=== PATIENT | female | born 1995 | race Caucasian/White ===

== ENCOUNTER 2017-12-13 12:03 | Emergency (ER) | payer OTHER, SELFPAY ==
[2017-12-13 12:06] VITALS: BP 146/84; PULSE 98; RESP 18; TEMP 36.7; O2SAT 99
--- NOTE | 2017-12-13 12:36 | ED.GENADUL ---
Disposition Clinical Impression: Contusion of multiple sites of buttock Disposition: HOME Condition: Stable Instructions: Contusion in Adults (ED) Additional Instructions: Continue to use [id number] pain medication as needed for pain control. Return immediately if you have any saddle anesthesia, severe numbness and tingling or weakness to her lower extremities, fever associated back pain, changes in bowel or bladder function. Otherwise rest over the next couple days and follow-up with your primary care provider if not improving over the next 1-2 weeks. Referrals: Sydney Wiggins NP [Primary Care Provider] - 2 weeks (Follow-up your primary care provider if not showing signs of improvement in the next 1-2 weeks.) Forms: Work Release Medical Decision Making - Medical Decision Making Patient presenting to the emergency department status post fall that occurred 2 hours ago. Patient states that her employer is requiring her to come in for evaluation which she initially did not want to be seen for. Patient states that she landed on her buttocks and slid down approximately 7 stairs. She states only discomfort when sitting on her buttocks otherwise has full range of motion, no gait abnormalities, no numbness, no sounds of cauda equina. Inform patient of risks versus benefit of radiological imaging and at this time after discussing this she declines need for any imaging and states that she is mostly here to her work. I have a high suspicion of this being more contusion given full range of motion, no extreme discomfort noted on exam, and mechanism of more of a fall with sliding-type injury and not tumbling or anything of that nature I do feel that it is appropriate for patient to continue to use [id number] pain medication and to return for new or worsening symptoms. After discussion of diagnosis and plan of care with patient patient agreed and stated no further needs, questions, or concerns at this time. History of Present Illness - General Chief complaint: Orthopedic Stated complaint: FALL INJURY Time Seen by Provider: 12/13/17 12:36 Source: patient, RN notes reviewed Mode of arrival: ambulatory Limitations: no limitations - History of Present Illness Initial comments: Reports approximately 2 hours prior to arrival she was at work and there was some water at the top of some stairs and she slipped. When she slipped she attempted to stop her fall grabbing the handrail which also broke. She landed right on her buttocks and then slid down the stairs. Afterwards she took 600 mg of Motrin to help reduce the pain and went back to work sitting in her chair. Over the next 2 hours she noted increasing discomfort with sitting. Due to this her employer requested that she come into the emergency department for evaluation but she did not want to but given the request she is coming here to be seen. Patient denies any head or neck injury, loss of consciousness, syncope, numbness or tingling, weakness to lower extremities. Onset/Timin -: hour(s) Location: back, buttocks Severity scale (1-10): 7 Quality: aching Consistency: constant Improves with: none Worsens with: none Associated Symptoms: denies other symptoms Treatments Prior to Arrival: NSAID - Related Data Acetaminophen [Tylenol] 1,000 mg PO PRN PRN 04/29/16 Triamcinolone Acetonide [TRIAMCINOLONE ACET 0.5%] 1 applic TP BID PRN #1 gm 03/30/17 Melatonin/Pyridoxine HCl (B6) [Melatonin 3 mg Tablet] 1 each PO HS 07/08/17 Sertraline HCl 50 mg PO DAILY #90 tab-cap 07/08/17 Allergies Allergy/AdvReac Type Severity Reaction Status Date / Time codeine phosphate Allergy Intermediate Skin Rash Unverified 12/13/17 12:11 [From Tylenol-Codeine #3] hydrocodone Allergy Intermediate Nausea, Unverified 12/13/17 12:11 rash Review of Systems Constitutional: denies: chills, fever Eyes: denies: vision change Respiratory: denies: shortness of breath Cardiovascular: denies: chest pain, syncope Gastrointestinal: denies: abdominal pain, diarrhea, constipation Genitourinary: denies: dysuria Musculoskeletal: as per HPI, back pain Neurological: denies: weakness, numbness, paresthesias Past Medical History - Past Medical History Medical history: no medical history urachel cyst, postop seroma Surgical history: cholecystectomy, other (exp of urachel cyst of umbilicus) Family history: CAD/IN - Social History Smoking status: never smoker Alcohol use: none Drug use: none General Exam - General Limitations: no limitations General appearance: alert, in no apparent distress - Head Head exam: Present: atraumatic, normocephalic - Eye Eye exam: Present: normal apperance - Neck Neck exam: Present: full ROM. Absent: tenderness - Respiratory Respiratory exam: Present: normal lung sounds bilaterally. Absent: respiratory distress - Cardiovascular Cardiovascular Exam: Present: regular rate, normal rhythm - Back Exam Back exam: Present: full ROM, paraspinal tenderness (2 lower spine soft tissue), vertebral tenderness (Mild sacral tenderness otherwise unremarkable). Absent: muscle spasm, rash noted - Neurological Exam Neurological exam: Present: alert, oriented X3, normal gait, reflexes normal. Absent: altered, motor sensory deficit - Psychiatric Psychiatric exam: Present: normal affect, normal mood - Skin Skin exam: Present: warm, dry, intact, normal color Course Vital Signs - 24 hr 12/13/17 12:06 Temperature 36.7 C Pulse 98 H Respiratory 18 Rate Blood Pressure 146/84 Pulse Oximetry 99
--- NOTE | 2017-12-13 12:39 | ED.GENADUL_ITS ---
Disposition Clinical Impression: Contusion of multiple sites of buttock Disposition: HOME Condition: Stable Instructions: Contusion in Adults (ED) Additional Instructions: Continue to use [id number] pain medication as needed for pain control. Return immediately if you have any saddle anesthesia, severe numbness and tingling or weakness to her lower extremities, fever associated back pain, changes in bowel or bladder function. Otherwise rest over the next couple days and follow-up with your primary care provider if not improving over the next 1- 2 weeks. Referrals: Sydney Wiggins NP [Primary Care Provider] - 2 weeks (Follow-up your primary care provider if not showing signs of improvement in the next 1-2 weeks.) Forms: Work Release Medical Decision Making - Medical Decision Making Patient presenting to the emergency department status post fall that occurred 2 hours ago. Patient states that her employer is requiring her to come in for evaluation which she initially did not want to be seen for. Patient states that she landed on her buttocks and slid down approximately 7 stairs. She states only discomfort when sitting on her buttocks otherwise has full range of motion, no gait abnormalities, no numbness, no sounds of cauda equina. Inform patient of risks versus benefit of radiological imaging and at this time after discussing this she declines need for any imaging and states that she is mostly here to her work. I have a high suspicion of this being more contusion given full range of motion, no extreme discomfort noted on exam, and mechanism of more of a fall with sliding-type injury and not tumbling or anything of that nature I do feel that it is appropriate for patient to continue to use over-the- counter pain medication and to return for new or worsening symptoms. After discussion of diagnosis and plan of care with patient patient agreed and stated no further needs, questions, or concerns at this time. History of Present Illness - General Chief complaint: Orthopedic Stated complaint: FALL INJURY Time Seen by Provider: 12/13/17 12:36 Source: patient, RN notes reviewed Mode of arrival: ambulatory Limitations: no limitations - History of Present Illness Initial comments: Reports approximately 2 hours prior to arrival she was at work and there was some water at the top of some stairs and she slipped. When she slipped she attempted to stop her fall grabbing the handrail which also broke. She landed right on her buttocks and then slid down the stairs. Afterwards she took 600 mg of Motrin to help reduce the pain and went back to work sitting in her chair. Over the next 2 hours she noted increasing discomfort with sitting. Due to this her employer requested that she come into the emergency department for evaluation but she did not want to but given the request she is coming here to be seen. Patient denies any head or neck injury, loss of consciousness, syncope, numbness or tingling, weakness to lower extremities. Onset/Timin -: hour(s) Location: back, buttocks Severity scale (1-10): 7 Quality: aching Consistency: constant Improves with: none Worsens with: none Associated Symptoms: denies other symptoms Treatments Prior to Arrival: NSAID - Related Data Acetaminophen [Tylenol] 1,000 mg PO PRN PRN 04/29/16 Triamcinolone Acetonide [TRIAMCINOLONE ACET 0.5%] 1 applic TP BID PRN #1 gm Melatonin/Pyridoxine HCl (B6) [Melatonin 3 mg Tablet] 1 each PO HS 07/08/17 Sertraline HCl 50 mg PO DAILY #90 tab-cap 07/08/17 Allergies Allergy/AdvReac Type Severity Reaction Status Date / Time codeine phosphate Allergy Intermediate Skin Rash Unverified 12/13/17 12:11 [From Tylenol-Codeine #3] hydrocodone Allergy Intermediate Nausea, Unverified 12/13/17 12:11 rash Review of Systems Constitutional: denies: chills, fever Eyes: denies: vision change Respiratory: denies: shortness of breath Cardiovascular: denies: chest pain, syncope Gastrointestinal: denies: abdominal pain, diarrhea, constipation Genitourinary: denies: dysuria Musculoskeletal: as per HPI, back pain Neurological: denies: weakness, numbness, paresthesias Past Medical History - Past Medical History Medical history: no medical history urachel cyst, postop seroma Surgical history: cholecystectomy, other (exp of urachel cyst of umbilicus) Family history: CAD/IN - Social History Smoking status: never smoker Alcohol use: none Drug use: none General Exam - General Limitations: no limitations General appearance: alert, in no apparent distress - Head Head exam: Present: atraumatic, normocephalic - Eye Eye exam: Present: normal apperance - Neck Neck exam: Present: full ROM. Absent: tenderness - Respiratory Respiratory exam: Present: normal lung sounds bilaterally. Absent: respiratory distress - Cardiovascular Cardiovascular Exam: Present: regular rate, normal rhythm - Back Exam Back exam: Present: full ROM, paraspinal tenderness (2 lower spine soft tissue) , vertebral tenderness (Mild sacral tenderness otherwise unremarkable). Absent : muscle spasm, rash noted - Neurological Exam Neurological exam: Present: alert, oriented X3, normal gait, reflexes normal. Absent: altered, motor sensory deficit - Psychiatric Psychiatric exam: Present: normal affect, normal mood - Skin Skin exam: Present: warm, dry, intact, normal color Course Vital Signs - 24 hr 12/13/17 12:06 Temperature 36.7 C Pulse 98 H Respiratory 18 Rate Blood Pressure 146/84 Pulse Oximetry 99
[2017-12-13 13:00] VITALS: BP 147/74; PULSE 92; RESP 18; TEMP 36.7; O2SAT 98
== END 2017-12-13 13:00 | disposition home or self-care (01) ==
PROVIDERS: Emergency Provider Physician Assistant
DX: S70.01XA Contusion of right hip, initial encounter (principal); S70.02XA Contusion of left hip, initial encounter; W10.8XXA Fall (on) (from) other stairs and steps, initial encounter; Y99.0 Civilian activity done for income or pay
CPT/HCPCS: 99282

== ENCOUNTER 2018-05-08 08:04 | Emergency (ER) | payer OTHER, SELFPAY ==
[2018-05-08 08:16] VITALS: BP 130/83; PULSE 85; RESP 18; TEMP 36.6; O2SAT 97
--- NOTE | 2018-05-08 08:16 | ED.GENADUL_ITS ---
Discharge Plan Disposition Patient Disposition: HOME Condition: Stable Discharge Details Chief Complaint: Sorethroat Clinical Impression: Strep pharyngitis Primary Care Provider: Sydney Wiggins ED Provider: Sia Hunter Home Meds and New Rx's Prescriptions: New penicillin V potassium 500 mg tablet 500 mg PO BID 10 Days Qty: 19 RF: 0 Continued triamcinolone acetonide 454 GM ointment 1 applic Topical BID PRNQty: 1 RF: 1 melatonin-pyridoxine HCl (B6) 1 EACH tablet 1 ea PO HS RF: 0 sertraline 50 MG tablet 50 mg PO DAILY Qty: 90 RF: 3 acetaminophen [Mapap Extra Strength] 500 MG tablet 1,000 mg PO PRN PRNRF: 0 Discharge Instructions Instructions: Penicillin V (By mouth), Pharyngitis (ED) Additional Instructions: Please return immediately to the emergency department if you develop any new or worsening symptoms or if you become otherwise concerned. It is extremely important that you make an appointment to be seen by your primary care doctor in follow-up for this visit. Stand Alone Forms: Work Release Referrals: Sydney Wiggins, TELEMETRY NURSE [Primary Care Provider] - Medical Decision Making Kylee Juarez is a 22-year-old woman with history of anxiety, depression, obesity, postop complication from hernia repair 01/17 presenting to the emergency department with 3 days of sore throat and no other symptoms. On exam patient is well and nontoxic appearing. There is mild erythema of the posterior pharynx. She has no lymphadenopathy, she has full painless range of motion of the neck. Abdominal wound dressing is clean, dry, intact. Exam/history is not consistent with meningitis, retropharyngeal abscess, peritonsillar abscess, other abscess/deep space infection, impending airway compromise, sepsis, acute emergent process related to her open abdominal wound. Concern for bacterial versus viral pharyngitis. Plan for rapid strep test. Rapid strep positive. Will treat with penicillin. Lengthy discussion with patient regarding return to emergency room precautions and importance of outpatient follow-up with her PCP. She verbalizes understanding of the plan and is amenable. Medical Records Medical records reviewed: Yes I reviewed the patient's medical records. Lab Data Lab results reviewed: Yes I reviewed the patient's lab results. HPI General Mode of arrival: ambulatory . Date/Time Provider Initiated Documentation: 05/08/18 08:15 . Limitations to Documentation: no limitations . Information obtained by: patient, RN notes reviewed and old records reviewed . HPI Narrative: Kylee Juarez is a 22-year-old woman with history of anxiety, depression, obesity presenting to the emergency department with sore throat. Patient reports that her boyfriend tested positive for strep several days ago, and she has had a sore throat for approximately 3 days. She reports that she feels otherwise well. She has had no other pain, no fevers, no shortness of breath, no cough, no nausea/vomiting/diarrhea. Patient does report that she had hernia repair in December at [facility], this was complicated by wound infection. She has had essentially open wound to the abdomen status post surgery since December. She does dressing changes herself. She reports that she has had no increased pain at the site, no increased drainage, and no symptoms that she feels are related to her her postoperative couple occasions. She has been eating and drinking as usual. No other recent illnesses. No recent travel. Related Data Home Medications Medication Instructions Recorded Confirmed acetaminophen [Mapap Extra 1,000 mg PO PRN PRN 04/29/16 05/08/18 Strength] triamcinolone acetonide 1 applic TOPICAL BID PRN #1 gm 03/30/17 05/08/18 melatonin-pyridoxine HCl (B6) 1 ea PO HS 07/08/17 05/08/18 sertraline 50 mg PO DAILY #90 tab-cap 07/08/17 05/08/18 penicillin V potassium 500 mg PO BID 10 Days #19 tab 05/08/18 Previous Rx's Medication Instructions Recorded sertraline 50 mg PO DAILY #90 tab-cap 07/08/17 penicillin V potassium 500 mg PO BID 10 Days #19 tab 05/08/18 Allergies Allergy/AdvReac Type Severity Reaction Status Date / Time codeine phosphate Allergy Intermediate Skin Rash Unverified 05/08/18 08:23 [From Tylenol-Codeine #3] hydrocodone Allergy Intermediate Nausea, Unverified 05/08/18 08:23 rash Review of Systems Review of Systems Constitutional: denies fevers Eyes: denies eye pain ENT: denies facial pain, dental pain, reports sore throat Cardiovascular: denies chest pain, edema Respiratory: denies SOB, cough GI: denies abdominal pain, vomiting, diarrhea : denies flank pain MSK: denies back pain, neck pain, arthralgias, myalgias Skin: denies rash Neuro: denies headaches, lightheadedness, weakness [facility] Surgical History Cholecystectomy (~06/2014) Urachal sinus excsion. (06/11/15) excision urachal cyst and umbilical hernia repair (11/12/15) exploration wound abscess umbilicus (11/19/15) Family History Father Essential hypertension Hyperlipidemia Mother Substance abuse Neoplasm Grandfather No problems noted. Grandfather Heart disease Grandmother No problems noted. 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 pets and animals: Yes pets and animals: cat(s) frequency: 3-4 times per week duration: 15-30 minutes/day Smoking/Tobacco Use Status: Never passive smoking exposure: Yes alcohol intake: never substance use type: does not use margarette/sabianism: Catholic special margarette needs: No Exam Narrative Exam Narrative: Constitutional: well and [id number], pleasant, conversing normally HENT: head atraumatic, normocephalic normal inspection, mucous membranes moist, erythema of the posterior pharynx, no tonsillar edema, uvula midline Eyes: conjunctiva normal, sclera normal, pupils 3mm b/l Neck: no stridor, normal ROM, trachea midline full painless range of motion of the neck, no lymphadenopathy Chest: normal inspection Resp: normal work of breathing, LCTAB Cardio: normal rate, normal rhythm, no murmur appreciated GI: abdomen soft, non-tender, non-distended, dressing in place C/D/I Back: normal inspection, no rash Skin: warm, dry, normal color, no rash Neuro: alert, not altered, grossly non-focal, normal tone Ext: no edema Psych: normal mood, normal affect, normal behavior
[2018-05-08] MEDS: Penicillin V POTASSIUM 500 MG TAB PO (09:12)
== END 2018-05-08 09:16 | disposition home or self-care (01) ==
PROVIDERS: Emergency Provider Student in an Organized Health Care Education/Training Program
DX: J02.0 Streptococcal pharyngitis (principal)
CPT/HCPCS: 87880; 99283

== ENCOUNTER 2018-07-16 19:06 | Emergency (ER) | payer OTHER, MEDICAID, SELFPAY ==
--- NOTE | 2018-07-16 19:17 | NUR.NOTE ---
pt developed a cough and a sore throat a week ago that has progressively gotten worse. no fever or other reportable simptoms. pt states that she has not taken any Tylenol or cold medicine as she found out she is this week
[2018-07-16 19:19] VITALS: BP 113/83; PULSE 93; RESP 15; TEMP 36.7; O2SAT 99
--- NOTE | 2018-07-16 19:34 | W.ED.GENAD ---
Discharge Plan Disposition Patient Disposition: HOME Condition: Improving Discharge Details Chief Complaint: Sorethroat Clinical Impression: Upper respiratory virus Primary Care Provider: Sydney Wiggins ED Provider: Terrell Camarena Home Meds and New Rx's Prescriptions: New Cepacol Sorethroat-Cough 5-7.5 mg lozenge 1 adiel PO Q4H PRN (Reason: cough) Qty: 16 RF: 0 Discharge Instructions Instructions: Upper Respiratory Infection (ED) Additional Instructions: Continue vitamins and plans to follow-up with [facility]. May use Cepacol lozenges as prescribed. Use a teaspoon of honey at night for cough. May use Tylenol 650-975 mg every 6 hours as needed for aches pain or fever. Return if developed worsening cough with production of sputum or any other acute concern Medical Decision Making 23-year-old female presents from home with 5-7 days of cough and sore throat. She is well-appearing, afebrile, no acute distress. She states she is approximately 6-8 weeks by dates and has plans to follow-up with [facility]. Screening strep test obtained and negative. She is , therefore will treat with honey at bedtime, Cepacol lozenges. Do not feel this represents bacterial infection and therefore would defer antibiotics. She will follow-up with Sydney Wiggins for recheck if not improving. HPI General Mode of arrival: ambulatory. Date/Time Provider Initiated Documentation: 07/16/18 19:08. Limitations to Documentation: no limitations. Information obtained by: patient. History of Present Illness 23 year old F presents to the emergency department with the chief complaint of Sore throat and cough for 5-7 days, described as moderate, Quality is described as aching and dull, and is localized to the mouth and chest. Patient reports no radiation. Patient started experiencing this day(s) and it has been constant. No relieving factors improve symptom(s), No exacerbating factors reported . Patient notes cough and fever/chills. Patient did receive the following treatments prior to arrival, none Related Data Home Medications Medication Instructions Recorded Confirmed dextromethorphan-benzocaine 1 adiel PO Q4H PRN #16 each 07/16/18 [Cepacol Sorethroat-Cough] Previous Rx's Medication Instructions Recorded dextromethorphan-benzocaine 1 adiel PO Q4H PRN #16 each 07/16/18 [Cepacol Sorethroat-Cough] Allergies Allergy/AdvReac Type Severity Reaction Status Date / Time codeine phosphate Allergy Intermediate Skin Rash Unverified 07/16/18 19:20 [From Tylenol-Codeine #3] hydrocodone Allergy Intermediate Nausea, Unverified 07/16/18 19:20 rash General Stated Complaint: Sorethroat BOGDAN: 4 Review of Systems Review of Systems 6 systems reviewed and otherwise neg [facility] Surgical History Cholecystectomy (~06/2014) Urachal sinus excsion. (06/11/15) excision urachal cyst and umbilical hernia repair (11/12/15) exploration wound abscess umbilicus (11/19/15) Family History Father Essential hypertension Hyperlipidemia Mother Substance abuse Neoplasm Grandfather No problems noted. Grandfather Heart disease Grandmother No problems noted. Grandmother Essential hypertension Hyperlipidemia Brother Substance abuse Social History Smoking/Tobacco Use Status: Never Alcohol Intake: never Drug use: Never Substance use type: does not use Pets and animals: Yes Pets and animals: cat(s) Duration: 15-30 minutes/day Frequency: 3-4 times per week Geovanna/Sikh: Druze Special geovanna needs: No Do you feel safe at home: Yes Do you feel safe in your relationship?: Yes Exam Narrative Exam Narrative: GEN: awake, alert, oriented 3. Pleasant, well groomed, interactive. HEAD: Normocephalic, atraumatic ENT: Mucous membranes moist, oropharynx unremarkable with slight erythema, no exudate, External ear exam unremarkable. Tympanic membranes clear bilaterally EYES: PERRL, EOMI NECK: Full ROM, no KRISTA, no menigismus CHEST/RESP: Nontender, clear to auscultation bilateral, no wheeze/rhonchi/rales. Cough noted CARDIOVASCULAR: RRR, no murmur, rub ernesto. 2+ Rad pulse bilateral ABDOMEN: Soft, nontender, no mass. +Bowel sounds EXT: Full ROM, no edema, no rash Neuro: Grossly normal neurologic exam, conversant, interactive. Psych: Speech fluent, thoughts congruent, affect normal Course Vital Signs Temperature 36.7 C 07/16/18 19:19 Pulse 93 H 07/16/18 19:19 Respiratory Rate 15 07/16/18 19:19 Blood Pressure 113/83 07/16/18 19:19 Pulse Oximetry 99 07/16/18 19:19 Temperature 36.7 C 07/16/18 19:19 Temperature Source Skin 07/16/18 19:19 Pulse 93 H 07/16/18 19:19 Respiratory Rate 15 07/16/18 19:19 Respiratory Effort 07/16/18 19:21 Blood Pressure 113/83 07/16/18 19:19 Blood Pressure Position Sitting 07/16/18 19:19 Pulse Oximetry 99 07/16/18 19:19 Oxygen Delivery Method Room Air 07/16/18 19:19 Oxygen Flow Rate 0 07/16/18 19:19 Pain Level 6 07/16/18 19:19
[2018-07-16 19:53] VITALS: BP 113/83; PULSE 88; RESP 15; TEMP 36.7; O2SAT 99
== END 2018-07-16 19:56 | disposition home or self-care (01) ==
PROVIDERS: Emergency Provider Emergency Medicine
DX: J06.9 Acute upper respiratory infection, unspecified (principal)
CPT/HCPCS: 87880; 99283

== ENCOUNTER 2018-09-21 10:19 | Emergency (ER) | payer OTHER, MEDICAID, SELFPAY ==
[2018-09-21 10:31] VITALS: BP 135/83; RESP 104; TEMP 36.6; O2SAT 98
--- NOTE | 2018-09-21 10:46 | ED.GENADUL_ITS ---
Discharge Plan Disposition Patient Disposition: HOME Condition: Stable Discharge Details Chief Complaint: RespSymp Clinical Impression: CAP (community acquired pneumonia) Primary Care Provider: Sydney Wiggins ED Provider: Ray Sanchez Home Meds and New Rx's Prescriptions: New doxycycline hyclate 100 mg tablet 100 mg PO BID Qty: 14 RF: 0 Continued Cepacol Sorethroat-Cough 5-7.5 mg lozenge 1 adiel PO Q4H PRN (Reason: cough) Qty: 16 RF: 0 Discharge Instructions Instructions: Community Acquired Pneumonia (ED) Additional Instructions: if not better in a week see your primary care provider if you feel you are worsening, having worsening shortness of breath or persistent vomit return to the emergency department Medical Decision Making 23 yo female who denies chronic medical problems comes in with chief complaint of cough for several days. She states it is productive for yellow/green phlegm. Denies high fevers or recent travel. She is speakingin full sentences on exam in no distress. She has clear lungs throughout though does have small area of crackles on exam in left lower lobe. I suspect viral illness but given lung exam findings will tx as early cap. Advised f/u withp cp and return precautions given. Differential Diagnosis bronchitis, pna HPI General Mode of arrival: ambulatory . Date/Time Provider Initiated Documentation: 09/21/18 10:20 . Limitations to Documentation: no limitations . Information obtained by: patient . History of Present Illness 23 year old F presents to the emergency department with the chief complaint of cough, described as moderate, Patient started experiencing this day(s) (4) and it has been constant. No relieving factors improve symptom(s), No exacerbating factors reported . Patient notes denies fever/chills. Related Data Home Medications Medication Instructions Recorded Confirmed Cepacol Sorethroat-Cough 1 adiel PO Q4H PRN #16 each 09/21/18 doxycycline hyclate 100 mg PO BID #14 tab 09/21/18 Previous Rx's Medication Instructions Recorded Cepacol Sorethroat-Cough 1 adiel PO Q4H PRN #16 each 09/21/18 doxycycline hyclate 100 mg PO BID #14 tab 09/21/18 Allergies Allergy/AdvReac Type Severity Reaction Status Date / Time codeine phosphate Allergy Intermediate Skin Rash Unverified 09/21/18 10:34 [From Tylenol-Codeine #3] hydrocodone Allergy Intermediate Nausea, Unverified 09/21/18 10:34 rash General Stated Complaint: RespSymp BOGDAN: 4 Review of Systems Review of Systems All systems reviewed & are unremarkable except as noted in HPI and below Cardiovascular Denies chest pain Gastrointestinal Denies abdominal pain Integumentary/Breasts Denies rash PFSH Social History Smoking/Tobacco Use Status: Never Alcohol Intake: never Drug use: Never Substance use type: does not use 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 Pets and animals: Yes Pets and animals: cat(s) Duration: 15-30 minutes/day Frequency: 3-4 times per week Geovanna/Mandaen: Worship Special geovanna needs: No Do you feel safe at home: Yes Do you feel safe in your relationship?: Yes Exam Const General: no acute distress Orientation: alert HENMT Head: normal to inspection Ears: external ears normal General nose exam: external nose normal Mouth: moist mucous membranes Eyes General: appearance normal, both eyes and all related structures Neck Neck: normal visual inspection Resp Effort & Inspection: normal respiratory effort and able to speak in complete sentences Cardio Rate: regular rate Skin General skin exam: no rashes or lesions noted Neuro General: alert and oriented x3 Extrem General: normal to inspection Psych Mental Status: mental status grossly normal Course Vital Signs Temperature 36.6 C 09/21/18 10:31 Respiratory Rate 104 H 09/21/18 10:31 Blood Pressure 135/83 09/21/18 10:31 Pulse Oximetry 98 09/21/18 10:31 Temperature 36.6 C 09/21/18 10:31 Temperature Source Skin 09/21/18 10:31 Respiratory Rate 104 H 09/21/18 10:31 Respiratory Effort Non-Labored 09/21/18 10:31 Blood Pressure 135/83 09/21/18 10:31 Blood Pressure Position Sitting 09/21/18 10:31 Pulse Oximetry 98 09/21/18 10:31 Oxygen Delivery Method Room Air 09/21/18 10:31 Oxygen Flow Rate 0 09/21/18 10:31 Pain Level 6 09/21/18 10:31
[2018-09-21 11:02] VITALS: BP 126/79; RESP 99; TEMP 36.6; O2SAT 98
== END 2018-09-21 11:02 | disposition home or self-care (01) ==
PROVIDERS: Emergency Provider Emergency Medicine
DX: J18.9 Pneumonia, unspecified organism (principal)
CPT/HCPCS: 99283

== ENCOUNTER 2018-10-13 11:25 | Outpatient (CLI) | payer OTHER, SELFPAY ==
[2018-10-13 13:55] LABS: HCG Quant, Pregnancy 18440 mIU/mL (1-3)
== END 2018-10-13 11:45 ==
PROVIDERS: Visit Provider Obstetrics & Gynecology
DX: O20.9 Hemorrhage in early pregnancy, unspecified (principal)
CPT/HCPCS: 36415; 84702

== ENCOUNTER 2018-10-17 00:34 | Outpatient (CLI) | payer SELFPAY ==
--- NOTE | 2018-10-17 12:43 | DI.US_ITS ---
SYMPTOMS/DIAGNOSIS: FIRST TRIMESTER BLEEDING, O20.9 OB ULTRASOUND: Many abnormalities cannot be diagnosed. A normal exam does not exclude a congenital anomaly. HISTORY: Date of exam: 10/17/18 LMP: Unknown EDC by LMP: Previous study: wks Range: to EDC by prior us: Findings: Prior surgery/: BIOMETRY: PELVIC MEASUREMENTS: CRL: 8.7 mm 6+6 wks Uterus: 9.8 x 5.3 x 5.9 cm Yolk sac: mm wks Gest sac: mm wks Rt Ovary: x x cm BPD: mm wks HC: mm wks Lt Ovary: x x cm AC: mm wks FL: mm wks Comments: Composite Age (US): 6+6 wks EDC by US: 06/06/2019 Heart Rate: 171 BPM Amniotic Fluid: Oligo Normal Polyhydramnios Movement noted: Yes No Comments: Transabdominal and transvaginal exams were performed. The exam is limited by the patient's body habitus. A gestational sac is seen within the endometrial cavity near the fundus. A pole is identified with crown-rump length measurements corresponding to 6 weeks 6 days. cardiac activity is demonstrated at 171 beats per minute. The ovaries were unable to be visualized. There is a question of a small subchorionic hemorrhage. IMPRESSION: Early intrauterine gestation of 6 weeks 6 days. There is a question of a small chorionic hemorrhage. Exam is limited by the patient's body habitus.
== END 2018-10-17 00:54 ==
PROVIDERS: Visit Provider Obstetrics & Gynecology
DX: O20.9 Hemorrhage in early pregnancy, unspecified (principal)
CPT/HCPCS: 76801

== ENCOUNTER 2018-11-03 16:51 | Outpatient (REF) | payer OTHER, SELFPAY ==
--- NOTE | 2018-11-03 15:30 | PAPFT_PTH ---
PATIENT: Kylee Juarez LOC: [facility] U#:[id number] AGE/SX: 23/F ROOM: RE11/03/[address]: Akilah Albarran : 1995 BED: DIS: 11/03/2018 SPEC #: [id number] RECD: 11/06/18 12:48 STATUS: SANDRA AARON #: [id number] KASH: 11/03/18 15:[address]: Akilah Albarran DEPT: [facility] Cytology RECD BY: Anali Shea ENTERED: 11/06/18 12:48 SP TYPE: PAPFT OT DR: Sydney Wiggins APRN Tissues: 1 - CX/ENDOCX FOR PAP SMEARS Procedures: PAP THIN PREP/UVM Screening Comments: [id number]
[2018-11-03 17:24] LABS: *AMPHETAMINES SCREEN URINE Negative (Negative); *BARBITURATES SCREEN URINE Negative (Negative); *BENZODIAZEPINES SCREEN URINE Negative (Negative); Cannabinoids THC Negative (Negative); Cocaine Screen,Urine Negative (Negative); METHADONE URINE SCREEN Negative (Negative); OPIATES URINE SCREEN Negative (Negative)
[2018-11-03 17:36] LABS: Tricyclic Antidepressants Negative (Negative)
[2018-11-06 13:49] LABS: Chlamydia Result Negative; GC Result Negative; Specimen Description CERVIX
[2018-11-08 11:30] LABS: Buprenorphine Negative; Norbuprenorphine Negative
== END 2018-11-03 17:11 ==
LOC: LBN 16:51
PROVIDERS: Visit Provider Advanced Practice Midwife
DX: Z34.91 Encounter for supervision of normal pregnancy, unspecified, first trimester (principal); Z11.3 Encounter for screening for infections with a predominantly sexual mode of transmission; Z12.4 Encounter for screening for malignant neoplasm of cervix
CPT/HCPCS: 80307; 87491; 87591; 88142; 87086; 87480; 87510; 87660

== ENCOUNTER 2018-11-10 16:07 | Outpatient (CLI) | payer OTHER, SELFPAY ==
[2018-11-10 16:49] LABS: Abs Immature Grans 0.01 k/cumm (0.0-0.09); Absolute Basophil Count 0.03 k/cumm (0.0-0.2); Absolute Eosinophil Count 0.09 k/cumm (0.0-0.7); Absolute Lymphocyte Count 2.72 k/cumm (1.2-3.4); Absolute Monocyte Count 0.56 k/cumm (0.11-0.7); Absolute Neutrophil Count 5.61 k/cumm (1.2-6.7); Basophils % 0.3; HCT 37.2 % (36.0-46.0); HGB 12.2 g/dL (12.0-15.5); Immature Grans % 0.1; Lymphocytes % 30.2; Mean Corp. HGB Concentration 32.8 g/dL (32.0-36.0); Mean Corpuscular Hemoglobin 25.7 pg (27.0-33.0); Mean Corpuscular Volume 78.3 fL (80-95); Mean Platelet Volume 9.3 fL (8.0-11.0); Monocytes % 6.2; Neutrophils % 62.2; Platelet Count 235 x1000/uL (130-400); RBC 4.75 m/cumm (4.00-5.20); RBC Distribution Width 16.2 % (11.7-14.6); White Blood Cell Count 9.02 k/cumm (4.4-10.8)
[2018-11-10 18:16] LABS: TSH (W/Ref FT4) 2.02 uIU/mL (0.358-3.74)
[2018-11-13 10:32] LABS: Hepatitis C Ab w Rflx HCV PCR Negative (NEGAT)
[2018-11-13 11:25] LABS: Hepatitis B Surface Ag Negative (NEGAT)
[2018-11-13 11:29] LABS: HIV-1/2 Ag & Ab Screen Negative (NEGAT)
[2018-11-13 11:54] LABS: Rubella IgG Ab (UVM) Positive; Syphilis Serology (RPR) Negative (Negative); Varicella IgG Antibody Negative
== END 2018-11-10 16:27 ==
PROVIDERS: Visit Provider Obstetrics & Gynecology
DX: Z34.91 Encounter for supervision of normal pregnancy, unspecified, first trimester (principal); O99.89 Other specified diseases and conditions complicating pregnancy, childbirth and the puerperium; R10.9 Unspecified abdominal pain; Z11.4 Encounter for screening for human immunodeficiency virus [HIV]; Z11.59 Encounter for screening for other viral diseases; Z01.84 Encounter for antibody response examination
CPT/HCPCS: 36415; 80055; 82950; 86787; 86803; 86850; 86900; 86901; 87340; 87389; 84443; 86592; 86762; 87086

== ENCOUNTER 2018-12-01 14:18 | Outpatient (CLI) | payer OTHER, SELFPAY ==
[2018-12-01 15:39] LABS: Glucose,1 Hr (Glucola) 99 mg/dL (80-140)
== END 2018-12-01 14:38 ==
PROVIDERS: Advanced Practice Midwife; Visit Provider Obstetrics & Gynecology
DX: Z34.91 Encounter for supervision of normal pregnancy, unspecified, first trimester (principal)
CPT/HCPCS: 36415; 82950

== ENCOUNTER 2019-08-18 17:31 | Emergency (ER) | payer OTHER, MEDICAID, SELFPAY ==
[2019-08-18 17:34] VITALS: BP 162/87; PULSE 113; RESP 16; TEMP 36.2; O2SAT 98
--- NOTE | 2019-08-18 18:31 | ED.GENADUL_ITS ---
Discharge Plan Disposition Patient Disposition: HOME Condition: Stable Discharge Details Chief Complaint: Sorethroat Clinical Impression: Pharyngitis Primary Care Provider: Sydney Wiggins ED Provider: Medhat Pugh Home Meds and New Rx's Prescriptions: No Action acetaminophen 500 mg tablet 1,000 mg PO Q6H RF: 0 Discharge Instructions Instructions: Pharyngitis (ED) Additional Instructions: Rapid strep test negative, culture pending. Rest, [id number] medications as directed for symptomatic control, plenty of fluids to avoid dehydration. Given your symptoms, will set you up for COVID testing on Tuesday as an outpatient through our tent. Please watch for new or worsening symptoms and return to the ER for any concerns At this time your symptoms are concerning for coronavirus. CDC does recommend testing. It takes 48 to 72 hours for the test results to return. You will be contacted by [facility] staff when your results return. If you do not hear from them in 48 to 72 hours, please contact [facility]. Out of an abundance of precaution it is highly recommended that you self quarantine yourself for a total of 14 days or until symptom-free for greater than 24 to 48 hours. It would be prudent to wear a mask at all times, always wash her hands frequently, and follow-up closely with your primary care provider. It is recommended that you call your primary care provider prior to reassessment. If you are going to a health facility, please call/contact them before you arrive. At this time based on your current symptoms the CDC does not recommend admission, and there is no current clinical indication for your admission here at the hospital. However it is vitally important to monitor your symptoms closely, and if you notice any worsening of your symptoms, or any new symptoms such as worsening shortness of breath, difficulty breathing, persistent fever, worsening chills, chest pain, numbness, weakness, or fainting please call and then return immediately to the emergency department for reevaluation. Please call your primary care provider as soon as possible to make them aware of your current situation and for continued monitoring. As always, it was a pleasure participating in your medical care today. Stand Alone Forms: POSITIVE COVID-19/TO BE TESTED Medical Decision Making 24-year-old female with sore throat and URI-like symptoms over the past 5 days or so. She appears well, nontoxic. No recent travel or known exposure to a COVID positive patient, patient reports that family is home with similar s ymptoms. She is currently afebrile, lungs are clear to auscultation, O2 sat 98% on room air. Will obtain rapid strep and reassess Rapid strep negative, culture pending. No clear indication for chest x-ray. This is likely viral syndrome however given her symptoms we will set her up for Covid testing on Tuesday. The patient demonstartes some concerning red flags as noted by the CDC for coronavirus including fever, cough. The patient looks notably clinically well, and does not demonstrate evidence of respiratory distress, significant or severe illness, or sepsis. Per CDC recommendations, coronavirus testing will be performed. Additionally, patient currently does not demonstrate symptoms indicative of admission or further observation here. At this time based on the patient's current clinical picture symptoms are likely secondary to a non- coronavirus viral illness. Out of an abundance of precaution taking into account the current level of national concern, the patient's entire clinical picture, and CDC recommendations, the patient can be discharged home. Per CDC recommendations we will recommend a 14-day quarantine of the patient I have discussed good handwashing techniques, the importance of a mask, and we have also included CDC recommendations for home monitoring and isolation. I have extensively reviewed the treatment plan and discharge instructions with the patient. I have addressed all patient concerns at this time. The patient was made aware of what symptoms to monitor for that would warrant a return to the emergency department. I also discussed the importance of calling the patients's PCP, as well as the ED for any concern on prior to return. Discussed the plan with the patient, they demonstrate verbal understanding and agreement with our assessment and plan at this time. Medical Records Medical records reviewed: Yes I reviewed the patient's medical records. Lab Data Lab results reviewed: Yes I reviewed the patient's lab results. Lab results narrative: Rapid strep negative, culture pending HPI General Mode of arrival: ambulatory . Date/Time Provider Initiated Documentation: 08/18/19 17:40 . Limitations to Documentation: no limitations . Information obtained by: patient . HPI Narrative: This is a 24-year-old female who presents with sore throat and URI-like symptoms for the past 5 days or so. Reports that her family is also at home sick with similar symptoms. She took Tylenol this afternoon for symptomatic control. She reports subjective fever yesterday, ear pressure bilaterally, nasal congestion, mild dry cough. She denies recent travel or known contact with a COVID positive patient. She denies any chest pain, fever, neck pain, abdominal pain, nausea or vomiting, skin rash. Related Data Home Medications Medication Instructions Recorded Confirmed acetaminophen 500 mg tablet 1,000 mg PO Q6H tab 11/10/18 08/18/19 Allergies Allergy/AdvReac Type Severity Reaction Status Date / Time codeine phosphate Allergy Intermediate Skin Rash Unverified 08/18/19 17:40 [From Tylenol-Codeine #3] hydrocodone Allergy Intermediate Nausea, Unverified 08/18/19 17:40 rash General Stated Complaint: Sorethroat BOGDAN: 4 Review of Systems Constitutional Constitutional: Denies fatigue, Denies fever(s) and Denies weakness Eyes Eyes: Denies eye discharge ENT Ears, Nose, Mouth, and Throat: Reports nasal discharge and Reports sore throat Cardiovascular Cardiovascular: Denies chest pain and Denies dyspnea Respiratory Respiratory: Denies cough and Denies dyspnea Gastrointestinal Gastrointestinal: Denies abdominal pain, Denies nausea and Denies vomiting Genitourinary Genitourinary: Denies dysuria Musculoskeletal Musculoskeletal: Denies myalgias, Denies numbness and Denies tingling Integumentary/Breasts Skin/Breast: Denies rash Neurologic Neurologic: Denies numbness, Denies tingling and Denies weakness Endocrine Endocrine: Denies fatigue [facility] Medical History Depressive disorder (Chronic 02/27/14) Diarrhea (Chronic 01/17/17) After cholecystectomy High BMI (Chronic) BMI 54 History of migraine (Chronic) Hypertension (Chronic) Surgical History Cholecystectomy (~06/2014) @ [facility], DR. TORRES. 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 excision. Dr. Perry. exploration wound abscess umbilicus (11/19/15) Dr. Torres. umbilical infection drained, debrided and closed by secondary intention. Urachal sinus excsion. (06/11/15) Dr. Perry. Family History Father Essential hypertension Hyperlipidemia Mother Substance abuse Neoplasm SKIN Grandfather No problems noted. Grandfather Heart disease Grandmother No problems noted. 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 Date GA/Weeks # Outcome Route Wgt Sex Labor Lgth Anesthes ia Location [facility] 03/17/17 No Successful vaginal 2.778 kg Female 12 [facility] 07/03/18 8 No Unsuccessful Delivery Date: 03/17/17 Induction at [facility] due to hypertension and high BMI, IOL with epidural. Akilah Albarran Delivery Date: 07/03/18 SAB at [facility] with Akilah Kwong Exam Const General: cooperative, healthy appearing, comfortable and no acute distress Orientation: alert and awake HENMT Head: normal to inspection, normocephalic and atraumatic Ears: external ears normal, TM's normal bilaterally and EAC's normal General nose exam: nasal discharge clear Mouth: moist mucous membranes Throat: no peritonsillar masses, posterior oropharynx abnormal erythema (Minimal) and uvula not displaced Eyes Conjunctivae: conjunctivae normal Neck Neck: normal visual inspection, full ROM, no lymphadenopathy, no meningeal signs, trachea midline and supple Resp Effort & Inspection: normal respiratory effort and able to speak in complete sentences Auscultation: clear to auscultation bilaterally Cardio Rate: regular rate and other Rhythm: regular rhythm and other (Of note, pulse was 113 in triage, 92 during my evaluation) GI Palpation: soft and nontender Back/Spine/Pelvis Back: No back tenderness Skin General skin exam: no rashes or lesions noted Neuro General: patient alert, patient awake, moves all extremities and no focal motor deficits Sensory Exam: no sensory deficits noted Psych Appearance: grossly normal Mental Status: mental status grossly normal Course Vital Signs Vital signs: Vital Signs Temperature 36.2 C L 08/18/19 17:34 Pulse 113 H 08/18/19 17:34 Respiratory Rate 16 08/18/19 17:34 Blood Pressure 162/87 H 08/18/19 17:34 Pulse Oximetry 98 08/18/19 17:34 Temperature 36.2 C L 08/18/19 17:34 Pulse 113 H 08/18/19 17:34 Respiratory Rate 16 08/18/19 17:34 Respiratory Effort Non-Labored 08/18/19 17:39 Blood Pressure 162/87 H 08/18/19 17:34 Blood Pressure Position Sitting 08/18/19 17:34 Pulse Oximetry 98 08/18/19 17:34 Oxygen Delivery Method Room Air 08/18/19 17:34 Oxygen Flow Rate 0 08/18/19 17:34 Pain Level 7 08/18/19 17:34 Lab/Test Results Lab/Test Results: 08/18/19 17:50 Pharynx Streptococcus Screen (NARESH) - Pending POC Strep Test-[facility](Rapid) Start: 08/18/19 17:41 Freq: .Rapid Strep Test Status: Active Protocol: Document 08/18/19 17:44 MM (Rec: 08/18/19 17:45 MM [id number]) Strep test-[facility](Rapid)-POC POC-Strep test-[facility] (Rapid) Negative POC-Strep test-[facility] (Rapid) Negative
== END 2019-08-18 18:40 | disposition home or self-care (01) ==
PROVIDERS: Emergency Provider Physician Assistant
DX: J02.9 Acute pharyngitis, unspecified (principal); R50.9 Fever, unspecified; I10 Essential (primary) hypertension
CPT/HCPCS: 87880; 99283; 87081

== ENCOUNTER 2019-08-20 08:29 | Outpatient (CLI) | payer OTHER, MEDICAID, SELFPAY ==
[2019-08-21 16:04] LABS: COVID-19 RT-PCR Result Negative (Negative)
== END 2019-08-20 08:49 ==
PROVIDERS: Visit Provider Physician Assistant
DX: Z11.59 Encounter for screening for other viral diseases (principal)
CPT/HCPCS: U0003

== ENCOUNTER 2020-04-24 00:35 | Outpatient (CLI) | payer OTHER, MEDICAID, SELFPAY ==
--- NOTE | 2020-04-24 07:45 | DI.RAD_ITS ---
EXAM: XR LUMBAR SPINE COMPLETE CLINICAL HISTORY: lumbar back pain,M54.5. TECHNIQUE: 2D digital imaging was performed. COMPARISON: No exams were available for comparison FINDINGS: BONES: No fracture or destructive lesion. Vertebral bodies are unremarkable. No facet hypertrophy dhaval ntified. DISKS: Intervertebral disc spaces are maintained. ALIGNMENT: Lumbar spinal alignment is within normal limits. SOFT TISSUE: Surgical clips are seen in the right upper quadrant of the abdomen suggesting prior chol ecystectomy. IMPRESSION: Unremarkable radiographs of the lumbar spine. DATA REPOSITORY: RADIATION DOSE DELIVERED:
== END 2020-04-24 00:55 ==
PROVIDERS: Visit Provider Nurse Practitioner Family
DX: M54.5 Low back pain (principal)
CPT/HCPCS: 72110

== ENCOUNTER 2020-07-03 08:03 | Emergency (ER) | payer OTHER, MEDICAID, SELFPAY ==
--- NOTE | 2020-07-03 08:06 | ED.GENADUL_ITS ---
Discharge Plan Disposition Patient Disposition: HOME Condition: Stable Discharge Details Clinical Impression: Abdominal pain Primary Care Provider: Sydney Wiggins ED Provider: Medhat Pugh Home Meds and New Rx's Prescriptions: Continued acetaminophen 500 mg tablet 1,000 mg PO Q6H RF: 0 Discharge Instructions Instructions: Abdominal Pain (ED) Additional Instructions: CT imaging, urinalysis, laboratory values all unremarkable for obvious emergent process. Please watch for new or worsening symptoms and return to the ER for any concerns. [id number] Tylenol and/or Motrin as directed for discomfort. I do recommend contacting your primary care provider later today or tomorrow to discuss outpatient reevaluation. Medical Decision Making 25-year-old female with past medical history of morbid obesity, cholecystectomy, umbilical hernia repair with a wound complication, presents to the ER today reporting abdominal pain and nausea. Pain began yesterday was more centralized, now slightly worsened in the right lower quadrant. Clinically she appears well, nontoxic. The body habitus does make the evaluation slightly more challenging. Differential includes but not excluded to UTI, renal stone, appendicitis, ovarian cyst, gastroenteritis, hernia, musculoskeletal strain, , ectopic , etc. Ovarian torsion is on the differential but given her evaluation extremely low suspicion. Will obtain IV access, obtain CBC, CMP, lipase, urinalysis and test. Initial laboratory values are unremarkable for obvious emergent process. Discussed options with patient. Given her clinical presentation, body habitus, will obtain CT imaging for further evaluation. CT imaging of the abdomen pelvis read by radiology as negative. Discussed CT findings with patient. She is relieved. We will give a single dose of 30 IV Toradol and reassess. Upon reevaluation patient reports improvement with the IV Toradol. She was given strict return precautions. Otherwise she will contact her primary care provider to discuss outpatient reevaluation. Upon discharge she appears well, nontoxic, no additional questions or concerns. Medical Records Medical records reviewed: Yes I reviewed the patient's medical records. Lab Data Lab results reviewed: Yes I reviewed the patient's lab results. Lab results narrative: Laboratory Tests Range/Units 07/03/20 07/03/20 07/03/20 09:00 09:00 09:08 WBC (4.4-10.8) 10^3/uL 7.35 RBC (3.93-5.22) 10^6/uL 4.79 Hgb (11.2-15.7) g/dL 12.9 Hct (36.0-46.0) % 39.9 MCV (80-95) fL 83.3 MCH (27.0-33.0) pg 26.9 L MCHC (32.0-36.0) % 32.3 RDW (11.7-14.6) % 14.2 Plt Count (130-400) 10^3/uL 209 MPV (8.0-11.0) fL 9.0 Immature Gran % 0.4 Neutrophils % 57.7 Lymphocytes % 33.5 Monocytes % 6.0 Eosinophils % 1.6 Basophils % 0.8 Nucleated RBC % % 0 Absolute Neutrophils (1.2-6.7) 10^3/uL 4.24 Absolute Lymphocytes (1.2-3.4) 10^3/uL 2.46 Absolute Monocytes (0.1-0.8) 10^3/uL 0.44 Absolute Eosinophils (0.0-0.7) 10^3/uL 0.12 Absolute Basophils (0.0-0.2) 10^3/uL 0.06 Sodium (136-145) mmol/L 140 Potassium (3.5-5.1) mmol/L 3.8 Chloride (98-107) mmol/L 107 Carbon Dioxide (21.0-32.0) mmol/L 24.0 Anion Gap (3-11) mmol/L 9.0 BUN (7-18) mg/dL 12 Creatinine (0.55-1.02) mg/dL 0.8 Estimated GFR/1.73 m2 (mL/min/1.73m2) >= 60.00 Glucose (74-106) mg/dL 95 Calcium (8.5-10.1) mg/dL 8.2 L Total Bilirubin (0.2-1.0) mg/dL 0.3 AST (15-37) U/L 15 ALT (14-59) U/L 33 Alkaline Phosphatase (46-116) U/L 70 Total Protein (6.4-8.2) g/dL 6.8 Albumin (3.4-5.0) g/dL 3.4 Lipase (73-393) U/L 110 Urine Color (Yellow) Yellow Urine Clarity (Clear) Sl cloudy Urine pH (5-8) 6.5 Ur Specific [place] (1.005-1.025) >= 1.030 H Urine Protein (Negative) mg/dL Negative Urine Ketones (Negative) mg/dL Negative Urine Blood (Negative) Negative Urine Nitrite (Negative) Negative Urine Bilirubin (Negative) Negative Urine Urobilinogen (Up TO 0.2) EU/dL 0.2 Ur Leukocyte Esterase (Negative) Negative Urine Glucose (Negative) mg/dL Negative HPI General Mode of arrival: ambulatory . Date/Time Provider Initiated Documentation: 07/03/20 08:06 . Limitations to Documentation: no limitations . Information obtained by: patient . HPI Narrative: This is a 25-year-old female past medical history of GERD, morbid obesity, depression, anxiety, cholecystectomy, umbilical hernia repair with local wound infection back in 2016, presenting today for abdominal pain. She states that last night she began to have diffuse periumbilical abdominal discomfort, 4 or 5 out of 10. Mild nausea but no vomiting. Subsequently throughout the night and early this morning she states that the pain is more constant and now a 7 out of 10, crampy in nature. She denies recent travel, sick contacts, bad food exposure. She states that last night she had a temperature of 100.4, she has taken Tylenol. She denies headache, neck pain, chest pain, shortness of breath, vomiting, diarrhea, constipation, dysuria, hematuria, vaginal bleeding or discharge. She states that she had a normal bowel movement over the past 24-48 hours. Pain does not radiate anywhere. Nothing makes the pain worse or better. Patient reports that she is sexually active with 1 person, denies STD exposure or risk. Reports that she has Nexplanon implant, regular cycles, last menstrual cycle over 1 year ago. Related Data Home Medications Medication Instructions Recorded Confirmed acetaminophen 500 mg tablet 1,000 mg PO Q6H tab 11/10/18 06/19/20 Allergies Allergy/AdvReac Type Severity Reaction Status Date / Time codeine phosphate Allergy Intermediate Skin Rash Verified 06/19/20 09:15 [From Tylenol-Codeine #3] hydrocodone Allergy Intermediate Nausea, Verified 06/19/20 09:15 rash General BOGDAN: 4 Review of Systems All systems reviewed & are unremarkable except as noted in HPI and below Constitutional Constitutional: Denies fatigue, Reports fever(s) and Denies headache(s) ENT Ears, Nose, Mouth, and Throat: Denies headache(s) and Denies neck pain Cardiovascular Cardiovascular: Denies chest pain and Denies dyspnea Respiratory Respiratory: Denies cough and Denies dyspnea Gastrointestinal Gastrointestinal: Reports abdominal pain, Denies constipation, Denies diarrhea, Reports nausea and Denies vomiting Genitourinary Genitourinary: Denies abnormal vaginal bleeding, Denies dysuria, Denies pelvic pain and Denies vaginal discharge Musculoskeletal Musculoskeletal: Denies back pain and Denies neck pain Integumentary/Breasts Skin/Breast: Denies rash Neurologic Neurologic: Denies headache(s) Endocrine Endocrine: Denies fatigue [facility] Medical History Candidiasis of breast (03/29/17) Concussion (09/04/12) Depressive disorder (02/27/14) Diarrhea (01/17/17) After cholecystectomy GERD (gastroesophageal reflux disease) Endoscopy 10/05/19 High BMI BMI 54 History of migraine Hypertension Screening cholesterol level Wound abscess Surgical History Cholecystectomy (~06/2014) @ [facility], DR. TORRES. 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 excision. Dr. Perry. exploration wound abscess umbilicus (11/19/15) Dr. Torres. umbilical infection drained, debrided and closed by secondary intention. Urachal sinus excsion. (06/11/15) Dr. Perry. 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 Pets and animals: No Sexually active: Yes Do you think of yourself as: straight/heterosexual Current gender identity: female What is your relationship status?: living with partner How often do you talk on the phone with friends or family?: three or more times per week How often do you get together with friends or relatives?: once per week How often do you attend worship or islam services?: decline to answer Do you belong to any clubs or organized social groups?: no Panel score (0-1 are the most socially isolated patients): 2 What type of physical activity do you participate in: walking Duration: < 15 minutes/day Frequency: 1-2 times per week Geovanna/Yarsanism: Nondenominational Special geovanna needs: No Seatbelt use: always Helmet use: Yes Helmet use: always Drive intox or ride w/intox escort vehicle driver: No Do you feel safe at home: Yes Do you feel safe in your relationship?: Yes History History 3 Para 1 Hx # Term Pregnancies 1 Multiple births 0 Hx # Pregnancies 0 Ectopic pregnancies 0 AB induced 0 Hx Number of Living Children 1 AB spontaneous 1 Past Pregnancies Del. Date GA/Weeks # Outcome Route Wgt Sex Labor Lgth Anesthes ia Location [facility] 03/17/17 No Successful vaginal 2778.253 g Female 12 [facility] 07/03/18 8 No Unsuccessful Delivery Date: 03/17/17 [place] [facility] [place] and high BMI, IOL with epidural. Akilah Albarran Delivery Date: 07/03/18 SAB at [facility] with Akilah Kwong Exam Const General: cooperative, healthy appearing, comfortable and no acute distress Orientation: alert, awake and oriented x3 HENMT Head: normal to inspection, normocephalic and atraumatic Eyes General: appearance normal, both eyes and all related structures Eyelids: eyelids normal Conjunctivae: conjunctivae normal Neck Neck: normal visual inspection, trachea midline and supple Resp Effort & Inspection: normal respiratory effort and able to speak in complete sentences Auscultation: clear to auscultation bilaterally Cardio Rate: regular rate Rhythm: regular rhythm GI Inspection: normal to inspection and obesity Palpation: soft, not firm, no guarding and tender in the RLQ (Diffuse, mild); with no rebound tenderness Auscultation: normal bowel sounds Back/Spine/Pelvis Back: no CVA tenderness and No back tenderness Skin General skin exam: no rashes or lesions noted Neuro General: patient alert, patient awake, moves all extremities and no focal motor deficits Cognition: normal cognition Speech: speech normal Gait: normal gait Sensory Exam: no sensory deficits noted Extrem General: normal to inspection and full ROM Psych Appearance: grossly normal Mental Status: mental status grossly normal
[2020-07-03 08:12] VITALS: PULSE 94; RESP 18; TEMP 36.7; O2SAT 98
[2020-07-03 09:12] LABS: Abs Immature Grans 0.03 10^3/uL (0.0-0.06); Absolute Basophil Count 0.06 10^3/uL (0.0-0.2); Absolute Eosinophil Count 0.12 10^3/uL (0.0-0.7); Absolute Lymphocyte Count 2.46 10^3/uL (1.2-3.4); Absolute Monocyte Count 0.44 10^3/uL (0.1-0.8); Absolute Neutrophil Count 4.24 10^3/uL (1.2-6.7); Basophils % 0.8; Eosinophils % 1.6; HCT 39.9 % (36.0-46.0); HGB 12.9 g/dL (11.2-15.7); Immature Grans % 0.4; Lymphocytes % 33.5; MCH 26.9 pg (27.0-33.0); MCHC 32.3 % (32.0-36.0); MCV 83.3 fL (80-95); Neutrophils % 57.7; Nucleated RBC 0 %; Platelet Count 209 10^3/uL (130-400); RBC 4.79 10^6/uL (3.93-5.22); RDW 14.2 % (11.7-14.6); RDW-SD 43.3 fL; WBC 7.35 10^3/uL (4.4-10.8)
[2020-07-03 09:20] LABS: Bilirubin Negative (Negative); Blood Negative (Negative); Clarity Sl Cloudy (Clear); Glucose Negative (Negative); Ketones Negative (Negative); Leukocyte Esterase Negative (Negative); Nitrite Negative (Negative); Specific Gravity >= 1.030 (1.005-1.025); Urobilinogen 0.2 EU/dL (Up TO 0.2); pH 6.5 (5-8)
[2020-07-03 09:22] LABS: ALT 33 U/L (14-59); AST 15 U/L (15-37); Albumin 3.4 g/dL (3.4-5.0); Alkaline Phosphatase 70 U/L (46-116); BUN 12 mg/dL (7-18); Bilirubin, Total 0.3 mg/dL (0.2-1.0); CREATININE 0.8 mg/dL (0.55-1.02); Calcium 8.2 mg/dL (8.5-10.1); Chloride 107 mmol/L (98-107); Glucose 95 mg/dL (74-106); Lipase 110 U/L (73-393); Potassium 3.8 mmol/L (3.5-5.1); Sodium 140 mmol/L (136-145); Total Protein 6.8 g/dL (6.4-8.2)
--- NOTE | 2020-07-03 09:30 | DI.CT_ITS ---
EXAM: CT ABDOMEN PELVIS W CLINICAL HISTORY: rlq pain TECHNIQUE: Imaging Protocol: Axial computed tomography images with coronal and sagittal reformatted images were created and reviewed CONTRAST MATERIAL: Intravenous: Omnipaque 350 Contrast volume:125 Oral: No COMPARISON: CT ABD PELVIS WITH CONTRAST from 04/19/2017 FINDINGS: The examination is limited due to patient motion artifact. ABDOMEN: Lung Bases: Normal where visualized. Liver: There is diffuse decreased attenuation consistent with fatty infiltration. No measurable mass . The spleen measures 21 cm in length. Portal, Superior Mesenteric, and Splenic Veins: Unremarkable. Gallbladder and Biliary Tract: Status post cholecystectomy. No biliary ductal dilatation. Pancreas: Normal density, no abnormal calcifications or inflammatory process. Spleen: Normal. Adrenals: No masses seen. Kidneys: Normal size, contour and axis. No radiodense stones or obstructive uropathy. No masses seen. Abdominal Aorta: Abdominal portion non-dilated. Bowel: No obstruction or bowel wall thickening. Appendix is unremarkable. Peritoneal Cavity: No ascites, collection or mesenteric inflammatory response. No free air. Lymph Nodes: Within normal limits. Bones: Within normal limits for the patient's age. Soft Tissues: There is scarring in the anterior abdominal wall which has decreased compared to the pr ior examination. PELVIS: Bladder: Symmetric distention, no gross wall thickening. Reproductive Organs: Unremarkable as visualized. Lymph Nodes: Within normal limits. Bones: Within normal limits for the patient's age. IMPRESSION: No acute abdominal pelvic process. No evidence of an acute appendicitis. Findings were discussed with the emergency department on the date of the examination. RADIATION DOSE DELIVERED: 1,709.4mGy.cm Total DLP DATA REPOSITORY: All CT scans at this facility are submitted to the National Radiology Data Registry (NRDR) Dose Index Registry (DIR) with the [employer] [place] [employer] (ACR). RADIATION OPTIMIZATION: All CT scans at this facility use at least one of these dose optimization te chniques: automated exposure control; mA and/or kV adjustment per patient size (includes targeted exa ms where dose is matched to clinical indication); or iterative reconstruction.
[2020-07-03] MEDS: Omnipaque 350 MG/ML 50 ML BTL IJ ×3 (09:42→09:47)
[2020-07-03] MEDS: Normal Saline - Diluent 50 ML VIAL IV (09:43)
[2020-07-03 10:34] VITALS: BP 133/67; PULSE 77; RESP 20; TEMP 36.3; O2SAT 99
[2020-07-03] MEDS: Ketorolac 30 MG/ML VIAL IVP (10:39)
== END 2020-07-03 11:15 | disposition home or self-care (01) ==
PROVIDERS: Emergency Provider Physician Assistant
DX: R10.31 Right lower quadrant pain (principal)
CPT/HCPCS: 80053; 81025; 83690; 96374; 99285; 74177; 81003; 85025; 99283; J1885; Q9967

== ENCOUNTER 2020-08-04 10:33 | Outpatient (CLI) | payer OTHER, MEDICAID, SELFPAY ==
[2020-08-05 16:17] LABS: COVID-19 RT-PCR UVMMC Result Negative (Negative)
== END 2020-08-04 10:34 | disposition home or self-care (01) ==
DX: Z20.822 Contact with and (suspected) exposure to COVID-19 (principal)
CPT/HCPCS: U0003

== ENCOUNTER 2020-09-05 17:45 | Outpatient (REF) | payer OTHER, MEDICAID, SELFPAY ==
[2020-09-09 14:54] LABS: Helicobacter pylori Ag, Feces Negative (Negative)
== END 2020-09-05 17:46 | disposition home or self-care (01) ==
LOC: LBN 17:45
DX: R10.9 Unspecified abdominal pain (principal); R63.8 Other symptoms and signs concerning food and fluid intake; Z01.818 Encounter for other preprocedural examination
CPT/HCPCS: 87338

== ENCOUNTER 2020-11-26 19:15 | Outpatient (REF) | payer OTHER, MEDICAID, SELFPAY | END 2020-11-26 19:16 | disposition home or self-care (01) | LOC: LBN 19:15 | PROVIDERS: Visit Provider Nurse Practitioner Family | DX: N39.0 Urinary tract infection, site not specified (principal) | CPT/HCPCS: 87077; 87086; 87186 ==

== ENCOUNTER 2023-02-25 08:56 | Emergency (ER) | payer OTHER, MEDICAID, SELFPAY ==
--- NOTE | 2023-02-25 09:00 | RT.EKG_ITS ---
APPROVED REPORT Exam: Resting ECG Reason for Exam: palpatations Patient Location: E HR:105 bpm ECG Measurements Heart Rate 105 AXIS [place] 115 P 60 QRSd 84 QRS -16 QT 334 T 15 QTc 442 Conclusion Sinus tachycardia...rate> 99 Narrow complex sinus tachycardia at a rate of 105. Left axis deviation no signs of LVH based on volt age criteria. Short [place] at 115 ms. No obvious delta wave. QTc within normal limits. No ST segment abnormalities beyond mild ST segment depressions V4 through V6. No T wave abnormalities. No prior f or comparison.
--- NOTE | 2023-02-25 09:02 | W.ED.GENAD ---
Discharge Plan Disposition Patient Disposition: Home Discharge Details Clinical Impression: Palpitations Primary Care Provider: Roberto Fernandes ED Provider: Pierre Adams Home Meds and New Rx's Prescriptions: Continued acetaminophen 500 mg tablet 1,000 mg PO Q6H dextroamphetamine-amphetamine [Adderall] 20 mg tablet 20 mg PO BID MDD 20mg Qty: 56 0RF Rx Instructions: Take 20mg in AM and 20mg in early afternoon. trazodone 150 mg tablet 150 mg PO DAILY Qty: 90 3RF Discharge Instructions Instructions: Heart Palpitations (ED) Additional Instructions: You are seen in the emergency department for your palpitations. Your EKG showed no sign of heart attacks. Your blood work showed that your kidneys are working well and that you had no abnormalities of your thyroid. As we discussed, please return to the emergency department if you develop pain in your chest cannot eat or drink as result of nausea or vomiting or develop any headaches. Otherwise please follow-up with your primary care provider next week. HPI General Date/Time Provider Initiated Documentation: 02/25/23 09:02. HPI Narrative: MDM This is an overall very well-appearing normothermic and mildly tachycardic 27-year-old female with decreased energy, fatigue, and palpitations concerning for multiple etiologies. Her ECG is nonischemic and she lacks cardiac risk factors beyond elevated BMI. Given that she is not having chest pain will obtain a single troponin and if negative will be reassured against ACS. She does have a short CT but has not had any recent syncope and has no obvious delta wave so my suspicion for WPW is low. No black nor bloody stools to suggest acute blood loss anemia. Given her generalized fatigue and increased depression we will ensure that she is not markedly hypothyroid. Soft nontender abdomen so I am not concerned for any acute intra-abdominal process. Patient does report decreased stool output over the past several weeks however she is not obstipated and given her reassuring abdominal exam and her lack of vomiting my suspicion for SBO is low. I considered PE however the patient is not short of breath and is not having chest pain so I did not order a D-dimer. Patient denies suicidal and homicidal ideation so we will defer mental health screening at this point time. No pain out of proportion to suggest necrotizing soft tissue infection. 10:30 AM CBC lacks anemia thrombocytopenia and leukocytosis. Negative troponin. Basic metabolic panel showing very mild hypokalemia. No JESSICA. No hyperglycemia. No anion gap. Reassuring normal TSH. Reassuring normal magnesium. 10:45 AM Negative qualitative hCG. Tachycardia resolved in the ED. I met with patient and explained her reassuring results. I have asked health rn unit manager Barbara to have the patient seen next week by her primary care provider. Patient and I discussed that she should return to the emergency department if she developed fevers any abdominal pain or could not eat or drink. She will plan on following up with a primary care provider to her vitamin levels checked. She understood her return indications and we will proceed with an empiric trial of expectant outpatient management. Chronic conditions affecting the care of the patient: GERD depression insomnia History obtained from an outside historian: N/A [place] [facility] [place] [Diagnostic interpretations performed by me:] [Per my independent interpretation EKG shows:] Narrow complex sinus tachycardia at a rate of 105. Left axis deviation no signs of LVH based on voltage criteria. Short CT at 115 ms. No obvious delta wave. QTc within normal limits. No ST segment abnormalities beyond mild ST segment depressions V4 through V6. No T wave abnormalities. No prior for comparison. Medications: IV fluids Social determinants of health affecting disposition: N/A Management discussed with: N/A Treatment/interventions considered: N/A Response to therapies provided: Honeydew improved following fluids in the ED HPI This is a 27-year-old female with a remote history of Hayden-en-Y gastric bypass 2 years ago now in the emergency department in the setting of fatigue increased depression anxiety for the past approximately 1 month associated with intermittent palpitations. Patient reports over the past year she has not been adherent with her vitamins from her Hayden-en-Y gastric bypass. She also over the past several months has had an unintentional 18 pound weight loss. She has had decreased appetite. She has had no bowel movements in the past 2 weeks however she notes that she has been intermittently passing gas. She has not been vomiting. She denies black bloody stools. She denies shortness of breath chest pain and syncope. She does intermittently feel dizzy. She denies suicidal ideation. 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 She denies routine tobacco, ethanol, and illicits. No dysuria nor frequency. Exam General: Well-appearing in no acute distress speaking in complete sentences. Head: Normocephalic, atraumatic. Eye: Extraocular eye movements intact. No conjunctival injection. No scleral icterus. Ear, nose, mouth, throat: Grossly normal inspection. Normal voice, handling secretions normally. Neck: Trachea midline. Cardiovascular: Well-perfused distal extremities. Regular rate and rhythm. No murmurs. Respiratory: Nonlabored respiration. Clear lungs bilaterally. Gastrointestinal: Nondistended abdomen. Soft nontender abdomen. Musculoskeletal: No edema. Moving all 4 extremities spontaneously. Skin: Normal for age and race, grossly normal temperature and turgor. No acute rash. Neurologic: Alert and appropriate, no apparent acute deficits. Psychiatric: Mood and manner are appropriate. Grooming and personal hygiene are appropriate. Related Data Home Medications Medication Instructions Recorded Confirmed acetaminophen 500 mg tablet 1,000 mg PO Q6H 11/10/18 10/15/22 dextroamphetamine-amphetamine 20 20 mg PO BID #56 tabs 02/09/23 mg tablet (Adderall) trazodone 150 mg tablet 150 mg PO DAILY #90 tabs 02/09/23 Previous Rx's Medication Instructions Recorded dextroamphetamine-amphetamine 20 20 mg PO BID #56 tabs 02/09/23 mg tablet (Adderall) trazodone 150 mg tablet 150 mg PO DAILY #90 tabs 02/09/23 Allergies Allergy/AdvReac Type Severity Reaction Status Date / Time codeine phosphate Allergy Intermediate Skin Rash Verified 10/15/22 14:58 [From Tylenol-Codeine #3] hydrocodone Allergy Intermediate Nausea, Verified 10/15/22 14:58 rash General BOGDAN: 3 PFSH All Active Problems (Updated 02/25/23 @ 10:45 by Pierre Adams MD) Palpitations (Acute) Dental abscess (Acute) Insomnia (Acute) Abdominal pain (Acute) GERD (gastroesophageal reflux disease) (Chronic) Endoscopy 10/05/19 Elevated blood pressure reading (Acute 03/22/17) High BMI (Chronic) BMI 54 Depressive disorder (Chronic 02/27/14) Anxiety (Chronic 02/27/14) Diarrhea (Chronic 01/17/17) After cholecystectomy History of migraine (Chronic) Nonintractable headache (Chronic 03/04/17) Screening cholesterol level (Acute) Medical History Candidiasis of breast (11/28/17) Concussion (09/04/12) Hypertension Wound abscess Surgical History Cholecystectomy (~06/2014) @ [facility], DR. TORRES. 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 excision. Dr. Perry. exploration wound abscess umbilicus (11/19/15) Dr. Torres. umbilical infection drained, debrided and closed by secondary intention. Urachal sinus excsion. (06/11/15) Dr. Perry. 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 Pets and animals: No Sexually active: Yes Do you think of yourself as: straight/heterosexual Current gender identity: female What is your relationship status?: living with partner How often do you talk on the phone with friends or family?: three or more times per week How often do you get together with friends or relatives?: once per week How often do you attend protestant or yazidism services?: decline to answer Do you belong to any clubs or organized social groups?: no Panel score (0-1 are the most socially isolated patients): 2 What type of physical activity do you participate in: walking Duration: < 15 minutes/day Frequency: 1-2 times per week Geovanna/Temple: Gnosticist Special geovanna needs: No Seatbelt use: always Helmet use: Yes Helmet use: always Drive intox or ride w/intox taxicab driver: No Do you feel safe at home: Yes Do you feel safe in your relationship?: Yes History History 3 Para 1 Hx # Term Pregnancies 1 Multiple births 0 Hx # Pregnancies 0 Ectopic pregnancies 0 AB induced 0 Hx Number of Living Children 1 AB spontaneous 1 Past Pregnancies Del. Date GA/Weeks # Preg Succ Route Wgt Sex Labor Lgth Anesthesia Location Prov Complic 03/17/17 No vaginal 2778.253 g Female 12 [facility] 07/03/18 8 No Delivery Date: 03/17/17 Last Updated by: Akilah Albarran CNM [place] [facility] [place] and high BMI, IOL with epidural. Delivery Date: 07/03/18 Last Updated by: Akilah Albarran CNM SAB at [facility] with D and C
[2023-02-25 09:03] VITALS: BP 117/76; PULSE 105; RESP 22; TEMP 36.5; O2SAT 97
--- OUTSIDE RECORDS SUMMARY | 2023-02-25 09:36 | XMS_ITS | Continuity of Care Document ---
Author Name Unknown Organization [facility] Address [address] [place] [id number] Care Team Providers Care Manager Social Responsibility Name Role Phone Buster Andrade Primary Care Physician [phone] Encounter [facility]TT[facility]_[place] FIN NBR [id number] Date(s): 06/22/22 - 06/22/[address] [address] Encounter Diagnosis Abdominal pain(Discharge Diagnosis) - 06/22/22 Discharge Disposition: Home or Self Care Attending Physician: Harsha Alcantara MD Admitting Physician: Harsha Alcantara MD Allergies, Adverse Reactions, Alerts Substance Reaction Severity Status Vicodin Unknown Unknown Active Tylenol with Codeine #3 Unknown Unknown Acti ve Assessment and Plan Future Appointments Functional Status 06/22/22 Family Member Travel History No recent t ravel Recent Travel History No recent travel Other exposure to Infectious Disease Non e Immunizations Given and Recorded Vaccine Date Status Refusal Reason SARS-CoV-2 (COVID-19) mRNA-1273 vaccine 1 11/18/20 Recorded SARS-CoV-2 (COVID-19) mRNA-1273 vaccine 2 10/22/20 Recorded 1Result Comment: Unit: Unknown 2Result Comment: Unit: Unknown Medications calcium citrate 2 Unknown, 0 Refill(s) Start Date: 02/15/22 Status: Ordered multivitamin adult, oral tablet 1 Unknown, 0 Refill(s) Start Date: 02/15/22 Status: Ordered norethindrone 5 mg oral tablet 5 mg = 1 tab, Oral, Daily, # 30 tab, 0 Refill(s) Start Date: 03/03/22 Status: Suspended omeprazole 20 mg oral delayed release capsule 20 mg = 1 cap, Oral, Daily, # 14 cap, 0 Refill(s), 167, cm, 06/22/22 15:59:00 EST, Height/Length Dosing, 104, kg, 06/22/22 15:59:00 EST, Weight Dosing Start Date: 06/22/22 Status: Ordered ondansetron 4 mg oral tablet, disintegrating 4 mg = 1 tab, Oral, TID, # 10 tab, 0 Refill(s), 167, cm, 06/22/22 15:59:00 EST, Height/Length Dosing, 104, kg, 06/22/22 15:59:00 EST, Weight Dosing Start Date: 06/22/22 Status: Ordered Tylenol 325 mg oral capsule 1 Unknown, 0 Refill(s) Start Date: 02/15/22 Status: Ordered Vitamin B12 0 Refill(s) Start Date: 02/15/22 Status: Ordered Vitamin D2 1.25 mg (50,000 intl units) oral capsule 0 Refill(s) Start Date: 02/15/22 Status: Ordered Problem List Condition Confirmation Course Effective Dates Status Health St atus Informant Abnormal uterine bleeding Confirmed Active Anxiety Confirmed Active Abdominal wall fluid collections Confirmed Active Intra-abdominal collection Confirmed Active Calculus of kidney Confirmed Active Kidney stone Confirmed Active Mixed anxiety and depressive disorder Confirmed Active Procedures Procedure Date Related Diagnosis Body Site Status Hysteroscopy with D&C 07/13/21 Com pleted Gastric bypass 09/2020 Completed EGD (esophagogastroduodenosc opy) gastric outlet reduction 10/04/19 Complet ed Dilation and curettage 07/26/18 Co mpleted Delayed closure of abdominal wall 1 04/04/18 Completed Exploratroy and explantation of abdominal mesh 03/28/18 Completed Wound opened up 2 01/25/18 Complet ed open hernia repair 05/2017 Comple fadia Cholecystectomy 2016 Completed excison of seroma 04/13/11 Complet ed Extraction of wisdom tooth Completed Open repair of incisional hernia 3 Completed 1Delayed primary closure of abdominal wound 2and cleaned Results Laboratory List Name Date Lactic Acid 06/22/22 CBC w/ Diff 06/22/22 Comprehensive Metabolic Panel (CMP) 06/22 Lipase Level 06/22/22 Test Urine Qual 06/22/22 Urinalysis Microscopic 06/22/22 Urinalysis with Micro if Indicated and C ulture if Indicated 06/22/22 Automated Diff 06/22/22 Most recent to oldest [Reference Range]: 1 WBC [4.8-10.8 K/mcL] 5.5 K/mcL (06/22/22 4:06 PM) RBC [4.20-6.10 Million/mcL] 4.04 Million /mcL *LOW* (06/22/22 4:06 PM) Neutro Auto [42.2-75.2 %] 50.3 % (06/22/22 4:06 PM) Lymph Auto [20.5-51.1 %] 42.9 % (06/22/22 4:06 PM) [place] Auto [1.7-9.3 %] 5.2 % (06/22/22 4:06 PM) Basophil Auto [0.0-0.8 %] 0.5 % (06/22/22 4:06 PM) BUN [8-26 mg/dL] 17 mg/dL (06/22/22 4:06 PM) UA Color LIGHT YELL *NA* (06/22/22 4:05 PM) UA WBC [0-3] 0-3 (06/22/22 4:05 PM) Glucose Level [74-106 mg/dL] 104 mg/dL (06/22/22 4:06 PM) Potassium Level [3.5-5.1 mmol/L] 3.7 mmo l/L (06/22/22 4:06 PM) Baso Absolute [0.0-0.2 K/mcL] 0.0 K/mcL (06/22/22 4:06 PM) MCV [80.0-99.0 fL] 91.6 fL (06/22/22 4:06 PM) UA Urobilinogen [0.2] 0.2 (06/22/22 4:05 PM) UA Bili [Negative] Negative (06/22/22 4:05 PM) UA Ketones [Negative] Negative (06/22/22 4:05 PM) AST [15-41 IntlUnit/L] 13 IntlUnit/L *LOW* (06/22/22 4:06 PM) ALT [14-54 IntlUnit/L] 10 IntlUnit/L *LOW* (06/22/22 4:06 PM) MCHC [32.0-36.0 g/dL] 32.4 g/dL (06/22/22 4:06 PM) Osmolality [275-295 mOsm/kg] 272 mOsm/kg *LOW* (06/22/22 4:06 PM) Sodium Level [134-143 mmol/L] 135 mmol/L (06/22/22 4:06 PM) UA RBC [0-3] 0-3 (06/22/22 4:05 PM) UA Leuk Est [Negative] Negative (06/22/22 4:05 PM) Lymph Absolute [1.2-3.4 K/mcL] 2.4 K/mcL (06/22/22 4:06 PM) UA Nitrite [Negative] Negative (06/22/22 4:05 PM) UA Glucose [Negative] Negative (06/22/22 4:05 PM) Hct [37.0-52.0 %] 37.0 % (06/22/22 4:06 PM) UA Bacteria [None Seen] 1+ *ABN* (06/22/22 4:05 PM) Lipase Level [18-51 unit/L] 49 unit/L (06/22/22 4:06 PM) Calcium Level [8.9-10.3 mg/dL] 9.0 mg/dL (06/22/22 4:06 PM) [place] Absolute [0.1-0.6 K/mcL] 0.3 K/mcL (06/22/22 4:06 PM) Albumin Level [3.5-5.0 g/dL] 4.1 g/dL (06/22/22 4:06 PM) Protein Total [6.5-8.1 g/dL] 6.8 g/dL (06/22/22 4:06 PM) UA Protein [Negative] Negative (06/22/22 4:05 PM) MCH [27.0-31.0 pg] 29.7 pg (06/22/22 4:06 PM) Neutro Absolute [1.4-6.5 K/mcL] 2.8 K/mc L (06/22/22 4:06 PM) Bilirubin Total [0.2-1.2 mg/dL] 0.8 mg/d L (06/22/22 4:06 PM) Hgb [12.0-18.0 g/dL] 12.0 g/dL (06/22/22 4:06 PM) Alk Phos [38-130 IntlUnit/L] 56 IntlUnit /L (06/22/22 4:06 PM) UA Blood [Negative] Trace *ABN* (06/22/22 4:05 PM) MPV [7.4-10.4 fL] 8.9 fL (06/22/22 4:06 PM) UA Spec Grav <=1.005 *NA* (06/22/22 4:05 PM) Platelets [130-400 K/mcL] 190 K/mcL (06/22/22 4:06 PM) CO2 [22-32 mmol/L] 23 mmol/L (06/22/22 4:06 PM) Eos Absolute [0.0-0.2 K/mcL] 0.0 K/mcL (06/22/22 4:06 PM) Lactic Acid Lvl [0.5-2.2 mmol/L] 0.6 mmo l/L (06/22/22 7:45 PM) UA Squam Epithelial [0-3] 0-3 (06/22/22 4:05 PM) UA pH 6.00 *NA* (06/22/22 4:05 PM) UA Appear [Clear] Clear (06/22/22 4:05 PM) Chloride Level [98-111 mmol/L] 103 mmol/ L (06/22/22 4:06 PM) RDW-CV [11.5-14.5 %] 13.2 % (06/22/22 4:06 PM) A/G Ratio 1.5 *NA* (06/22/22 4:06 PM) BUN/Creat Ratio [8.0-20.0] 29.8 *HI* (06/22/22 4:06 PM) Globulin 2.7 *NA* (06/22/22 4:06 PM) Imm Gran Absolute 0.01 *NA* (06/22/22 4:06 PM) Imm Gran Auto [0.0-0.5 %] 0.2 % (06/22/22 4:06 PM) UA Culture Ind?. [No] No (06/22/22 4:05 PM) Urine Srce Clean Catch (06/22/22 4:05 PM) Creatinine Level [0.44-1.00 mg/dL] 0.57 mg/dL (06/22/22 4:06 PM) Anion Gap [3.0-12.0] 9.0 (06/22/22 4:06 PM) Eos, Auto [0.00-3.00 %] 0.90 % (06/22/22 4:06 PM) U hCG Ql [Negative] Negative (06/22/22 4:05 PM) eGFR CKD-EPI [>=60 mL/min/1.73 m2] 129 m L/min/1.73 m2 (06/22/22 4:06 PM) Radiology Reports * Exam Date Time Procedure Performing Provider Status 06/22/22 8:[address] Angio Abdomen and Pelvis Geovanna Desir; Auth (Verified) Notes: (CT Angio Abdomen and Pelvis) Reason For Exam: abdominal pain, question SMA thrombus on CT today CT Angio Abdomen and Pelvis PROCEDURE INFORMATION: Exam: CTA Abdomen and Pelvis With Contrast Exam date and time: 06/22/2022 8:18 PM Age: 27 years old Clinical indication: Abdominal pain; Generalized; Additional info: Abdominal pain, question sma thrombus on CT today TECHNIQUE: Imaging protocol: Computed tomographic angiography of the abdomen and pelvis with contrast. 3D rendering (Not supervised by radiologist): MIP and/or 3D reconstructed images were created by the technologist. Radiation optimization: All CT scans at this facility use at least one of these dose optimization techniques: automated exposure control; mA and/or kV adjustment per patient size (includes targeted exams where dose is matched to clinical indication); or iterative reconstruction. Contrast material: [id number]; Contrast volume: 100 ml; Contrast route: INTRAVENOUS (IV); REPORTING DATA: Count of CT and Cardiac NM exams in prior 12 months: This patient has received 2 known CTs and 0 known cardiac nuclear medicine studies in the 12 months prior to the current study. COMPARISON: CT ABD/PELVIS W CONTRAST 06/22/2022 5:22 PM FINDINGS: Aorta: No aortic aneurysm. No aortic dissection. Celiac trunk and mesenteric arteries: No occlusion or significant stenosis. Renal arteries: No occlusion or significant stenosis. Right iliac arteries: No occlusion or significant stenosis. Left iliac arteries: No occlusion or significant stenosis. Liver: No mass. Gallbladder and bile ducts: Gallbladder is absent Pancreas: Unremarkable. No mass. No ductal dilation. Spleen: Unremarkable. No splenomegaly. Adrenal glands: Unremarkable. No mass. Kidneys and ureters: Unremarkable. No solid mass. No hydronephrosis. Stomach and bowel: Unremarkable. No obstruction. No mucosal thickening. Appendix: No evidence of appendicitis. Intraperitoneal space: Unremarkable. No free air. No significant fluid collection. Lymph nodes: Unremarkable. No enlarged lymph nodes. Urinary bladder: Unremarkable. No mass. Reproductive: Unremarkable as visualized. Bones/joints: No acute fracture. Soft tissues: Unremarkable. IMPRESSION: Unremarkable CTA. No acute arterial process THIS DOCUMENT HAS BEEN ELECTRONICALLY SIGNED BY KRUNAL ALLEN MD on 06/22/2022 08:32 PM Final Signed by: Krunal Allen MD Signed (Electronic Signature): 06/22/2022 8:32 pm * Exam Date Time Procedure Performing Provider Status 06/22/22 5:[address] Abdomen and Pelvis w/ Contrast Suzy Sandhu; Albertina (Verified) Notes: (CT Abdomen and Pelvis w/ Contrast) Reason For Exam: abd pain, ?sbo CT Abdomen and Pelvis w/ Contrast PROCEDURE INFORMATION: Exam: CT Abdomen And Pelvis With Contrast Exam date and time: 06/22/2022 5:22 PM Age: 27 years old Clinical indication: Abdominal pain; Generalized; Additional info: Abd pain, ? sbo TECHNIQUE: Imaging protocol: Computed tomography of the abdomen and pelvis with contrast. Radiation optimization: All CT scans at this facility use at least one of these dose optimization techniques: automated exposure control; mA and/or kV adjustment per patient size (includes targeted exams where dose is matched to clinical indication); or iterative reconstruction. Contrast material: ISOVUE 300; Contrast volume: 100 ml; Contrast route: INTRAVENOUS (IV); REPORTING DATA: Count of CT and Cardiac NM exams in prior 12 months: This patient has received [address] and 0 known cardiac nuclear medicine studies in the 12 months prior to the current study. COMPARISON: CT ABD/PELVIS W CONTRAST 03/03/2022 2:33 PM FINDINGS: Liver: Normal. No mass. Gallbladder and bile ducts: Gallbladder is absent Pancreas: Normal. No ductal dilation. Spleen: Normal. No splenomegaly. Adrenal glands: Normal. No mass. Kidneys and ureters: Normal. No hydronephrosis. Stomach and bowel: Unremarkable. No obstruction. No mucosal thickening. Appendix: No evidence of appendicitis. Intraperitoneal space: Unremarkable. No free air. No significant fluid collection. Vasculature: Admixture artifact versus filling defect in proximal superior mesenteric artery, see coronal image 41 series 6. No abdominal aortic aneurysm. Lymph nodes: Unremarkable. No enlarged lymph nodes. Urinary bladder: Unremarkable as visualized. Reproductive: Unremarkable as visualized. Bones/joints: Unremarkable. No acute fracture. Soft tissues: Unremarkable. IMPRESSION: Admixture artifact versus filling defect in proximal superior mesenteric artery. Consider CTA abdomen and pelvis to further assess THIS DOCUMENT HAS BEEN ELECTRONICALLY SIGNED BY KRUNAL ALLEN MD on 06/22/2022 06:22 PM Final Signed by: Krunal Allen MD Signed (Electronic Signature): 06/22/2022 6:22 pm Vital Signs Most recent to oldest [Reference Range]: 1 Temperature Temporal Artery [36-38 Deg C ] 36.0 Deg C (06/22/22 3:39 PM) Peripheral Pulse Rate [60-100 bpm] 88 bp m (06/22/22 3:39 PM) Respiratory Rate [12-24 br/min] 16 br/mi n (06/22/22 3:39 PM) Blood Pressure [90-140/60-90 mmHg] 128/7 6mmHg (06/22/22 3:39 PM) Weight Dosing 104.00 kg (06/22/22 3:59 PM) Weight Estimated 104.00 kg (06/22/22 3:39 PM) Height/Length Dosing 167.000 cm (06/22/22 3:59 PM) Height/Length Estimated 167.000 cm (06/22/22 3:39 PM) Social History Social History Type Response Tobacco Former tobacco user Tobacco Use:. Sex Female Hospital Discharge Instructions Patient Education 06/22/2022 19:44:59 Abdominal Pain, Adult Abdominal Pain, Adult Pain in the abdomen (abdominal pain) can be caused by many things. Often, abdominal pain is not serious and it gets better with no treatment or by being treated at home. However, sometimes abdominal pain is serious. Your health care provider will ask questions about your medical history and do a physical exam to try to determine the cause of your abdominal pain. Follow these instructions at home: Medicines ??? Take fovh-brp-pvirgry and prescription medicines only as told by your health care provider. ??? Do not take a laxative unless told by your health care provider. General instructions ??? Watch your condition for any changes. ??? Drink enough fluid to keep your urine pale yellow. ??? Keep all follow-up visits as told by your health care provider. This is important. Contact a health care provider if: ??? Your abdominal pain changes or gets worse. ??? You are not hungry or you lose weight without trying. ??? You are constipated or have diarrhea for more than 2???3 days. ??? You have pain when you urinate or have a bowel movement. ??? Your abdominal pain wakes you up at night. ??? Your pain gets worse with meals, after eating, or with certain foods. ??? You are vomiting and cannot keep anything down. ??? You have a fever. ??? You have blood in your urine. Get help right away if: ??? Your pain does not go away as soon as your health care provider told you to expect. ??? You cannot stop vomiting. ??? Your pain is only in areas of the abdomen, such as the right side or the left lower portion of the abdomen. Pain on the right side could be caused by appendicitis. ??? You have bloody or black stools, or stools that look like tar. ??? You have severe pain, cramping, or bloating in your abdomen. ??? You have signs of dehydration, such as: ??? Dark urine, very little urine, or no urine. ??? Cracked lips. ??? Dry mouth. ??? Sunken eyes. ??? Sleepiness. ??? Weakness. ??? You have trouble breathing or chest pain. Summary ??? Often, abdominal pain is not serious and it gets better with no treatment or by being treated at home. However, sometimes abdominal pain is serious. ??? Watch your condition for any changes. ??? Take svqj-jlb-smcnzlm and prescription medicines only as told by your health care provider. ??? Contact a health care provider if your abdominal pain changes or gets worse. ??? Get help right away if you have severe pain, cramping, or bloating in your abdomen. This information is not intended to replace advice given to you by your health care provider. Make sure you discuss any questions you have with your health care provider. Document Revised: 06/06/2020 Document Reviewed: 08/27/2019 [employer] Patient Education ?? 2021 [employer]. Follow Up Care 06/22/2022 15:39:39 With:Sharon Weeks MD Address: [address] [place] [address] When:1 week With:Buster Andrade Address: [place] [address]- When:5 to 7 days Discharge instructions * Event Display: Discharge Instructions Physician Emergency department Note * Harsha Alcantara MD: PERFORM Event Display: ED Note Physician Authored Date: [id number] LLOYD VIVAS :1995 Age:27 years Sex:Female Visit Date:06/22/2022 Primary Care Physician: Buster Andrade Basic Information Time Seen: Harsha Alcantara MD / 06/22/2022 15:51 Chief Complaint patient presents with report of hernia pain that has been getting worse. patient is scheduled for surgery on 07/07. Dr. Weeks had her see PCP who told her to come to ED. took tylenol at 1400 with no relief. History Of Present Illness: 27-year-old female with past medical history significant??for Hayden-en-Y gastric bypass??presents the ER complaining of abdominal pain. ??The patient was recently seen by Dr. Weeks in the office for concern of incisional hernia.?? Apparently plans are being made for??surgical exploration and repair.?? The patient states she has had pain for the past several weeks but the pain became worse today. ??She called her??water server and was sent here for evaluation.?? Patient complains of central pain around her umbilicus area. ??She has had nausea but no vomiting. ??No bowel movements today. ??No fevers or urinary symptoms.?? She cannot feel a specific lump in her abdomen. Review of Systems: CONSTITUTIONAL:??No fevers or chills. EYES:??No change in vision. ENT:??No sore throat. ??No headache. ??No neck pain. CARDIOVASCULAR:??No chest pain, palpitations or passing out episodes. RESPIRATORY:??No cough, shortness of breath or hemoptysis. :??No change in urination. SKIN:??No rash. NEUROLOGIC:??No focal numbness or weakness. LYMPH:??No swelling. ?? Review of systems otherwise as stated in HPI ?? Physical Exam Vitals & Measurements T:??36.0?C ??(Temporal Artery)?? HR:??88??(Peripheral)?? RR:??16?? BP:??128/76?? SpO2:??99%?? HT:??167.000??cm?? WT:??104.00??kg??(Estimated)?? Pain Score:??8?? O2 Therapy:??Room air?? GENERAL:??Awake and alert. ??Moderate discomfort. HEENT:??Normocephalic, atraumatic. ??Mucous membranes are moist. HEART:??Regular rate and rhythm. ??S1 and S2. LUNGS:??Clear to auscultation bilaterally. ??No respiratory distress. ABDOMEN:??Obese, soft, well-healed surgical scar.?? Moderate periumbilical tenderness. ??No palpable hernia sac. ??No guarding or rebound. NEUROLOGIC:??Awake, alert, and oriented x3. ??Motor and sensory grossly intact. SKIN:??Warm and dry. VASCULAR:??Radial 2+ bilaterally. Medical Decision Making: Abdominal pain. ??The patient is afebrile nontoxic-appearing with a nonperitoneal abdominal exam.??Laboratory studies were obtained which are overall unremarkable including normal white blood cell count, LFTs, lipase.?? Urinalysis is negative for pyuria or hematuria and she is not .?? The p esteban was recently seen by Dr. Weeks in the office and consultation was obtained??from her and shewas able to see the patient here in the ER. ??She recommended CT for??further evaluation. ??InitialCT with IV contrast showed questionable filling defect within the SMA and CTA was??recommended.?? CTA was obtained which is negative for??acute pathology. ??The patient was treated symptomatically with IV fluids, Zofran, Toradol, GI cocktail,??Protonix.?? She has had no further vomiting here and pain is manageable.?? She was felt to be safe for discharge home. ??No evidence for definite acute pathology. ??I will give her 2 weeks of omeprazole??with instructions for??advance diet as tolerated. ??Zofran prescription and to go, instructions for keep hydrated, follow-up with primary care and surgery in the office, return if worse. Procedure No Qualifying Data Assessment/Plan 1.??Abdominal pain??R10.9 Orders: Al hydroxide/Mg hydroxide/simethicone, 30 mL, Oral, Susp, Once, First Dose: 06/22/22 21:00:00 EST, Stop Date: 06/22/22 21:00:00 EST, Physician Stop Lidocaine Viscous, 15 mL, Oral, Soln, Once, First Dose: 06/22/22 21:00:00 EST, Stop Date: 06/22/22 21:00:00 EST, Physician Stop omeprazole 20 mg oral delayed release capsule, 20 mg = 1 cap, Oral, Daily, # 14 cap, 0 Refill(s), Pharmacy: [facility] #[id number], 167, cm, 06/22/22 15:59:00 EST, Height/Length Dosing, 104, kg,06/22/22 15:59:00 EST, Weight Dosing ondansetron 4 mg oral tablet, disintegrating, 4 mg = 1 tab, Oral, TID, # 10 tab, 0 Refill(s), Pharmacy: [facility] #[id number], 167, cm, 06/22/22 15:59:00 EST, Height/Length Dosing, 104, kg, 06/22/22 15:59:00 EST, Weight Dosing !-Zofran, 4 mg = 1 tab, Oral, Tab-Dis, every 6 hr for 2 doses, PRN nausea/vomiting, First Dose: 06/22/22 20:44:00 EST, Stop Date: Limited # of times, Physician Stop Protonix, 80 mg = 2 EA, IV Push, Vial, Once, First Dose: 06/22/22 20:27:00 EST, Stop Date: 06/22/2319:27:00 EST, Physician Stop Discharge Patient, 06/22/22 20:45:00 EST Patient Education Abdominal Pain, Adult Follow Up With When Contact Information Sharon Weeks MD Within 1 week [address] [place] [address] Additional Instructions: Buster Andrade Within 5 to 7 days [address] [place] [address]- Additional Instructions: Medication Reconciliation New Prescription omeprazole (omeprazole 20 mg oral delayed release capsule)1 Capsules Oral (given by mouth) every day. Refills: 0. ?? ondansetron (ondansetron 4 mg oral tablet, disintegrating)1 tab Oral (given by mouth) 3 times a day. Refills: 0. ?? Unchanged acetaminophen (Tylenol 325 mg oral capsule)1 Unknown. ?? calcium citrate2 Unknown. ?? cyanocobalamin (Vitamin B12) ?? ergocalciferol (Vitamin D2 1.25 mg (50,000 intl units) oral capsule) ?? multivitamin (multivitamin adult, oral tablet)1 Unknown. ?? norethindrone (norethindrone 5 mg oral tablet)1 tab Oral (given by mouth) every day. Problem List/Past Medical History Ongoing Abdominal wall fluid collections Abnormal uterine bleeding Anxiety Calculus of kidney Intra-abdominal collection Kidney stone Mixed anxiety and depressive disorder Historical Amenorrhea Procedure/Surgical History ? ?Hysteroscopy with D&C (07/14/2021)? ?Gastric bypass (09/2020)? ?EGD (esophagogastroduodenoscopy) gastric outlet reduction (10/05/2019)???Dilation and curettage (07/27/2018)???Delayed closure of abdominal wall (04/05/2018)???Exploratroy and explantation of abdominal mesh (03/29/2018)???Wound opened up (01/26/2018)???open hernia repair (05/2017)???Cholecystectomy (2016)???excison of seroma (04/14/2011)???Extraction of wisdom tooth???Open repair of incisional hernia Medication Administration Given Sodium Chloride 0.9%, 1000 mL, IV Bolus ondansetron, 4 mg, IV Push Toradol, 30 mg, IV Push Allergies Tylenol with Codeine #3??(Unknown) Vicodin??(Unknown) Social History Alcohol Never Electronic Cigarette/Vaping Electronic Cigarette Use: Never. 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 Home/Environment Lives with Children, Significant other. Living situation: Home/Independent. Tobacco Former tobacco user Tobacco Use:. Diagnostic Results CT Abdomen and Pelvis w/ Contrast 06/22/2022 18:[address] Angio Abdomen and Pelvis 06/22/2022 20:[address] Abdomen and Pelvis w/ Contrast ?? 06/22/22 17:22:17 PROCEDURE INFORMATION: Exam: CT Abdomen And Pelvis With Contrast Exam date and time: 06/22/2022 5:22 PM Age: 27 years old Clinical indication: Abdominal pain; Generalized; Additional info: Abd pain, ? sbo ?? TECHNIQUE: Imaging protocol: Computed tomography of the abdomen and pelvis with contrast. Radiation optimization: All CT scans at this facility use at least one of these dose optimization techniques: automated exposure control; mA and/or kV adjustment per patient size (includes targeted exams where dose is matched to clinical indication); or iterative reconstruction. Contrast material: ISOVUE 300; Contrast volume: 100 ml; Contrast route: INTRAVENOUS (IV); ?? REPORTING DATA: Count of CT and Cardiac NM exams in prior 12 months: This patient has received [address] and 0 known cardiac nuclear medicine studies in the 12 months prior to the current study. ?? COMPARISON: CT ABD/PELVIS W CONTRAST 03/03/2022 2:33 PM ?? FINDINGS: Liver: Normal. No mass. Gallbladder and bile ducts: Gallbladder is absent Pancreas: Normal. No ductal dilation. Spleen: Normal. No splenomegaly. Adrenal glands: Normal. No mass. Kidneys and ureters: Normal. No hydronephrosis. Stomach and bowel: Unremarkable. No obstruction. No mucosal thickening. Appendix: No evidence of appendicitis. ?? Intraperitoneal space: Unremarkable. No free air. No significant fluid collection. Vasculature: Admixture artifact versus filling defect in proximal superior mesenteric artery, see coronal image 41 series 6. No abdominal aortic aneurysm. Lymph nodes: Unremarkable. No enlarged lymph nodes. Urinary bladder: Unremarkable as visualized. Reproductive: Unremarkable as visualized. Bones/joints: Unremarkable. No acute fracture. Soft tissues: Unremarkable. ?? IMPRESSION: Admixture artifact versus filling defect in proximal superior mesenteric artery. Consider CTA abdomen and pelvis to further assess ? THIS DOCUMENT HAS BEEN ELECTRONICALLY SIGNED BY KRUNAL ALLEN MD on 06/22/2022 06:22 PM ?? Signed By: Krunal Allen MD ?? CT Angio Abdomen and Pelvis ?? 06/22/22 20:18:19 PROCEDURE INFORMATION: Exam: CTA Abdomen and Pelvis With Contrast Exam date and time: 06/22/2022 8:18 PM Age: 27 years old Clinical indication: Abdominal pain; Generalized; Additional info: Abdominal pain, question sma thrombus on CT today ?? TECHNIQUE: Imaging protocol: Computed tomographic angiography of the abdomen and pelvis with contrast. 3D rendering (Not supervised by radiologist): MIP and/or 3D reconstructed images were created by the technologist. Radiation optimization: All CT scans at this facility use at least one of these dose optimization techniques: automated exposure control; mA and/or kV adjustment per patient size (includes targeted exams where dose is matched to clinical indication); or iterative reconstruction. Contrast material: [id number]; Contrast volume: 100 ml; Contrast route: INTRAVENOUS (IV); ?? REPORTING DATA: Count of CT and Cardiac NM exams in prior 12 months: This patient has received 2 known CTs and 0 known cardiac nuclear medicine studies in the 12 months prior to the current study. ?? COMPARISON: CT ABD/PELVIS W CONTRAST 06/22/2022 5:22 PM ?? FINDINGS: Aorta: No aortic aneurysm. No aortic dissection. Celiac trunk and mesenteric arteries: No occlusion or significant stenosis. Renal arteries: No occlusion or significant stenosis. Right iliac arteries: No occlusion or significant stenosis. Left iliac arteries: No occlusion or significant stenosis. ?? Liver: No mass. Gallbladder and bile ducts: Gallbladder is absent Pancreas: Unremarkable. No mass. No ductal dilation. Spleen: Unremarkable. No splenomegaly. Adrenal glands: Unremarkable. No mass. Kidneys and ureters: Unremarkable. No solid mass. No hydronephrosis. Stomach and bowel: Unremarkable. No obstruction. No mucosal thickening. Appendix: No evidence of appendicitis. Intraperitoneal space: Unremarkable. No free air. No significant fluid collection. Lymph nodes: Unremarkable. No enlarged lymph nodes. ?? Urinary bladder: Unremarkable. No mass. Reproductive: Unremarkable as visualized. Bones/joints: No acute fracture. Soft tissues: Unremarkable. ?? IMPRESSION: Unremarkable CTA. ?? No acute arterial process ? THIS DOCUMENT HAS BEEN ELECTRONICALLY SIGNED BY KRUNAL ALLEN MD on 06/22/2022 08:32 PM ?? Signed By: Krunal Allen MD Lab Results CBC and Differential?? LATEST RESULTS?? HISTORICAL RESULTS?? WBC?? 06/22/22 16:06?? 5.5?? 03/03/22?? 5.7?? RBC?? 06/22/22 16:06?? 4.04 ??Low?? 03/03/22?? 4.23?? Hgb?? 06/22/22 16:06?? 12.0?? 03/03/22?? 12.4?? Hct?? 06/22/22 16:06?? 37.0?? 03/03/22?? 37.9?? MCV?? 06/22/22 16:06?? 91.6?? 03/03/22?? 89.6?? MCH?? 06/22/22 16:06?? 29.7?? 03/03/22?? 29.3?? MCHC?? 06/22/22 16:06?? 32.4?? 03/03/22?? 32.7?? RDW-CV?? 06/22/22 16:06?? 13.2?? 03/03/22?? 14.0?? Platelets?? 06/22/22 16:06?? 190?? 03/03/22?? 198?? MPV?? 06/22/22 16:06?? 8.9?? 03/03/22?? 9.0?? Neutro Auto?? 06/22/22 16:06?? 50.3?? 03/03/22?? 50.0?? Lymph Auto?? 06/22/22 16:06?? 42.9?? 03/03/22?? 41.1?? [place] Auto?? 06/22/22 16:06?? 5.2?? 03/03/22?? 6.8?? Eos, Auto?? 06/22/22 16:06?? 0.90?? 03/03/22?? 1.40?? Basophil Auto?? 06/22/22 16:06?? 0.5?? 03/03/22?? 0.7 ??High?? Imm Gran Auto?? 06/22/22 16:06?? 0.2?? 03/03/22?? 0.0?? Neutro Absolute?? 06/22/22 16:06?? 2.8?? 03/03/22?? 2.9?? Lymph Absolute?? 06/22/22 16:06?? 2.4?? 03/03/22?? 2.4?? [place] Absolute?? 06/22/22 16:06?? 0.3?? 03/03/22?? 0.4?? Eos Absolute?? 06/22/22 16:06?? 0.0?? 03/03/22?? 0.1?? Baso Absolute?? 06/22/22 16:06?? 0.0?? 03/03/22?? 0.0?? Imm Gran Absolute?? 06/22/22 16:06?? 0.01?? 03/03/22?? 0.00? Routine Chemistry?? LATEST RESULTS?? HISTORICAL RESULTS?? Sodium Level?? 06/22/22 16:06?? 135?? 03/03/22?? 136?? Potassium Level?? 06/22/22 16:06?? 3.7?? 03/03/22?? 4.0?? Chloride Level?? 06/22/22 16:06?? 103?? 03/03/22?? 105?? CO2?? 06/22/22 16:06?? 23?? 03/03/22?? 23?? Alk Phos?? 06/22/22 16:06?? 56?? 03/03/22?? 60?? AST?? 06/22/22 16:06?? 13 ??Low?? 03/03/22?? 18?? ALT?? 06/22/22 16:06?? 10 ??Low?? 03/03/22?? 11 ??Low?? BUN?? 06/22/22 16:06?? 17?? 03/03/22?? 17?? Glucose Level?? 06/22/22 16:06?? 104?? 03/03/22?? 114 ??High?? Creatinine Level?? 06/22/22 16:06?? 0.57?? 03/03/22?? 0.65?? BUN/Creat Ratio?? 06/22/22 16:06?? 29.8 ??High?? 03/03/22?? 26.2 ??High?? Calcium Level?? 06/22/22 16:06?? 9.0?? 03/03/22?? 8.7 ??Low?? Protein Total?? 06/22/22 16:06?? 6.8?? 03/03/22?? 6.6?? Albumin Level?? 06/22/22 16:06?? 4.1?? 03/03/22?? 4.0?? Globulin?? 06/22/22 16:06?? 2.7?? 03/03/22?? 2.6?? A/G Ratio?? 06/22/22 16:06?? 1.5?? 03/03/22?? 1.5?? Bilirubin Total?? 06/22/22 16:06?? 0.8?? 03/03/22?? 0.9?? Anion Gap?? 06/22/22 16:06?? 9.0?? 03/03/22?? 8.0?? Lactic Acid Lvl?? 06/22/22 19:45?? 0.6? Lipase Level?? 06/22/22 16:06?? 49? Osmolality?? 06/22/22 16:06?? 272 ??Low?? 03/03/22?? 274 ??Low?? eGFR CKD-EPI?? 06/22/22 16:06?? 129? Testing?? LATEST RESULTS?? U hCG Ql?? 06/22/22 16:05?? Negative? UA Macroscopic?? LATEST RESULTS?? HISTORICAL RESULTS?? Urine Srce?? 06/22/22 16:05?? Clean Catch?? 03/03/22?? Clean Catch?? UA Color?? 06/22/22 16:05?? LIGHT YELL?? 03/03/22?? Yellow?? UA Appear?? 06/22/22 16:05?? Clear?? 03/03/22?? Slightly Cloudy Abnormal?? UA Glucose?? 06/22/22 16:05?? Negative?? 03/03/22?? Negative?? UA Bili?? 06/22/22 16:05?? Negative?? 03/03/22?? Small Abnormal?? UA Ketones?? 06/22/22 16:05?? Negative?? 03/03/22?? Trace Abnormal?? UA Spec Grav?? 06/22/22 16:05?? <=1.005?? 03/03/22?? >=1.030?? UA Blood?? 06/22/22 16:05?? Trace Abnormal?? 03/03/22?? Large Abnormal?? UA pH?? 06/22/22 16:05?? 6.00?? 03/03/22?? 5.00?? UA Protein?? 06/22/22 16:05?? Negative?? 03/03/22?? Negative?? UA Urobilinogen?? 06/22/22 16:05?? 0.2?? 03/03/22?? 0.2?? UA Nitrite?? 06/22/22 16:05?? Negative?? 03/03/22?? Negative?? UA Leuk Est?? 06/22/22 16:05?? Negative?? 03/03/22?? Negative?? UA Culture Ind?.?? 06/22/22 16:05?? No?? 03/03/22?? No? UA Microscopic?? LATEST RESULTS?? HISTORICAL RESULTS?? UA WBC?? 06/22/22 16:05?? 0-3?? 03/03/22?? 6-10 Abnormal?? UA RBC?? 06/22/22 16:05?? 0-3?? 03/03/22?? 50-99 Abnormal?? UA Squam Epithelial?? 06/22/22 16:05?? 0-3?? 03/03/22?? 6-10 Abnormal?? UA Bacteria?? 06/22/22 16:05?? 1+ Abnormal?? 03/03/22?? None Seen? Electronically Signed on 06/22/22 08:47 PM Harsha Alcantara MD Emergency department Discharge instructions * Harsha Alcantara MD: PERFORM Event Display: ED Discharge Information Authored Date: [id number] LLOYD VIVAS :1995 Age:27 years Sex:Female Visit Date:06/22/2022 Primary Care Physician: Buster Andrade Discharge Instructions We would like to thank you for allowing us to assist you with your healthcare needs. The following includes patient education materials and information regarding your injury/illness. Diagnosis from Today's Visit Abdominal pain Discharge Vitals Temperature??(Temporal Artery) 96.8 ??F (36.0 ??C) Heart Rate??(Peripheral) 88 Respiratory Rate?? 16 Blood Pressure?? 128/76?? Height?? 65.75 in (167.000 cm) Weight??(Estimated) 229.32 lb (104.00 kg) Allergies Tylenol with Codeine #3??(Unknown) Vicodin??(Unknown) What to Do Next You Need to Schedule the Following Appointments Follow Up with??Sharon Weeks MD When:??Within 1 week Where: [address] [place] [address] Follow Up with??Buster Andrade When:??Within 5 to 7 days Where: [address] [place] [address]- Upcoming Scheduled Appointments Tuesday 7:30 AM EST ?? You were treated today on an emergency basis; it may be tafoya to contact your primary care provider to notify them of your visit today. You may have been referred to your regular doctor or a specialist, please follow up as instructed. If your condition worsens or you can't get in to see the doctor, contact the Emergency Department. Medications What How Much When Instructions Next Dose New omeprazole (omeprazole 20 mg oral delayed release capsule) 1 Capsules Oral (given by mouth) Every day Pickup at [facility] #[id number] New ondansetron (ondansetron 4 mg oral tablet, disintegrating) 1 tab Oral (given by mouth) 3 times a [id number] Unchanged acetaminophen (Tylenol 325 mg oral capsule) 1 Unknown ?? Unchanged calcium citrate 2 Unknown ?? Unchanged cyanocobalamin (Vitamin B12) Unchanged ergocalciferol (Vitamin D2 1.25 mg (50,000 intl units) oral capsule) Unchanged multivitamin (multivitamin adult, oral tablet) 1 Unknown ?? Unchanged norethindrone (norethindrone 5 mg oral tablet) 1 tab Oral (given by mouth) Every day Contact prescribing physician if questions or concerns ?? Pharmacy Information [facility] #[id number]: [address], [place] [id number] [phone] Education Materials Abdominal Pain, Adult Pain in the abdomen (abdominal pain) can be caused by many things. Often, abdominal pain is not serious and it gets better with no treatment or by being treated at home. However, sometimes abdominal pain is serious. Your health care provider will ask questions about your medical history and do a physical exam to try to determine the cause of your abdominal pain. Follow these instructions at home: Medicines ? Take [id number] and prescription medicines only as told by your health care provider. ? Do not take a laxative unless told by your health care provider. General instructions ? Watch your condition for any changes. ? Drink enough fluid to keep your urine pale yellow. ? Keep all follow-up visits as told by your health care provider. This is important. Contact a health care provider if: ? Your abdominal pain changes or gets worse. ? You are not hungry or you lose weight without trying. ? You are constipated or have diarrhea for more than 2???3 days. ? You have pain when you urinate or have a bowel movement. ? Your abdominal pain wakes you up at night. ? Your pain gets worse with meals, after eating, or with certain foods. ? You are vomiting and cannot keep anything down. ? You have a fever. ? You have blood in your urine. Get help right away if: ? Your pain does not go away as soon as your health care provider told you to expect. ? You cannot stop vomiting. ? Your pain is only in areas of the abdomen, such as the right side or the left lower portion of the abdomen. Pain on the right side could be caused by appendicitis. ? You have bloody or black stools, or stools that look like tar. ? You have severe pain, cramping, or bloating in your abdomen. ? You have signs of dehydration, such as: ? Dark urine, very little urine, or no urine. ? Cracked lips. ? Dry mouth. ? Sunken eyes. ? Sleepiness. ? Weakness. ? You have trouble breathing or chest pain. Summary ? Often, abdominal pain is not serious and it gets better with no treatment or by being treated at home. However, sometimes abdominal pain is serious. ? Watch your condition for any changes. ? Take lzka-wxp-eanjcub and prescription medicines only as told by your health care provider. ? Contact a health care provider if your abdominal pain changes or gets worse. ? Get help right away if you have severe pain, cramping, or bloating in your abdomen. This information is not intended to replace advice given to you by your health care provider. Make sure you discuss any questions you have with your health care provider. Document Revised: 06/06/2020 Document Reviewed: 08/27/2019 [employer] Patient Education ?? 2021 [employer] Tests Performed Radiology CT Abdomen and Pelvis w/ Contrast 06/22/2022 18:[address] Angio Abdomen and Pelvis 06/22/2022 20:32 EST Medications and Immunizations Administered Given Sodium Chloride 0.9%, 1000 mL, IV Bolus ondansetron, 4 mg, IV Push Toradol, 30 mg, IV Push Lab Test Name Test Result Date/Time WBC 5.5 K/mcL 06/22/2022 16:06 EST RBC 4.04 Million/mcL 06/22/2022 16:06 EST Hgb 12.0 g/dL 06/22/2022 16:06 EST Hct 37.0 % 06/22/2022 16:06 EST MCV 91.6 fL 06/22/2022 16:06 EST MCH 29.7 pg 06/22/2022 16:06 EST MCHC 32.4 g/dL 06/22/2022 16:06 EST RDW-CV 13.2 % 06/22/2022 16:06 EST Platelets 190 K/mcL 06/22/2022 16:06 EST MPV 8.9 fL 06/22/2022 16:06 EST Neutro Auto 50.3 % 06/22/2022 16:06 EST Lymph Auto 42.9 % 06/22/2022 16:06 EST [place] Auto 5.2 % 06/22/2022 16:06 EST Eos, Auto 0.90 % 06/22/2022 16:06 EST Basophil Auto 0.5 % 06/22/2022 16:06 EST Imm Gran Auto 0.2 % 06/22/2022 16:06 EST Neutro Absolute 2.8 K/mcL 06/22/2022 16:06 EST Lymph Absolute 2.4 K/mcL 06/22/2022 16:06 EST [place] Absolute 0.3 K/mcL 06/22/2022 16:06 EST Eos Absolute 0.0 K/mcL 06/22/2022 16:06 EST Baso Absolute 0.0 K/mcL 06/22/2022 16:06 EST Imm Gran Absolute 0.01 06/22/2022 16:06 EST Sodium Level 135 mmol/L 06/22/2022 16:06 EST Potassium Level 3.7 mmol/L 06/22/2022 16:06 EST Chloride Level 103 mmol/L 06/22/2022 16:06 EST CO2 23 mmol/L 06/22/2022 16:06 EST Alk Phos 56 IntlUnit/L 06/22/2022 16:06 EST AST 13 IntlUnit/L 06/22/2022 16:06 EST ALT 10 IntlUnit/L 06/22/2022 16:06 EST BUN 17 mg/dL 06/22/2022 16:06 EST Glucose Level 104 mg/dL 06/22/2022 16:06 EST Creatinine Level 0.57 mg/dL 06/22/2022 16:06 EST BUN/Creat Ratio 29.8 06/22/2022 16:06 EST Calcium Level 9.0 mg/dL 06/22/2022 16:06 EST Protein Total 6.8 g/dL 06/22/2022 16:06 EST Albumin Level 4.1 g/dL 06/22/2022 16:06 EST Globulin 2.7 06/22/2022 16:06 EST A/G Ratio 1.5 06/22/2022 16:06 EST Bilirubin Total 0.8 mg/dL 06/22/2022 16:06 EST Anion Gap 9.0 06/22/2022 16:06 EST Lactic Acid Lvl 0.6 mmol/L 06/22/2022 19:45 EST Lipase Level 49 unit/L 06/22/2022 16:06 EST Osmolality 272 mOsm/kg 06/22/2022 16:06 EST eGFR CKD-EPI 129 mL/min/1.73 m2 06/22/2022 16:06 EST U hCG Ql Negative 06/22/2022 16:05 EST Urine Srce Clean Catch 06/22/2022 16:05 EST UA Color LIGHT YELL 06/22/2022 16:05 EST UA Appear CLEAR. 06/22/2022 16:05 EST UA Glucose NEGATIVE 06/22/2022 16:05 EST UA Bili NEGATIVE 06/22/2022 16:05 EST UA Ketones NEGATIVE 06/22/2022 16:05 EST UA Spec Grav <=1.005 06/22/2022 16:05 EST UA Blood TRACE 06/22/2022 16:05 EST UA pH 6.00 06/22/2022 16:05 EST UA Protein NEGATIVE 06/22/2022 16:05 EST UA Urobilinogen 0.2 06/22/2022 16:05 EST UA Nitrite NEGATIVE 06/22/2022 16:05 EST UA Leuk Est NEGATIVE 06/22/2022 16:05 EST UA Culture Ind?. No 06/22/2022 16:05 EST UA WBC 0-3 06/22/2022 16:05 EST UA RBC 0-3 06/22/2022 16:05 EST UA Squam Epithelial 0-3 06/22/2022 16:05 EST UA Bacteria 1+ 06/22/2022 16:05 EST Patient/Truck Shop Supervisor Signature Patient Name:LLOYD VIVAS I have received this information and my questions have been answered. Patient/Truck Shop Supervisor Name: Patient/Truck Shop Supervisor Signature: Relationship to Patient: Witness Name/Signature: Date: Electronically Signed on: 06/22/2022 20:45 ESTSigned by: CT Abdomen and Pelvis W contrast IV * Krunal Allen MD: VERIFY, VERIFY Event Display: Report PROCEDURE INFORMATION: Exam: CT Abdomen And Pelvis With Contrast Exam date and time: 06/22/2022 5:22 PM Age: 27 years old Clinical indication: Abdominal pain; Generalized; Additional info: Abd pain, ? sbo TECHNIQUE: Imaging protocol: Computed tomography of the abdomen and pelvis with contrast. Radiation optimization: All CT scans at this facility use at least one of these dose optimization techniques: automated exposure control; mA and/or kV adjustment per patient size (includes targeted exams where dose is matched to clinical indication); or iterative reconstruction. Contrast material: ISOVUE 300; Contrast volume: 100 ml; Contrast route: INTRAVENOUS (IV); REPORTING DATA: Count of CT and Cardiac NM exams in prior 12 months: This patient has received [address] and 0 known cardiac nuclear medicine studies in the 12 months prior to the current study. COMPARISON: CT ABD/PELVIS W CONTRAST 03/03/2022 2:33 PM FINDINGS: Liver: Normal. No mass. Gallbladder and bile ducts: Gallbladder is absent Pancreas: Normal. No ductal dilation. Spleen: Normal. No splenomegaly. Adrenal glands: Normal. No mass. Kidneys and ureters: Normal. No hydronephrosis. Stomach and bowel: Unremarkable. No obstruction. No mucosal thickening. Appendix: No evidence of appendicitis. Intraperitoneal space: Unremarkable. No free air. No significant fluid collection. Vasculature: Admixture artifact versus filling defect in proximal superior mesenteric artery, see coronal image 41 series 6. No abdominal aortic aneurysm. Lymph nodes: Unremarkable. No enlarged lymph nodes. Urinary bladder: Unremarkable as visualized. Reproductive: Unremarkable as visualized. Bones/joints: Unremarkable. No acute fracture. Soft tissues: Unremarkable. IMPRESSION: Admixture artifact versus filling defect in proximal superior mesenteric artery. Consider CTA abdomen and pelvis to further assess THIS DOCUMENT HAS BEEN ELECTRONICALLY SIGNED BY KRUNAL ALLEN MD on 06/22/2022 06:22 PM Final Signed by: Krunal Allen MD Signed (Electronic Signature): 06/22/2022 6:22 pm CTA Abdominal vessels and Pelvis vessels W contrast IV * Krunal Allen MD: VERIFY, VERIFY Event Display: Report PROCEDURE INFORMATION: Exam: CTA Abdomen and Pelvis With Contrast Exam date and time: 06/22/2022 8:18 PM Age: 27 years old Clinical indication: Abdominal pain; Generalized; Additional info: Abdominal pain, question sma thrombus on CT today TECHNIQUE: Imaging protocol: Computed tomographic angiography of the abdomen and pelvis with contrast. 3D rendering (Not supervised by radiologist): MIP and/or 3D reconstructed images were created by the technologist. Radiation optimization: All CT scans at this facility use at least one of these dose optimization techniques: automated exposure control; mA and/or kV adjustment per patient size (includes targeted exams where dose is matched to clinical indication); or iterative reconstruction. Contrast material: [id number]; Contrast volume: 100 ml; Contrast route: INTRAVENOUS (IV); REPORTING DATA: Count of CT and Cardiac NM exams in prior 12 months: This patient has received 2 known CTs and 0 known cardiac nuclear medicine studies in the 12 months prior to the current study. COMPARISON: CT ABD/PELVIS W CONTRAST 06/22/2022 5:22 PM FINDINGS: Aorta: No aortic aneurysm. No aortic dissection. Celiac trunk and mesenteric arteries: No occlusion or significant stenosis. Renal arteries: No occlusion or significant stenosis. Right iliac arteries: No occlusion or significant stenosis. Left iliac arteries: No occlusion or significant stenosis. Liver: No mass. Gallbladder and bile ducts: Gallbladder is absent Pancreas: Unremarkable. No mass. No ductal dilation. Spleen: Unremarkable. No splenomegaly. Adrenal glands: Unremarkable. No mass. Kidneys and ureters: Unremarkable. No solid mass. No hydronephrosis. Stomach and bowel: Unremarkable. No obstruction. No mucosal thickening. Appendix: No evidence of appendicitis. Intraperitoneal space: Unremarkable. No free air. No significant fluid collection. Lymph nodes: Unremarkable. No enlarged lymph nodes. Urinary bladder: Unremarkable. No mass. Reproductive: Unremarkable as visualized. Bones/joints: No acute fracture. Soft tissues: Unremarkable. IMPRESSION: Unremarkable CTA. No acute arterial process THIS DOCUMENT HAS BEEN ELECTRONICALLY SIGNED BY KRUNAL ALLEN MD on 06/22/2022 08:32 PM Final Signed by: Krunal Allen MD Signed (Electronic Signature): 06/22/2022 8:32 pm Patient Care team information Care Team Personnel Name: Pierre Pineda MD, FACOG Position: Physician - Women's Health Member Role: LOG COOKER Physician Address: Address: [address] [place] [id number] Name: Buster Andrade Position: No Access Member Role: Primary Care Physician Address: Address: [address] [place] [id number] Name: Harsha Alcantara MD Position: Physician Member Role: ED Physician Address: Address: [address] [place] [id number] Name: Joss Parker Position: Nurse Member Role: ED Nurse Name: Jenni Davis RN Position: Perioperative - Nurse Member Role: ED Nurse Care Team Related Persons Name: MARTIN VIVAS Address: Home Name: ELY VIVAS Address: Home [address] [place] [id number]
--- OUTSIDE RECORDS SUMMARY | 2023-02-25 09:36 | XMS_ITS | Continuity of Care Document ---
Author Name Unknown Organization [facility] Ambulatory Clinics Address [address] [place] [address] Care Team Providers Care Manufacturing Machine Operator Name Role Phone Unavailable, Physician Primary Care Physician Un available Encounter [facility] NBR [id number] Date(s): 06/17/22 - 06/17/22 [facility] Ambulatory [facility] [address] [place] [address]- [place] Encounter Diagnosis Incisional hernia(Discharge Diagnosis) - 06/17/22 Discharge Disposition: Home or Self Care Attending Physician: Sharon Weeks MD Allergies, Adverse Reactions, Alerts Substance Reaction Severity Status Vicodin Unknown Unknown Active Tylenol with Codeine #3 Unknown Unknown Acti ve Assessment and Plan Future Appointments Functional Status 06/17/22 Living Environment Home Environment No qualifying data available Recent Travel History No recent travel Other [...] 0 Refill(s) Start Date: 03/03/22 Status: Suspended Tylenol 325 mg oral capsule 1 Unknown, [...] open hernia repair 05/2017 Comple fadia Cholecystectomy 2015 Completed excison of seroma 04/13/11 Complet ed Extraction of wisdom tooth Completed Open repair of incisional hernia 3 Completed 1Delayed primary closure of abdominal wound 2and cleaned Vital Signs Most recent to oldest [Reference Range]: 1 Temperature Temporal Artery [36-38 Deg C ] 35.7 Deg C *LOW* (06/17/22 8:38 AM) Apical Heart Rate [60-100 bpm] 83 bpm (06/17/22 8:38 AM) Blood Pressure [90-140/60-90 mmHg] 108/8 0mmHg (06/17/22 8:38 AM) Weight 110.4 kg (06/17/22 8:38 AM) Weight Measured (lbs) 243.39 lb (06/17/22 8:38 AM) [place] Body Weight Calculated 59.3 kg (06/17/22 8:38 AM) Height 167.64 cm (06/17/22 8:38 AM) Height/Length Measured (inches) 66 inch (06/17/22 8:38 AM) BSA Measured 2.27 m2 (06/17/22 8:38 AM) Body Mass Index 39.28 kg/m2 (06/17/22 8:38 AM) Social History Social History Type Response Tobacco Former tobacco user Tobacco Use:. Sex Female Patient Care team information Care Team Personnel Name: Pierre Pineda MD, FACOG Position: Physician - Women's Health Member Role: SIGN PAINTER HELPER Physician Address: Address: [address] [place] [phone] [place] Name: Unavailable, Physician Position: No Access Member Role: Primary Care Physician Care Team Related Persons Name: MARTIN VIVAS Address: Home Name: ELY VIVAS Address: Home [address] [place] [id number]
--- OUTSIDE RECORDS SUMMARY | 2023-02-25 09:36 | XMS_ITS | Continuity of Care Document ---
Author Name Unknown Organization [facility] Address [address] [place] [id number] Care Team Providers Care Occupational Therapy Program Director Name Role Phone Buster Andrade Primary Care Physician Encounter [facility]_[place] FIN NBR [id number] Date(s): 06/25/22 - 06/25/[address] [id number]- Discharge Disposition: Home or Self Care Attending Physician: Sharon Weeks MD Admitting Physician: Sharon Weeks MD Allergies, Adverse Reactions, Alerts Substance Reaction Severity Status Vicodin Nausea Mild Active Tylenol with Codeine #3 Nausea Mild Acti ve Assessment and Plan Future Appointments Diagnostic Tests Pending * Urine Qual POCT 06/25/22 Functional Status 06/25/22 Anti-Embolism Device Activity: Applied Anti-Embolism Site Condition: No complic ations 06/25/22 Family Member Travel History No recent t [...] List Condition Confirmation Course Effective Dates Status H ealth Status Informant Abnormal uterine bleeding Confirmed Active Anxiety Confirmed Active History of COVID-19 1 Confirmed 08/30/21 Active History of methicillin resistant Staphylococcus aureus infection Confirmed Active Abdominal wall fluid collections Confirmed Active Intra-abdominal collection Confirmed Active Calculus of kidney Confirmed Active Kidney stone Confirmed Active Mixed anxiety and depressive disorder Confirmed Active PONV - Postoperative nausea and vomiting Confirmed Active Recurrent UTI - urinary tract infection Confirmed Active 1mild resp symptoms Procedures Procedure Date Related Diagnosis Body Site Status Repair Hernia Incisional 1 06/25/22 Completed Hysteroscopy with D&C 07/13/21 Com pleted Gastric bypass 09/2020 Completed EGD (esophagogastroduodenosc opy) gastric outlet reduction 10/04/19 Complet ed Dilation and curettage 07/26/18 Co mpleted Delayed closure of abdominal wall 2 04/04/18 Completed Exploratroy and explantation of abdominal mesh 03/28/18 Completed Wound opened up 3 01/25/18 Complet ed open hernia repair 05/2017 Comple fadia Cholecystectomy 2016 Completed excison of seroma 04/13/11 Complet ed Extraction of wisdom tooth Completed Open repair of incisional hernia 4 Completed 1auto-populated from documented surgical case 2Delayed primary closure of abdominal wound 3and cleaned Results Laboratory List Name Date Urine Qual POCT 06/25/22 Most recent to oldest [Reference Range]: 1 U Preg POCT [Negative] Negative (06/25/22 6:30 AM) Vital Signs Most recent to oldest [Reference Range]: 1 2 3 Temperature Temporal Artery [36-38 Deg C] 36.8 Deg C (06/25/22 9:36 AM) 36.9 Deg C (06/25/22 8:46 AM) 36.8 Deg C (06/25/22 6:29 AM) Temperature Temporal Artery (DegF) [97.3-100 Deg F] 98.42 Deg F (06/25/22 8:46 AM) Apical Heart Rate [60-100 bpm] 69 bpm (06/25/22 6:29 AM) Peripheral Pulse Rate [60-100 bpm] 92 bpm (06/25/22 9:13 AM) 90 bpm (06/25/22 9:12 AM) 92 bpm (06/25/22 9:11 AM) Respiratory Rate [12-24 br/min] 16 br/min (06/25/22 6:29 AM) Blood Pressure [90-140/60-90 mmHg] 118/60mmHg (06/25/22 9:13 AM) 118/60mmHg (06/25/22 9:12 AM) 125/73mmHg (06/25/22 9:11 AM) Mean Arterial Pressure, Cuff [65-140 mmHg] 79 mmHg (06/25/22 9:13 AM) 79 mmHg (06/25/22 9:12 AM) 90 mmHg (06/25/22 9:11 AM) Mean Arterial Pressure Cuff 77 mmHg (06/25/22 9:13 AM) 77 mmHg (06/25/22 9:12 AM) 88 mmHg (06/25/22 9:11 AM) Weight 104.000 kg (06/24/22 11:55 AM) Weight Dosing 104.000 kg (06/24/22 11:55 AM) Height 168.000 cm (06/24/22 11:55 AM) Height/Length Dosing 168.000 cm (06/24/22 11:55 AM) Social History Social History Type Response Tobacco Former tobacco user Tobacco Use:. Sex Female Patient Care team information Care Team Personnel Name: Pierre Pineda MD, FACOG Position: Physician - Women's Health Member Role: ON SITE PROPERTY MANAGER Physician Address: Address: [address] [place] [address] Name: Buster Andrade Position: No Access Member Role: Primary Care Physician Address: Address: [address] [place] [address]- Care Team Related Persons Name: MARTIN VIVAS Address: Home Name: ELY VIVAS Address: Home [address] [place] [id number]
--- OUTSIDE RECORDS SUMMARY | 2023-02-25 09:36 | XMS_ITS | Continuity of Care Document ---
Author Name Unknown Organization [facility] Address [address] [place] [address] Care Team Providers Care Sales Marketing Coordinator Name Role Phone Buster Andrade Primary Care Physician Encounter [facility] NBR [id number] Date(s): 07/06/22 - 07/06/22 [facility] [address], [place] [address] Discharge Disposition: Home or Self Care Attending Physician: Sharon Weeks MD Allergies, Adverse Reactions, Alerts Substance Reaction Severity Status Vicodin Nausea Mild Active Tylenol with Codeine #3 Nausea Mild Acti ve Assessment and Plan Future Appointments Functional Status 07/06/22 Recent Travel History No recent travel Other [...] EGD (esophagogastroduodenosc opy) gastric outlet reduction 10/04/19 [facility] ed Dilation and curettage 07/26/18 Co mpleted Delayed closure of abdominal wall 2 04/04/18 Completed Exploratroy and explantation of abdominal mesh 03/28/18 Completed Wound opened up 3 01/25/18 [facility] ed open hernia repair 05/2017 Comple fadia Cholecystectomy 2016 Completed excison of seroma 04/13/11 [facility] ed Extraction of wisdom tooth Completed Open repair of incisional hernia 4 Completed 1auto-populated from documented surgical case 2Delayed primary closure of abdominal wound 3and cleaned Vital Signs Most recent to oldest [Reference Range]: 1 Apical Heart Rate [60-100 bpm] 88 bpm (07/06/22 8:58 AM) Blood Pressure [90-140/60-90 mmHg] 118/6 0mmHg (07/06/22 8:58 AM) Weight 106.59 kg (07/06/22 8:58 AM) Weight Measured (lbs) 234.99 lb (07/06/22 8:58 AM) [place] Body Weight Calculated 59.3 kg (07/06/22 8:58 AM) Height 167.64 cm (07/06/22 8:58 AM) Height/Length Measured (inches) 66 inch (07/06/22 8:58 AM) BSA Measured 2.23 m2 (07/06/22 8:58 AM) Body Mass Index 37.93 kg/m2 (07/06/22 8:58 AM) Social History Social History Type Response Tobacco Former tobacco user Tobacco Use:. Sex Female Patient Care team information Care Team Personnel Name: Pierre Pineda MD, FACOG Position: Physician - Women's Health Member Role: PARISH NURSE Physician Address: Address: [address] [place] [address] Name: Buster Andrade Position: No Access Member Role: Primary Care Physician Address: Address: [address] [place] [address]- Care Team Related Persons Name: MARTIN VIVAS Address: Home Name: ELY VIVAS Address: Home [address] [place] [id number]
--- OUTSIDE RECORDS SUMMARY | 2023-02-25 09:36 | XMS_ITS | Continuity of Care Document ---
Author Name Unknown Organization [facility] Address [address] [place] [phone] Encounter [facility] FIN NBR [id number] Date(s): 03/03/22 - 03/03/[address] [address]- [place] Encounter Diagnosis Pelvic pain(Discharge Diagnosis) - 03/03/22 Discharge Disposition: Home or Self Care Attending Physician: Harsha Alcantara MD Admitting Physician: Harsha Alcantara MD Allergies, Adverse Reactions, Alerts Substance Reaction Severity Status Vicodin Unknown Unknown Active Tylenol with Codeine #3 Unknown Unknown Acti ve Functional Status 03/03/22 Other exposure to Infectious Disease Non e [...] tab, 0 Refill(s) Start Date: 03/03/22 Status: Ordered norethindrone 5 mg oral tablet 5 mg = 1 tab, Oral, every 4 hr, PRN bleeding, X 28 days, # 40 tab, 2 Refill(s), 05/24/22 12:22:00 EST, Pharmacy: [facility] #[id number] Start Date: 03/01/22 Stop Date: 1/23/23 Status: Ordered tranexamic acid 650 mg oral tablet 1,300 mg = 2 tab, Oral, TID, # 30 tab, 0 Refill(s), Pharmacy: [facility] #[id number] Start Date: 03/02/22 Status: Ordered Tylenol 325 mg oral capsule 1 Unknown, 0 Refill(s) Start Date: 02/15/22 Status: Ordered Vitamin B12 0 Refill(s) Start Date: 02/15/22 Status: Ordered Vitamin D2 1.25 mg (50,000 intl units) oral capsule 0 Refill(s) Start Date: 02/15/22 Status: Ordered Mental Status 03/03/22 Eye Opening Response Vassar Spontaneous ly Best Verbal Response [place] Oriented Best Motor Response Joanne Obeys comman ds Vassar Coma Score 15 Problem List Condition Confirmation Course Effective Dates [...] 2and cleaned Results Laboratory List Name Date Automated Diff 03/03/22 CBC w/ Diff 03/03/22 Comprehensive Metabolic Panel (CMP) 03/03 Urinalysis Microscopic 03/03/22 Urinalysis with Micro if Indicated and C ulture if Indicated 03/03/22 Most recent to oldest [Reference Range]: 1 WBC [4.8-10.8 K/mcL] 5.7 K/mcL (03/03/22 2:10 PM) RBC [4.20-6.10 Million/mcL] 4.23 Million /mcL (03/03/22 2:10 PM) Neutro Auto [42.2-75.2 %] 50.0 % (03/03/22 2:10 PM) Lymph Auto [20.5-51.1 %] 41.1 % (03/03/22 2:10 PM) [place] Auto [1.7-9.3 %] 6.8 % (03/03/22 2:10 PM) Basophil Auto [0.0-0.2 %] 0.7 % *HI* (03/03/22 2:10 PM) BUN [8-26 mg/dL] 17 mg/dL (03/03/22 2:10 PM) UA Color [Yellow] Yellow (03/03/22 2:00 PM) UA WBC [0-3] 6-10 *ABN* (03/03/22 2:00 PM) Glucose Level [74-106 mg/dL] 114 mg/dL *HI* (03/03/22 2:10 PM) Potassium Level [3.5-5.1 mmol/L] 4.0 mmo l/L (03/03/22 2:10 PM) Baso Absolute [0.0-0.2 K/mcL] 0.0 K/mcL (03/03/22 2:10 PM) MCV [80.0-99.0 fL] 89.6 fL (03/03/22 2:10 PM) UA Urobilinogen [0.2] 0.2 (03/03/22 2:00 PM) UA Bili [Negative] Small *ABN* (03/03/22 2:00 PM) UA Ketones [Negative] Trace *ABN* (03/03/22 2:00 PM) AST [15-41 IntlUnit/L] 18 IntlUnit/L (03/03/22 2:10 PM) ALT [14-54 IntlUnit/L] 11 IntlUnit/L *LOW* (03/03/22 2:10 PM) MCHC [32.0-36.0 g/dL] 32.7 g/dL (03/03/22 2:10 PM) Osmolality [275-295 mOsm/kg] 274 mOsm/kg *LOW* (03/03/22 2:10 PM) Sodium Level [134-143 mmol/L] 136 mmol/L (03/03/22 2:10 PM) UA RBC [0-3] 50-99 *ABN* (03/03/22 2:00 PM) UA Leuk Est [Negative] Negative (03/03/22 2:00 PM) Lymph Absolute [1.2-3.4 K/mcL] 2.4 K/mcL (03/03/22 2:10 PM) UA Nitrite [Negative] Negative (03/03/22 2:00 PM) UA Glucose [Negative] Negative (03/03/22 2:00 PM) Hct [37.0-52.0 %] 37.9 % (03/03/22 2:10 PM) UA Bacteria [None Seen] None Seen (03/03/22 2:00 PM) Calcium Level [8.9-10.3 mg/dL] 8.7 mg/dL *LOW* (03/03/22 2:10 PM) [place] Absolute [0.1-0.6 K/mcL] 0.4 K/mcL (03/03/22 2:10 PM) Albumin Level [3.5-5.0 g/dL] 4.0 g/dL (03/03/22 2:10 PM) Protein Total [6.5-8.1 g/dL] 6.6 g/dL (03/03/22 2:10 PM) UA Protein [Negative] Negative (03/03/22 2:00 PM) MCH [27.0-31.0 pg] 29.3 pg (03/03/22 2:10 PM) Neutro Absolute [1.4-6.5 K/mcL] 2.9 K/mc L (03/03/22 2:10 PM) Bilirubin Total [0.2-1.2 mg/dL] 0.9 mg/d L (03/03/22 2:10 PM) Hgb [12.0-18.0 g/dL] 12.4 g/dL (03/03/22 2:10 PM) Alk Phos [38-130 IntlUnit/L] 60 IntlUnit /L (03/03/22 2:10 PM) UA Blood [Negative] Large *ABN* (03/03/22 2:00 PM) MPV [7.4-10.4 fL] 9.0 fL (03/03/22 2:10 PM) UA Spec Grav >=1.030 *NA* (03/03/22 2:00 PM) Platelets [130-400 K/mcL] 198 K/mcL (03/03/22 2:10 PM) CO2 [22-32 mmol/L] 23 mmol/L (03/03/22 2:10 PM) Eos Absolute [0.0-0.2 K/mcL] 0.1 K/mcL (03/03/22 2:10 PM) UA Squam Epithelial [0-3] 6-10 *ABN* (03/03/22 2:00 PM) UA pH 5.00 *NA* (03/03/22 2:00 PM) eGFR Non-AA 126 *NA* (03/03/22 2:10 PM) eGFR AA 126 *NA* (03/03/22 2:10 PM) UA Appear [Clear] Slightly Cloudy *ABN* (03/03/22 2:00 PM) Chloride Level [98-111 mmol/L] 105 mmol/ L (03/03/22 2:10 PM) RDW-CV [11.5-14.5 %] 14.0 % (03/03/22 2:10 PM) A/G Ratio 1.5 *NA* (03/03/22 2:10 PM) BUN/Creat Ratio [8.0-20.0] 26.2 *HI* (03/03/22 2:10 PM) Globulin 2.6 *NA* (03/03/22 2:10 PM) Imm Gran Absolute 0.00 *NA* (03/03/22 2:10 PM) Imm Gran Auto [0.0-0.5 %] 0.0 % (03/03/22 2:10 PM) UA Culture Ind?. [No] No (03/03/22 2:00 PM) Urine Srce Clean Catch (03/03/22 2:00 PM) Creatinine Level [0.44-1.00 mg/dL] 0.65 mg/dL (03/03/22 2:10 PM) Anion Gap [3.0-12.0] 8.0 (03/03/22 2:10 PM) Eos, Auto [0.00-3.00 %] 1.40 % (03/03/22 2:10 PM) Radiology Reports * Exam Date Time Procedure Performing Provider Status 03/03/22 4:20 PM US Pelvic Complete Pablo Carlos ed; Auth (Verified) Notes: (US Pelvic Complete) Reason For Exam: Hx of cyst, right sided pelvic pain US Pelvic Complete EXAM DESCRIPTION: US Pelvic Complete 03/03/2022 INDICATION: HX OF CYST, RIGHT SIDED PELVIC PAIN TECHNIQUE: Transabdominal Grayscale and color Doppler ultrasound examination of the pelvis. Patient declined transvaginal scanning. FINDINGS: The uterus measures 3.3 cm x 8.5 cm x 6.6 cm. No focal uterine lesion. The endometrial stripe thickness is 8.9 mm. The left ovary measures 1.9 cm x 2.8 cm x 2.2 cm. Small ovoid hypoechoic structure on the left ovary consistent with dominant follicle measuring 1.1 x 1.1 cm. The right ovary measures 1.8 cm x 4 cm x 1.7 cm. No solid or cystic adnexal mass on either side. Color-flow analysis demonstrated bilateral ovarian blood flow No free fluid. IMPRESSION: Normal pelvic ultrasound. JOB #: [id number] Final Signed by: Carlos Morocho MD Signed (Electronic Signature): 03/03/2022 4:43 pm * Exam Date Time Procedure Performing Provider Status 03/03/22 2:[address] Abdomen and Pelvis w/ Contrast Geovanna Leary; Auth (Verified) Notes: (CT Abdomen and Pelvis w/ Contrast) Reason For Exam: abd pain CT Abdomen and Pelvis w/ Contrast EXAM DESCRIPTION: CT Abdomen and Pelvis w/ Contrast 03/03/2022 INDICATION: ABD PAIN TECHNIQUE: All CT scans at this facility use at least one of these dose optimization techniques: Automated exposure control; mA and/or kV adjustment per patient size (includes targeted exams where dose is matched to clinical indication); or iterative reconstruction. Technique: Axial CT images of the abdomen/pelvis with IV contrast administration 100 cc of Isovue 370 contrast was utilized COMPARISON: 11/10/2020 FINDINGS: No focal hepatic lesion. Small area of low attenuation in the anterior aspect of the left hepatic lobe adjacent to the fissure for the ligamentum teres most consistent with focal fatty infiltration based on location and appearance. This was present previously. Normal spleen size without focal mass Status post cholecystectomy. Adrenal glands and pancreas appear within normal limits. No focal renal mass, hydronephrosis or perinephric fluid collection on either side Normal caliber abdominal aorta. No retroperitoneal adenopathy in the abdomen or pelvis. No pelvic mass identified No bowel dilatation to suggest obstruction or ileus. No free intraperitoneal air, ascites or inflammatory changes. Normal appendix. Postsurgical changes in the region of the stomach which were seen previously. The visualized lung bases are clear. No suspicious regional osseous lesions. IMPRESSION: No acute findings in the abdomen or pelvis Nonobstructive bowel pattern. No free air or inflammatory changes. Normal appendix. JOB #: [id number] Final Signed by: Carlos Morocho MD Signed (Electronic Signature): 03/03/2022 2:55 pm Vital Signs Most recent to oldest [Reference Range]: 1 Temperature Temporal Artery [36-38 Deg C ] 36.7 Deg C (03/03/22 1:42 PM) Peripheral Pulse Rate [60-100 bpm] 88 bp m (03/03/22 1:42 PM) Respiratory Rate [12-24 br/min] 16 br/mi n (03/03/22 1:42 PM) Blood Pressure [90-140/60-90 mmHg] 139/8 4mmHg (03/03/22 1:42 PM) Weight Dosing 104.33 kg (03/03/22 2:04 PM) Weight Estimated 104.33 kg (03/03/22 1:42 PM) Height/Length Dosing 167.000 cm (03/03/22 2:04 PM) Height/Length Estimated 167.000 cm (03/03/22 1:42 PM) Social History Social History Type Response Tobacco Never tobacco user T obacco Use:. Sex Female Hospital Discharge Instructions Patient Education 03/03/2022 15:18:55 Pelvic Pain, Female Pelvic Pain, Female Pelvic pain is pain in your lower abdomen, below your belly button and between your hips. The pain may start suddenly (be acute), keep coming back (be recurring), or last a long time (become chronic). Pelvic pain that lasts longer than 6 months is considered chronic. Pelvic pain may affect your: ??? Reproductive organs. ??? Urinary system. ??? Digestive tract. ??? Musculoskeletal system. There are many potential causes of pelvic pain. Sometimes, the pain can be a result of digestive orurinary conditions, strained muscles or ligaments, or reproductive conditions. Sometimes the cause of pelvic pain is not known. Follow these instructions at home: ??? Take orkg-irh-tyeewjx and prescription medicines only as told by your health care provider. ??? Rest as told by your health care provider. ??? Do not have sex if it hurts. ??? Keep a journal of your pelvic pain. Write down: ??? When the pain started. ??? Where the pain is located. ??? What seems to make the pain better or worse, such as food or your period (menstrual cycle). ??? Any symptoms you have along with the pain. ??? Keep all follow-up visits as told by your health care provider. This is important. Contact a health care provider if: ??? Medicine does not help your pain. ??? Your pain comes back. ??? You have new symptoms. ??? You have abnormal vaginal discharge or bleeding, including bleeding after menopause. ??? You have a fever or chills. ??? You are constipated. ??? You have blood in your urine or stool. ??? You have foul-smelling urine. ??? You feel weak or light-headed. Get help right away if: ??? You have sudden severe pain. ??? Your pain gets steadily worse. ??? You have severe pain along with fever, nausea, vomiting, or excessive sweating. ??? You lose consciousness. Summary ??? Pelvic pain is pain in your lower abdomen, below your belly button and between your hips. ??? There are many potential causes of pelvic pain. ??? Keep a journal of your pelvic pain. This information is not intended to replace advice given to you by your health care provider. Make sure you discuss any questions you have with your health care provider. Document Revised: 10/04/2018 Document Reviewed: 10/04/2018 [employer] Patient Education ?? 2021 [employer]. Follow Up Care 03/03/2022 13:42:40 With:Follow up with primary care provider Address:Unknown When:1 month With:Tylenol/Motrin for Pain/Fever Relief Address:Unknown When:[address] Abdomen and Pelvis W contrast IV * Carlos Morocho MD: VERIFY, VERIFY Event Display: Report EXAM DESCRIPTION: CT Abdomen and Pelvis w/ Contrast 03/03/2022 INDICATION: ABD PAIN TECHNIQUE: All CT scans at this facility use at least one of these dose optimization techniques: Automated exposure control; mA and/or kV adjustment per patient size (includes targeted exams where dose is matched to clinical indication); or iterative reconstruction. Technique: Axial CT images of the abdomen/pelvis with IV contrast administration 100 cc of Isovue 370 contrast was utilized COMPARISON: 11/10/2020 FINDINGS: No focal hepatic lesion. Small area of low attenuation in the anterior aspect of the left hepatic lobe adjacent to the fissure for the ligamentum teres most consistent with focal fatty infiltration based on location and appearance. This was present previously. Normal spleen size without focal mass Status post cholecystectomy. Adrenal glands and pancreas appear within normal limits. No focal renal mass, hydronephrosis or perinephric fluid collection on either side Normal caliber abdominal aorta. No retroperitoneal adenopathy in the abdomen or pelvis. No pelvic mass identified No bowel dilatation to suggest obstruction or ileus. No free intraperitoneal air, ascites or inflammatory changes. Normal appendix. Postsurgical changes in the region of the stomach which were seen previously. The visualized lung bases are clear. No suspicious regional osseous lesions. IMPRESSION: No acute findings in the abdomen or pelvis Nonobstructive bowel pattern. No free air or inflammatory changes. Normal appendix. JOB #: [id number] Final Signed by: Carlos Morocho MD Signed (Electronic Signature): 03/03/2022 2:55 pm US Pelvis * Carlos Morocho MD: VERIFY, VERIFY Event Display: Report EXAM DESCRIPTION: US Pelvic Complete 03/03/2022 INDICATION: HX OF CYST, RIGHT SIDED PELVIC PAIN TECHNIQUE: Transabdominal Grayscale and color Doppler ultrasound examination of the pelvis. Patient declined transvaginal scanning. FINDINGS: The uterus measures 3.3 cm x 8.5 cm x 6.6 cm. No focal uterine lesion. The endometrial stripe thickness is 8.9 mm. The left ovary measures 1.9 cm x 2.8 cm x 2.2 cm. Small ovoid hypoechoic structure on the left ovary consistent with dominant follicle measuring 1.1 x 1.1 cm. The right ovary measures 1.8 cm x 4 cm x 1.7 cm. No solid or cystic adnexal mass on either side. Color-flow analysis demonstrated bilateral ovarian blood flow No free fluid. IMPRESSION: Normal pelvic ultrasound. JOB #: [id number] Final Signed by: Carlos Morocho MD Signed (Electronic Signature): 03/03/2022 4:43 pm
--- OUTSIDE RECORDS SUMMARY | 2023-02-25 09:37 | XMS_ITS | Continuity of Care Document ---
Author Name Unknown Organization [facility] Ambulatory Clinics Address [address] [place] [address] Care Team Providers Care Welder Assembler Name Role Phone Buster Andrade Primary Care Physician Encounter [facility] NBR [id number] Date(s): 07/02/22 - 07/02/22 [facility] Ambulatory Clinics [address], [place] [address] Encounter Diagnosis Abdominal pain(Discharge Diagnosis) - 07/02/22 Discharge Disposition: Home or Self Care Attending Physician: Sharon Weeks MD Allergies, Adverse Reactions, Alerts Substance Reaction Severity Status Vicodin Nausea Mild Active Tylenol with Codeine #3 Nausea Mild Acti ve Assessment and Plan Future Appointments Functional Status 07/02/22 Recent Travel History No recent travel Other [...] Deg C ] 35.7 Deg C *LOW* (07/02/22 8:59 AM) Apical Heart Rate [60-100 bpm] 86 bpm (07/02/22 8:59 AM) Blood Pressure [90-140/60-90 mmHg] 108/7 8mmHg (07/02/22 8:59 AM) Weight 109.5 kg (07/02/22 8:59 AM) Weight Measured (lbs) 241.406 lb (07/02/22 8:59 AM) [place] Body Weight Calculated 59.3 kg (07/02/22 8:59 AM) Height 167.64 cm (07/02/22 8:59 AM) Height/Length Measured (inches) 66 inch (07/02/22 8:59 AM) BSA Measured 2.26 m2 (07/02/22 8:59 AM) Body Mass Index 38.96 kg/m2 (07/02/22 8:59 AM) Social History Social History Type Response Tobacco Former tobacco user Tobacco Use:. Sex Female Physician Outpatient Note * Sharon Weeks MD: PERFORM Event Display: Office Clinic Note Physician Authored Date: [id number] HARINDERKYLEE DUMONT John :1995 Age:27 years Sex:Female Visit Date:07/02/2022 Primary Care Physician: Buster Andrade Chief Complaint POST OP INCISIONAL HERNIA REPAIR History of Present Illness Kylee is feeling much better today. ??She states on Tuesday she feels as though she turned the corner and is now up??able to move about without any difficulty??and having no incisional pain. ??Notes no redness or drainage from her incision. Physical Exam Vitals & Measurements T:??35.7?C ??(Temporal Artery)?? HR:??86??(Apical)?? BP:??108/78?? SpO2:??96%?? HT:??167.64??cm?? WT:??109.5??kg?? BMI:??38.96?? BSA:??2.26?? He is resting comfortably in the exam chair smiling and very pleasant Abdomen: Incision is healthy no evidence of hematoma cellulitis, there is no tenderness and no drainage Psych: Cooperative Assessment/Plan 1.??Abdominal pain??R10.9 Kylee??is 1 week status post exploration of her abdominal wound??for pain. ??I found she did not have a hernia but did have an area where the mesh??seem to form??a lump or not. ??It was not removed.?? Rather the wound was simply closed.?? Jean-Claude were used to close the skin it is too soon to remove those so I will see her again in 1 week Problem List/Past Medical History Ongoing Abdominal wall fluid collections Abnormal uterine bleeding Anxiety Calculus of kidney History of COVID-19 History of methicillin resistant Staphylococcus aureus infection Intra-abdominal collection Kidney stone Mixed anxiety and depressive disorder PONV - Postoperative nausea and vomiting Recurrent UTI - urinary tract infection Historical Amenorrhea Procedure/Surgical History ? ?Repair Hernia Incisional (06/25/2022)? ?Hysteroscopy with D&C (07/14/2021)? ?Gastric bypass (09/2020)???EGD (esophagogastroduodenoscopy) gastric outlet reduction (10/05/2019)???Dilation and curettage (07/27/2018)???Delayed closure of abdominal wall (04/05/2018)???Exploratroy and explantationof abdominal mesh (03/29/2018)???Wound opened up (01/26/2018)???open hernia repair (05/2017)???Cholecystectomy (2015)???excison of seroma (04/14/2011)???Extraction of wisdom tooth???Open repair of incisional hernia Medications calcium citrate multivitamin adult, oral tablet omeprazole 20 mg oral delayed release capsule, 20 mg= 1 cap, Oral, Daily ondansetron 4 mg oral tablet, disintegrating, 4 mg= 1 tab, Oral, TID Tylenol 325 mg oral capsule Vitamin B12 Vitamin D2 1.25 mg (50,000 intl units) oral capsule Allergies Tylenol with Codeine #3??(Nausea) Vicodin??(Nausea) Social History Alcohol Never Electronic Cigarette/Vaping Electronic Cigarette Use: Never. 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 Home/Environment Lives with Children, Significant other. Living situation: Home/Independent. Substance Use Never Tobacco Former tobacco user Tobacco Use:. Immunizations Vaccine Date Status SARS-CoV-2 (COVID-19) mRNA-1273 vaccine 11/18/2020 Recorded Comments : Unit: Unknown SARS-CoV-2 (COVID-19) mRNA-1273 vaccine 10/22/2020 Recorded Comments : Unit: Unknown Electronically Signed on 07/02/22 10:05 AM Sharon Weeks MD Patient Care team information Care Team Personnel Name: Pierre Pineda MD, FACOG Position: Physician - Women's Health Member Role: ELEVATOR DISPATCHER Physician Address: Address: [address] [place] [address] Name: Buster Andrade Position: No Access Member Role: Primary Care Physician Address: Address: [address] [place] [id number]- Care Team Related Persons Name: MARTIN VIVAS Address: Home Name: ELY VIVAS Address: Home [address] [place] [address]
[2023-02-25 09:47] VITALS: BP 122/80; PULSE 92; RESP 23
[2023-02-25] MEDS: Normal Saline 500 ML IV (10:02)
[2023-02-25 10:05] LABS: Absolute Basophil Count 0.05 10^3/uL (0.0-0.2); Absolute Eosinophil Count 0.09 10^3/uL (0.0-0.7); Absolute Lymphocyte Count 1.66 10^3/uL (1.2-3.4); Absolute Monocyte Count 0.43 10^3/uL (0.1-0.8); Absolute Neutrophil Count 3.26 10^3/uL (1.2-6.7); Basophils % 0.9; Eosinophils % 1.6; HCT 36.8 % (36.0-46.0); Lymphocytes % 30.2; MCH 27.5 pg (27.0-33.0); MCHC 32.6 % (32.0-36.0); MCV 84 fL (80-95); MPV 9.5 fL (8.0-11.0); Monocytes % 7.8; Neutrophils % 59.5; Platelet Count 207 10^3/uL (130-400); RBC 4.37 10^6/uL (3.93-5.22); RDW 14.6 % (11.7-14.6); RDW-SD 45.1 fL; WBC 5.49 10^3/uL (4.4-10.8)
[2023-02-25 10:27] LABS: Anion Gap 8.6 mmol/L (3-11); BUN 13 mg/dL (7-18); CO2 26.4 mmol/L (21.0-32.0); CREATININE 0.7 mg/dL (0.55-1.02); Calcium 8.9 mg/dL (8.5-10.1); Chloride 105 mmol/L (98-107); Estimated GFR 123.01 (mL/min/1.73m2); Glucose 85 mg/dL (74-106); Potassium 3.2 mmol/L (3.5-5.1); Sodium 140 mmol/L (136-145); TSH (W/Ref FT4) 1.49 uIU/mL (0.36-3.74); Troponin I < 50 ng/L (<or=60)
[2023-02-25 10:40] LABS: HCG Qual (Serum) Negative
--- NOTE | 2023-02-25 19:45 | NUR.NOTE ---
Pt placed on care management list to see PCP Dena for complications to be seen next week Per ED Dr. Adams.
--- NOTE | 2023-02-26 07:29 | NUR.NOTE ---
Accessed pt chart to determine number of EKG orders. Duplicate order was cancelled. Nursing Note:
== END 2023-02-25 11:02 | disposition home or self-care (01) ==
PROVIDERS: Emergency Provider Emergency Medicine; PCP Nurse Practitioner Family
DX: R00.2 Palpitations (principal); R00.0 Tachycardia, unspecified; I10 Essential (primary) hypertension
CPT/HCPCS: 80048; 93005; 96360; 99282; 83735; 84443; 84484; 84703; 85025; 93010; 99283

== ENCOUNTER 2023-05-05 03:10 | Outpatient (CLI) | payer OTHER, MEDICAID, SELFPAY ==
[2023-05-05 10:56] LABS: Panorama Kit Sent via Fed Ex
[2023-05-05 11:11] LABS: Abs Immature Grans 0.02 10^3/uL (0.0-0.06); Absolute Basophil Count 0.03 10^3/uL (0.0-0.2); Absolute Eosinophil Count 0.06 10^3/uL (0.0-0.7); Absolute Monocyte Count 0.42 10^3/uL (0.1-0.8); Absolute Neutrophil Count 4.78 10^3/uL (1.2-6.7); Basophils % 0.4; Eosinophils % 0.8; HCT 35.1 % (36.0-46.0); HGB 11.3 g/dL (11.2-15.7); Immature Grans % 0.3; Lymphocytes % 25.3; MCHC 32.2 % (32.0-36.0); MCV 84 fL (80-95); MPV 8.9 fL (8.0-11.0); Monocytes % 5.9; Neutrophils % 67.3; Platelet Count 199 10^3/uL (130-400); RBC 4.19 10^6/uL (3.93-5.22); RDW 14.4 % (11.7-14.6); RDW-SD 44.1 fL; WBC 7.11 10^3/uL (4.4-10.8)
[2023-05-05 20:13] LABS: HIV-1/2 Ag & Ab Screen Negative (Negative)
[2023-05-05 20:17] LABS: Hepatitis C Ab w Rflx HCV PCR Negative (Negative)
[2023-05-06 10:44] LABS: Varicella IgG Antibody Negative (See Note)
[2023-05-06 10:46] LABS: Rubella IgG Ab (UVM) Positive (See Note)
[2023-05-06 11:13] LABS: Hepatitis B Surface Ag Negative (Negative)
[2023-05-06 22:22] LABS: Syphilis IgG w/Reflex Nonreactive (Nonreactive)
== END 2023-05-05 03:11 | disposition home or self-care (01) ==
LOC: LBO 03:10
PROVIDERS: PCP Nurse Practitioner Family; Visit Provider Advanced Practice Midwife
DX: Z34.91 Encounter for supervision of normal pregnancy, unspecified, first trimester
CPT/HCPCS: 36415; 86787; 86803; 86850; 86900; 86901; 87340; 87389; 84443; 85025; 86762; 86780

== ENCOUNTER 2023-05-05 11:07 | Outpatient (REF) | payer OTHER, MEDICAID, SELFPAY ==
[2023-05-05 13:39] LABS: *AMPHETAMINES SCREEN URINE Negative (Negative); *BARBITURATES SCREEN URINE Negative (Negative); *BENZODIAZEPINES SCREEN URINE Negative (Negative); Cannabinoids THC Negative (Negative); Cocaine Screen,Urine Negative (Negative); METHADONE URINE SCREEN Negative (Negative); OPIATES URINE SCREEN Negative (Negative)
[2023-05-05 13:42] LABS: Tricyclic Antidepressants Negative (Negative)
[2023-05-06 12:47] LABS: Chlamydia Result Negative (Negative); GC Result Negative (Negative)
[2023-05-12 08:19] LABS: Buprenorphine Negative ng/mL (Cutoff: 5.0); Norbuprenorphine Negative ng/mL (Cutoff: 2.5)
== END 2023-05-05 11:08 | disposition home or self-care (01) ==
LOC: LBN 11:07
PROVIDERS: PCP Nurse Practitioner Family; Visit Provider Advanced Practice Midwife
DX: Z34.91 Encounter for supervision of normal pregnancy, unspecified, first trimester
CPT/HCPCS: 80307; 80348; 87491; 87591; 87086

== ENCOUNTER 2023-05-20 08:49 | Outpatient (REF) | payer OTHER, MEDICAID, SELFPAY | END 2023-05-20 08:50 | disposition home or self-care (01) | LOC: LBN 08:49 | PROVIDERS: PCP Nurse Practitioner Family; Visit Provider Advanced Practice Midwife | DX: O26.891 Other specified pregnancy related conditions, first trimester (principal); M54.89 Other dorsalgia; R82.998 Other abnormal findings in urine; Z3A.12 12 weeks gestation of pregnancy | CPT/HCPCS: 87086 ==

== ENCOUNTER 2023-08-18 14:34 | Outpatient (CLI) | payer MEDICAID, SELFPAY ==
[2023-08-18 14:38] VITALS: BP 103/59; PULSE 70; TEMP 36.8
[2023-08-18 15:19] LABS: Bilirubin Negative (Negative); Blood Negative (Negative); Clarity Clear (Clear); Glucose Negative (Negative); Ketones Trace mg/dL (Negative); Leukocyte Esterase Negative (Negative); Nitrite Negative (Negative); pH 7.5 (5-8)
[2023-08-18 15:52] VITALS: BP 103/59; PULSE 70
--- NOTE | 2023-08-18 16:32 | PDOC.NST_ITS ---
Date of service: 08/18/23 Time of Service: 16:33 NST Evaluation Reason for NST Reasons for Nonstress Test: DECREASED MOVEMENT Gestational Age Gestational Age in Weeks and Days: 25 Weeks and 1Days Test and Monitor Explained Test/Monitor Explained: Test Explained, Monitor Explained and Patient Verbalized Understanding Vital Signs Blood Pressure: 103/59 Pulse: 70 Temperature: 98.2 F NST Information Date on Monitor: 08/18/23 Time on Monitor: 14:30 Date off Monitor: 08/18/23 Time off Monitor: 16:05 Total Time on Monitor: 95 NST Interventions: PO Hydration NST Evaluation Patient States Movement: Present Accelerations: 10x10 Decelerations: None NST Results: Questionable Note Ultrasound Done: N/A. NST Note Note: Kylee is here for evaluation for abdominal pain. 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 She is taking magnesium and colace 2 tablets in the morning. Today she had BMs x 2 and was still experiencing pain.She stated that she believes it is gas pain and was relieved after she took gas-X. She did not have pain on her drive to [facility] and walk into the building and she denies pain no w. Pos. FHTs. No contractions reported. Her pain is periumbilical. She is S/P gastric bypass and cholecystectomy. I recommended taking colace TID and continuing the magnesium and call if symptoms recur. NST Reviewed and Verified by: Akilah Albarran
[2023-08-18 16:37] VITALS: BP 103/59; PULSE 70; TEMP 36.8
== END 2023-08-18 16:20 | disposition home or self-care (01) ==
LOC: BCD 14:35 → OBS 14:37
PROVIDERS: PCP Nurse Practitioner Family; Visit Provider Advanced Practice Midwife
DX: O36.8120 Decreased fetal movements, second trimester, not applicable or unspecified (principal); Z3A.25 25 weeks gestation of pregnancy
CPT/HCPCS: 59025; 81003

== ENCOUNTER → 2023-09-08 00:03 | Outpatient (CLI) | payer MEDICAID, SELFPAY ==
--- NOTE | 2023-09-08 12:30 | DI.US_ITS ---
Exam(s) US OB DAY WEIGHT EXAM: US OB DAY WEIGHT CLINICAL HISTORY: growth,day,O09.229,bariatric surgery,Z98.84. TECHNIQUE: Transabdominal obstetrical ultrasound performed. COMPARISON: US US OB 1ST TRIMESTER from 05/11/2023 FINDINGS: Number of fetuses: 1 position: VARIED Placental location: ANTERIOR No evidence of previa. BIOMETRIC DATA: BPD: 7.12cm, 28weeks 4days HC: 27.59cm, 30weeks 1day AC: 22.33cm, 26weeks 5days FL: 5.02cm, 27weeks EFW: 1,048.91g, 2lb 5.73oz, 11.9% Composite Age: 28weeks 1day FARHAD: 11/30/2023 Heart Rate: 130bpm Amniotic fluid index: 9.68cm. The largest pocket is 4.3 cm. IMPRESSION: 1. Single live intrauterine gestation as above. There has been normal interval growth based on a gest ational age. 2. Estimated weight is 1049gms. This is the 12th percentile. 3. Amniotic fluid index is 9.7 cm. The largest pocket is 4.3 cm. DATA REPOSITORY:
== END ==
PROVIDERS: PCP Nurse Practitioner Family; Visit Provider Advanced Practice Midwife
DX: O09.292 Supervision of pregnancy with other poor reproductive or obstetric history, second trimester (principal); Z3A.28 28 weeks gestation of pregnancy
CPT/HCPCS: 76816

== ENCOUNTER 2023-09-08 01:16 | Outpatient (CLI) | payer MEDICAID, SELFPAY ==
[2023-09-08 11:16] LABS: Abs Immature Grans 0.05 10^3/uL (0.0-0.06); Absolute Basophil Count 0.04 10^3/uL (0.0-0.2); Absolute Eosinophil Count 0.06 10^3/uL (0.0-0.7); Absolute Lymphocyte Count 2.37 10^3/uL (1.2-3.4); Absolute Monocyte Count 0.49 10^3/uL (0.1-0.8); Absolute Neutrophil Count 5.85 10^3/uL (1.2-6.7); Basophils % 0.5 %; Eosinophils % 0.7 %; HCT 29.3 % (36.0-46.0); HGB 9.3 g/dL (11.2-15.7); Immature Grans % 0.6 %; Lymphocytes % 26.7 %; MCH 26.6 pg (27.0-33.0); MCHC 31.7 % (32.0-36.0); MCV 84 fL (80-95); MPV 9.3 fL (8.0-11.0); Monocytes % 5.5 %; Platelet Count 239 10^3/uL (130-400); RDW 13.7 % (11.7-14.6); RDW-SD 41.8 fL; WBC 8.86 10^3/uL (4.4-10.8)
[2023-09-08 11:27] LABS: Iron 30 ug/dL (50-170); Total Iron Binding Capacity 513 ug/dL (250-450); Transferrin Sat 6 % (15-50)
[2023-09-08 11:39] LABS: Hemoglobin A1C 5.5 % (<5.7)
[2023-09-08 11:50] LABS: Vitamin D 25 Total 18.2 ng/mL (30-100)
[2023-09-08 11:59] LABS: ALT 26 U/L (14-59); AST 5 U/L (15-37); Albumin 2.7 g/dL (3.4-5.0); Alkaline Phosphatase 92 U/L (46-116); Anion Gap 10.7 mmol/L (3-11); BUN 10 mg/dL (7-18); Bilirubin, Total 0.3 mg/dL (0.2-1.0); CO2 22.3 mmol/L (21.0-32.0); CREATININE 0.6 mg/dL (0.55-1.02); Calcium 8.1 mg/dL (8.5-10.1); Chloride 107 mmol/L (98-107); Estimated GFR 126.87 (mL/min/1.73m2); Ferritin 4 ng/mL (8-252); Glucose 76 mg/dL (74-106); Potassium 3.5 mmol/L (3.5-5.1); Sodium 140 mmol/L (136-145)
== END 2023-09-08 01:17 | disposition home or self-care (01) ==
LOC: LBO 01:16
PROVIDERS: PCP Nurse Practitioner Family; Visit Provider Advanced Practice Midwife
DX: Z68.35 Body mass index [BMI] 35.0-35.9, adult; Z98.84 Bariatric surgery status; O09.292 Supervision of pregnancy with other poor reproductive or obstetric history, second trimester; Z3A.24 24 weeks gestation of pregnancy
CPT/HCPCS: 36415; 80053; 82306; 82728; 83036; 83540; 83550; 85025

== ENCOUNTER 2023-09-29 03:50 | Outpatient (RCR) | payer MEDICAID, SELFPAY ==
[2023-09-12] MEDS: Normal Saline Flush 10 ML SYR IVP (08:19)
[2023-09-12] MEDS: IRON SUCROSE COMPLEX 200 MG in Normal Saline 100 ML 440 MG IVPB (08:19)
[2023-09-23 12:43] LABS: HGB 9.7 g/dL (11.2-15.7)
[2023-09-23] MEDS: IRON SUCROSE COMPLEX 200 MG in Normal Saline 100 ML 440 MG IVPB (12:57)
[2023-09-23] MEDS: Normal Saline Flush 10 ML SYR IVP (12:57)
[2023-09-29] MEDS: Normal Saline Flush 10 ML SYR IVP (11:01)
[2023-09-29 11:24] LABS: HGB 8.8 g/dL (11.2-15.7)
[2023-09-29] MEDS: IRON SUCROSE COMPLEX 200 MG in Normal Saline 100 ML 440 MG IVPB (11:42)
== END 2023-09-30 23:59 | disposition home or self-care (01) ==
LOC: INF 03:50
PROVIDERS: PCP Nurse Practitioner Family; Visit Provider Advanced Practice Midwife
DX: O99.013 Anemia complicating pregnancy, third trimester (principal)
CPT/HCPCS: 36415; 96365; 85018; J1756

== ENCOUNTER → 2023-10-03 02:10 | Outpatient (CLI) | payer MEDICAID, SELFPAY ==
--- NOTE | 2023-10-03 07:30 | DI.US_ITS ---
Exam(s) US OB DAY WEIGHT EXAM: US OB DAY WEIGHT CLINICAL HISTORY: growth and DAY, hx pre-eclampsia, bariatric surgery, Z34.90, O09.299. TECHNIQUE: Transabdominal obstetrical ultrasound performed. COMPARISON: US US OB DAY WEIGHT from 09/08/2023 FINDINGS: Number of fetuses: 1 position: There is a transverse lie with the head to the right. Placental location: There is a grade 2 anterior placenta. No evidence of previa. BIOMETRIC DATA: BPD: 7.7cm, 30weeks 6days HC: 30.65cm, 34weeks 1day AC: 27.99cm, 32weeks FL: 5.92cm, 30weeks 6days EFW: 1,838.57g, 4lb 1.75oz, 40.8% Composite Age: 32weeks FARHAD: 11/28/2023 Heart Rate: 128bpm Amniotic fluid index: 12.87cm. The largest pocket is 4.5 cm. IMPRESSION: 1. Single live intrauterine gestation as above. 2. Estimated weight is 1839gms. This is the 41st percentile. 3. Amniotic fluid index is 12.9 cm. The largest pocket is 4.5 cm. DATA REPOSITORY:
== END ==
PROVIDERS: PCP Nurse Practitioner Family; Visit Provider Advanced Practice Midwife
DX: O09.293 Supervision of pregnancy with other poor reproductive or obstetric history, third trimester (principal); Z3A.32 32 weeks gestation of pregnancy; Z98.84 Bariatric surgery status
CPT/HCPCS: 76816

== ENCOUNTER 2023-10-13 10:37 | Outpatient (CLI) | payer MEDICAID, SELFPAY ==
[2023-10-13 10:46] VITALS: BP 103/50; PULSE 96; TEMP 37
[2023-10-13 10:58] VITALS: BP 103/50; PULSE 96; TEMP 37
--- NOTE | 2023-10-13 10:58 | W.OBNST ---
Date of service: 10/13/23 Time of Service: 10:58 NST Evaluation Reason for NST Reasons for Nonstress Test: OTHER, SEE COMMENT Reason for NST Other: Hx preeclampsia Gestational Age Gestational Age in Weeks and Days: 33 Weeks and 1Days Test and Monitor Explained Test/Monitor Explained: Test Explained, Monitor Explained and Patient Verbalized Understanding Vital Signs Blood Pressure: 103/50 Pulse: 96 Temperature: 98.6 F NST Information Date on Monitor: 10/13/23 Time on Monitor: 10:00 Date off Monitor: 10/13/23 Time off Monitor: 10:30 Total Time on Monitor: 30 NST Interventions: None NST Evaluation Patient States Movement: Present FHR Baseline: 140 Variability: Moderate 6-25 bpm Accelerations: 15x15 Decelerations: None NST Results: Reactive Note Ultrasound Done: N/A. NST Note Note: NST is reactive and reassuring. Will return in 1 week. YAYA NST Reviewed and Verified by: Akilah Schreiber
== END 2023-10-13 10:45 | disposition home or self-care (01) ==
LOC: BCD 10:37 → OBS 10:44
PROVIDERS: PCP Nurse Practitioner Family; Visit Provider Advanced Practice Midwife
DX: O09.293 Supervision of pregnancy with other poor reproductive or obstetric history, third trimester (principal); Z3A.33 33 weeks gestation of pregnancy
CPT/HCPCS: 59025

== ENCOUNTER 2023-10-18 09:41 | Outpatient (CLI) | payer MEDICAID, SELFPAY ==
[2023-10-18 10:27] VITALS: BP 111/70; PULSE 105; TEMP 37.1
[2023-10-18 10:40] VITALS: BP 111/70; PULSE 105
[2023-10-18 10:55] LABS: HCT 32.3 % (36.0-46.0); HGB 10.4 g/dL (11.2-15.7); MCH 27.9 pg (27.0-33.0); MCHC 32.2 % (32.0-36.0); MCV 87 fL (80-95); MPV 8.7 fL (8.0-11.0); Platelet Count 171 10^3/uL (130-400); RBC 3.73 10^6/uL (3.93-5.22); RDW 18.7 % (11.7-14.6); RDW-SD 57.8 fL; WBC 8.54 10^3/uL (4.4-10.8)
[2023-10-18 11:09] LABS: PROTEIN < 6.0 mg/dL
[2023-10-18 11:12] LABS: COMMENT (LAB VIEW ONLY) < 13.00 mg/dL
[2023-10-18 11:20] LABS: ALT 14 U/L (14-59); AST 8 U/L (15-37); Albumin 2.7 g/dL (3.4-5.0); Alkaline Phosphatase 87 U/L (46-116); Anion Gap 9.9 mmol/L (3-11); BUN 6 mg/dL (7-18); Bilirubin, Total 0.3 mg/dL (0.2-1.0); CO2 22.1 mmol/L (21.0-32.0); CREATININE 0.5 mg/dL (0.55-1.02); Calcium 8.6 mg/dL (8.5-10.1); Chloride 107 mmol/L (98-107); Estimated GFR 132.57 (mL/min/1.73m2); Glucose 97 mg/dL (74-106); Sodium 139 mmol/L (136-145)
--- NOTE | 2023-10-19 11:03 | W.OBNST ---
Date of service: 10/18/23 Time of Service: 11:30 NST Evaluation Reason for NST Reasons for Nonstress Test: OTHER, SEE COMMENT Reason for NST Other: headache Gestational Age Gestational Age in Weeks and Days: 33 Weeks and 6Days Test and Monitor Explained Test/Monitor Explained: Test Explained, Monitor Explained and Patient Verbalized Understanding Vital Signs Blood Pressure: 111/70 Pulse: 105 Temperature: 98.8 F Urine Results Urine Protein: Negative Urine Ketones: Negative Urine Glucose: Negative Urine Blood: Negative NST Information Date on Monitor: 10/18/23 Time on Monitor: 10:20 Date off Monitor: 10/18/23 Time off Monitor: 11:15 Total Time on Monitor: 55 NST Interventions: PO Hydration Contraction Frequency: 0 NST Evaluation Patient States Movement: Present FHR Baseline: 150 Variability: Moderate 6-25 bpm Accelerations: 15x15 Decelerations: None NST Results: Reactive Note Ultrasound Done: N/A. NST Note Note: HTN labs drawn and all nml, BP nml Pt feeling reassured, discharged to home Tylenol and Vistaril recommended for LOPEZ NST Reviewed and Verified by: Annabel Michelle
[2023-10-19 11:05] VITALS: BP 111/70; PULSE 105; TEMP 37.1
== END 2023-10-18 12:46 | disposition home or self-care (01) ==
LOC: BCD 09:43 → OBS 10:25
PROVIDERS: PCP Nurse Practitioner Family; Visit Provider Advanced Practice Midwife
DX: R51.9 Headache, unspecified; Z3A.33 33 weeks gestation of pregnancy; O09.293 Supervision of pregnancy with other poor reproductive or obstetric history, third trimester
CPT/HCPCS: 59025; 36415; 80053; 85027; 82565; 84156; G0378

== ENCOUNTER 2023-10-20 00:45 | Outpatient (RCR) | payer MEDICAID, SELFPAY ==
[2023-10-07 09:40] LABS: HGB 9.8 g/dL (11.2-15.7)
[2023-10-07] MEDS: IRON SUCROSE COMPLEX 200 MG in Normal Saline 100 ML 440 MG IVPB (09:56)
[2023-10-07] MEDS: Normal Saline Flush 10 ML SYR IVP (09:56)
== END 2023-10-30 23:59 | disposition home or self-care (01) ==
LOC: INF 00:45
PROVIDERS: PCP Nurse Practitioner Family; Visit Provider Advanced Practice Midwife
DX: O99.013 Anemia complicating pregnancy, third trimester (principal)
CPT/HCPCS: 36415; 96365; 85018; J1756

== ENCOUNTER 2023-10-20 07:17 | Outpatient (CLI) | payer MEDICAID, SELFPAY ==
[2023-10-20] VITALS (18 sets, daily range): BP systolic 78–206; BP diastolic 34–146; PULSE 84–139; RESP 18; TEMP 36.6–36.8; O2SAT 97–100
[2023-10-20] MEDS: Labetalol 100 MG/20 ML VIAL IVP (09:00)
--- NOTE | 2023-10-20 09:06 | W.PM.OBHPL1 ---
Date of service: 10/20/23 Time of Service: 09:06 Assessment and Plan Assessment and plan (1) Gestational hypertension: Status: Acute Assessment and plan: 1. Kylee arrived for NST due to complaint of severe LOPEZ for 3 days not controlled by tylenol or hydralazine given 2. Initial BP on arrival 192/123 and then repeat of 206/146. 3. BP status post Labetalol 20 mg IV 146/[address] Gandhi done, will begin Magnesium sulfate, Give 12mg IM Betamet, obtain GBS and do POCUS for presentation DAY and consult with [facility] for potential transfer. (2) History of pre-eclampsia in prior , currently : Status: Acute Assessment and plan: 1. Due to LOPEZ and severe range BP's, MD requests patient be transferred to [facility] for further evaluation and treatment 2. Senior Regulatory Affairs Specialist has contacted transfer line. YAYA OB-HPI Labor/Delivery History of Present Illness Reason for Visit: NST Chief Complaint: Other (severe headache and vomiting). FARHAD Calculator Estimated Delivery Date Method Current WG Current Estimate 11/30/23 Ultrasound #1 34w 1d Other Estimates 11/18/23 LMP (Certain) 35w 6d 11/26/23 Ultrasound #2 34w 5d History of Present Expected Delivery Route/Plan - CNM ( collab as indicated d/t surgical & hx pre-e) FOB/boyfriend - Dmitri Hui (third child) [facility] [place] Plan IOL after 38 wks unless indicated earlier Wants to labor in tub if circumstances will allow Varicella non-immune, offer vaccine Specific Issues/Plan 1. Gastric bypass 2020, lost 200 lbs, issues with dumping sx 1a. CBC, Fe, Ferritin, Ca+, Vit D level each trimester (per ACOG) 1b. BMI 35, will do QID testing for 1-2 wks instead of glucola test- all WNL, 1c. D/t dumping sx, repeat QID testing x2 wks at 26-28 wks- all WNL 2. Hx of severe Pre-E, start low dose ASA @ 12 wks, 2a. Per [facility] consult, IOL at 37 weeks not indicated unless signs of preeclampsia, 38 wks recommended, pt aware of plan. 3. cfDNA screen- low risk screen, female, declines CF/SMA screening 4. Accepts level 2 scan and MFM consult @ [facility] 4a. [facility] consult- serial growth US's at 28, 32, 36 wks, weekly NST's @ 32 wks, IOL @ 38 wks unless indicated earlier 4b. 28 week US DAY - 9.7, EFW 12 %ile. 4c. 31 wk scan: EFW 41st%, DAY 13, transverse lie 5. S/P cholecystectomy, gastric bypass, urachal repair, hernia repair 6. severe constipation - taking magnesium and colace 200 mg in am and requested a note to be able to caisson worker. 7. Anemia - Taking vitamin and vitamin D daily, weekly iron infusions scheduled Assessment: History Reviewed & Current Narrative: Kylee sent portal message to [facility] this morning complaining of severe LOPEZ and vomiting. States the medicine given to help with LOPEZ a couple days ago did not help. She had NST on 10/18 with normal BP and was given Hydralazine for LOPEZ. She had a reactive NST. Since that time she reports head ache has become more severe and she vomited most of 10/18 but did not call back. Today she had severe LOPEZ. BP on arrival 192/123 at 0847 and repeat was 206/146 at 0857 while IV was being placed. Labetalol 20 mg IV given. After labetalol BP 146/96 HR 136. Consult with done and will begin Magnesium Sulfate and continue to monitor BP and FHR and arrange for transfer to [facility] or [facility]. Review of Systems Constitutional Constitutional: Reports headache(s) Eyes Eyes: Reports other (denies visual disturbance) ENT Ears, Nose, Mouth, and Throat: Reports system reviewed and no additional complaints, except as documented and Reports headache(s) Cardiovascular Cardiovascular: Reports as per HPI Respiratory Respiratory: Reports as per HPI Gastrointestinal Gastrointestinal: Reports as per HPI Genitourinary Comments: No complaints Musculoskeletal Musculoskeletal: Reports system reviewed and no additional complaints, except as documented Integumentary/Breasts Skin/Breast: Reports system reviewed and no additional complaints, except as documented Neurologic Neurologic: Reports headache(s) Psychiatric Psychiatric: Reports anxiety Endocrine Endocrine: Reports system reviewed and no additional complaints, except as documented Hematologic/Lymphatic Hematologic/Lymphatic: Reports system reviewed and no additional complaints, except as documented and Reports as per HPI Allergic/Immunologic Allergic/Immunologic: Reports system reviewed and no additional complaints, except as documented PFSH All Active Problems (Updated 10/20/23 @ 09:31 by Akilah Schreiber CNM) Gestational hypertension (Acute) Anemia affecting (Acute) Flank pain in patient (Acute) Maternal varicella, non-immune (Acute) History of dumping syndrome (Acute) H/O gastric bypass (Acute) Attention deficit hyperactivity disorder (ADHD) (Acute) BMI 35.0-35.9,adult (Acute) History of pre-eclampsia in prior , currently (Acute) (Acute) Insomnia (Acute) Anxiety (Chronic 02/27/14) Medical History (Updated 10/20/23 @ 09:31 by Akilah Schreiber CNM) Dental abscess Abdominal pain GERD (gastroesophageal reflux disease) Endoscopy 10/05/19 Screening cholesterol level History of migraine High BMI BMI 54 Nonintractable headache (03/04/17) Diarrhea (01/17/17) After cholecystectomy Depressive disorder (02/27/14) Contraceptive surveillance (10/07/14) Elevated blood pressure reading (03/22/17) Hypertension Concussion (09/04/12) Candidiasis of breast (03/29/17) Wound abscess Surgical History (Updated 05/05/23 @ 10:51 by Annabel Michelle) exploration wound abscess umbilicus (11/19/15) Dr. Torres. umbilical infection drained, debrided and closed by secondary intention. 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 excision. Dr. Perry. Urachal sinus excsion. (06/11/15) Dr. Perry. Cholecystectomy (~06/2014) @ [facility], DR. TORRES. 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 Pets and animals: No Sexually active: Yes Do you think of yourself as: straight/heterosexual Current gender identity: female What is your relationship status?: living with partner How often do you talk on the phone with friends or family?: three or more times per week How often do you get together with friends or relatives?: once per week How often do you attend judaism or synagogue services?: decline to answer Do you belong to any clubs or organized social groups?: no Panel score (0-1 are the most socially isolated patients): 2 What type of physical activity do you participate in: walking Duration: < 15 minutes/day Frequency: 1-2 times per week Geovanna/Buddhism: Shinto Special geovanna needs: No Seatbelt use: always Helmet use: Yes Helmet use: always Drive intox or ride w/intox front end driver: No Do you feel safe at home: Yes Do you feel safe in your relationship?: Yes History History 4 Para 2 Hx # Term Pregnancies 1 Multiple births 0 Hx # Pregnancies 1 Ectopic pregnancies 0 AB induced 0 Hx Number of Living Children 2 AB spontaneous 1 Past Pregnancies Del. Date GA/Weeks # Preg Succ Route Wgt Sex Labor Lgth Anesthesia Location Prov Complic 03/17/17 37 No Yes vaginal 6 lb 2 oz Female [address] [place] [address] 07/03/18 8 No No 05/18/19 36 No Yes vaginal 6 lb 7 oz Female [facility] Delivery Date: 03/17/17 Last Updated by: Akilah Albarran CNM IOL at [facility] for pre-eclampsia and BMI, on Mag, epidural. [place] Delivery Date: 07/03/18 Last Updated by: Akilah Albarran CNM SAB at [facility] with D and C Delivery Date: 05/18/19 Last Updated by: Akilah Albarran CNM Referred to [facility] from [facility] due to BMI. IOL @ [facility] for severe pre-eclampsia, Mag, miso x2 then labor went fast, [place] Meds Allergies and Home Medications Allergies Allergy/AdvReac Type Severity Reaction Status Date / Time codeine phosphate Allergy Intermediate Skin Rash Verified 10/13/23 10:28 [From Tylenol-Codeine #3] hydrocodone Allergy Intermediate Nausea, Verified 10/13/23 10:28 rash Home Medications Medication Instructions Recorded Confirmed Type aspirin 81 mg tablet,delayed 81 mg PO DAILY #90 tabs 05/05/23 10/13/23 Rx release blood sugar diagnostic (FreeStyle #100 ea 05/05/23 10/13/23 Rx Lite Strips) blood-glucose meter (FreeStyle #1 ea 05/05/23 10/13/23 Rx Lite Meter kit) lancets 28 gauge (FreeStyle #100 ea 05/05/23 10/13/23 Rx Lancets) vitamin no.180-ferrous 1 tab PO DAILY #90 tabs 05/05/23 10/13/23 Rx fumarate 27 mg-folic acid 1 mg tablet ( Plus Vitamin-Mineral) cholecalciferol (vitamin D3) 125 125 mcg PO DAILY 05/20/23 10/13/23 History mcg (5,000 unit) capsule cyanocobalamin (vitamin B-12) 2,000 mcg PO DAILY 05/20/23 10/13/23 History 1,000 mcg capsule magnesium 250 mg tablet 250 mg PO DAILY 07/04/23 10/13/23 History docusate sodium 100 mg capsule 100 mg PO BID #60 caps 08/17/23 10/13/23 Rx (Colace) magnesium citrate,mag oxide 250 mg 250 mg PO DAILY #30 caps 08/17/23 10/13/23 Rx capsule pantoprazole 40 mg tablet,delayed 40 mg PO DAILY #30 tabs 09/12/23 10/13/23 Rx release (Protonix) ondansetron 8 mg disintegrating 8 mg PO Q8H #90 tabs 10/04/23 10/13/23 Rx tablet ondansetron 8 mg disintegrating 8 mg PO Q8H PRN 10/04/23 10/13/23 History tablet dextroamphetamine-amphetamine 20 20 mg PO BID #56 tabs 10/14/23 Rx mg tablet (Adderall) hydralazine 100 mg tablet 100 mg PO BID PRN for headache #10 10/18/23 Rx tabs tramadol 100 mg tablet 100 mg PO Q6H PRN pain #60 tabs 10/19/23 Rx Exam Physical Exam Vital signs: Pulse BP 139 H 146/96 H 10/20/23 09:03 10/20/23 09:03 Vital Signs Reviewed: Yes Constitutional Constitutional: moderate distress and obese Detailed Labor and Delivery Exam Lama Score: Cervical Points Exam 0 1 2 3 Dilation Closed 1-2cm 3-4 cm 5-6cm Effacement 0-30% 40-50% 60-70% 80% Consistency Firm Medium Soft Station -3 -2 -1,0 +1,+2 Position Posterior Mid Anterior Comments: VE deferred Fetus A Heart Rate Baseline: 130 Monitor Accelerations: 10 X 10 Monitor Decelerations: None Variability: Moderate (6-25 BPM) HEENT Exam HEENT Exam: Normal (no photophobia) Neck Exam Neck Exam: Normal Chest/Brest/Axilla Exam Chest Exam: Normal (tachycardia noted) Breast Exam Breast Exam: Not Done Respiratory Exam Respiratory Exam: Normal Cardiovascular Exam Cardiovascular Exam: Abnormal (tachycardia 130's is very anxious) Abdominal Exam Abdominal Exam: Normal (has had gastric bypass, redundant skin) Rectal Exam Rectal Exam: Not Done Exam Exam: Not Done Extremities Exam Extremities Exam: Abnormal (1 beat of clonus, neg for patellar hyperreflexia) Back/Spine/Pelvis Exam Back Exam: Normal Pelvis Adequate: Yes (from previous exam) Skin Exam Skin Exam: Normal Neurological Exam Neurological Exam: Abnormal (severe LOPEZ, clonus X 1 beat) Psychiatric Exam Psychiatric Exam: Normal (anxious and sad about current condition and need for transfer) Results Results Group Beta Strep: Done-Result Unknown Blood Type: O+ Rubella Status: Immune Varicella Immunity: Nonimmune Lab Results: cfDNA LR female, declined CF / SMA, UDS neg/ Syphilis neg/ Hep B&C neg/ HIV neg/ performed home BG monitoring early in that were normal range. A1c 5.5 on 09/08/2023 Risk Assessment Risk for Shoulder Dystocia Historical/Initial OB: POSITIVE FOR: Pre- BMI>30; NEGATIVE FOR: Pelvic Abnormality, Previous Shoulder Dystocia or Previous Macrosomia Risk for Pre-Eclampsia Date Initiated/Initials: pt to start @ 12 wks, jk Yes, if one or more: POSTIVE FOR: Hx Pre-E/Gest HTN and Chronic HTN; NEGATIVE FOR: Multiple Gestation, Pre-gestational DM, Renal Disease, Systemic Lupus or APA Syndrome Yes, if 2 or more: POSITIVE FOR: BMI>30; NEGATIVE FOR: Nulliparity, Age>= 35 yrs, >10yr btwn pregnancies, ethinicty, Mother/Sister w/ Pre-E or Previous IUGR Risk for Post- Hemorrhage Initial: NEGATIVE FOR: Multiple Gestation, Previous PPH, Known Clotting Deficiency, Grand Multiparity or Anticoagulation Risks Reviewed Risks Reviewed Upon Admission: Yes (increased risk for pre-eclampsia/eclampsia)
[2023-10-20 09:10] LABS: HGB 10.6 g/dL (11.2-15.7); MCH 27.5 pg (27.0-33.0); MCHC 32.1 % (32.0-36.0); MCV 86 fL (80-95); MPV 8.9 fL (8.0-11.0); Platelet Count 169 10^3/uL (130-400); RBC 3.85 10^6/uL (3.93-5.22); RDW 18.5 % (11.7-14.6); RDW-SD 57.1 fL; WBC 6.66 10^3/uL (4.4-10.8)
[2023-10-20 09:16] LABS: Source Nasal/Nares
[2023-10-20] MEDS: MAGNESIUM SULFATE 20 GM/500 ML BAG IV (09:17)
[2023-10-20 09:26] LABS: COMMENT (LAB VIEW ONLY) 83.58 mg/dL; PROTEIN 13.8 mg/dL; Prot/Crea Ur Ratio 0.16
--- NOTE | 2023-10-20 09:28 | HPE_ITS ---
Date of service: 10/20/23 Time of Service: 09:29 OB-HPI Labor/Delivery History of Present Illness Reason for Visit: NST Chief Complaint: Signs/Symptoms Gestational HTN , Associated Signs and Symptoms of GestationalHTN: Headache. FARHAD Calculator Estimated Delivery Date Method Current WG Current Estimate 11/30/23 Ultrasound #1 34w 1d Other Estimates 11/18/23 LMP (Certain) 35w 6d 11/26/23 Ultrasound #2 34w 5d History of Present Expected Delivery Route/Plan - CNM ( collab as indicated d/t surgical & hx pre-e) FOB/boyfriend - Dmitri Hui (third child) BG Rowyn Plan IOL after 38 wks unless indicated earlier Wants to labor in tub if circumstances will allow Varicella non-immune, offer vaccine Specific Issues/Plan 1. Gastric bypass 2020, lost 200 lbs, issues with dumping sx 1a. CBC, Fe, Ferritin, Ca+, Vit D level each trimester (per ACOG) 1b. BMI 35, will do QID testing for 1-2 wks instead of glucola test- all WNL, 1c. D/t dumping sx, repeat QID testing x2 wks at 26-28 wks- all WNL 2. Hx of severe Pre-E, start low dose ASA @ 12 wks, 2a. Per [facility] [place] consult, IOL at 37 weeks not indicated unless signs of preeclampsia, 38 wks recommended, pt aware of plan. 3. cfDNA screen- low risk screen, female, declines CF/SMA screening 4. Accepts level 2 scan and MFM consult @ [facility] [place] 4a. [facility] [place] consult- serial growth US's at 28, 32, 36 wks, weekly NST's @ 32 wks, IOL @ 38 wks unless indicated earlier 4b. 28 week US DAY - 9.7, EFW 12 %ile. 4c. 31 wk scan: EFW 41st%, DAY 13, transverse lie 5. S/P cholecystectomy, gastric bypass, urachal repair, hernia repair 6. 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 7. Anemia - Taking vitamin and vitamin D daily, weekly iron infusions scheduled PFSH All Active Problems (Updated 10/20/23 @ 09:31 by Akilah Schreiber CNM) Gestational hypertension (Acute) Anemia affecting (Acute) Flank pain in patient (Acute) Maternal varicella, non-immune (Acute) History of dumping syndrome (Acute) Attention deficit hyperactivity disorder (ADHD) (Acute) BMI 35.0-35.9,adult (Acute) History of pre-eclampsia in prior , currently (Acute) H/O gastric bypass (Acute) (Acute) Insomnia (Acute) Anxiety (Chronic 02/27/14) Medical History (Updated 10/20/23 @ 09:31 by Akilah Schreiber CNM) Dental abscess Abdominal pain GERD (gastroesophageal reflux disease) Endoscopy 10/05/19 Screening cholesterol level Hypertension History of migraine High BMI BMI 54 Nonintractable headache (03/04/17) Elevated blood pressure reading (03/22/17) Diarrhea (01/17/17) After cholecystectomy Depressive disorder (02/27/14) Contraceptive surveillance (10/07/14) Concussion (09/04/12) Candidiasis of breast (03/29/17) Wound abscess Surgical History (Updated 05/05/23 @ 10:51 by Annabel Michelle) exploration wound abscess umbilicus (11/19/15) Dr. Torres. umbilical infection drained, debrided and closed by secondary intention. 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 excision. Dr. Perry. Urachal sinus excsion. (06/11/15) Dr. Perry. Cholecystectomy (~06/2014) @ [facility], DR. TORRES. 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 Pets and animals: No Sexually active: Yes Do you think of yourself as: straight/heterosexual Current gender identity: female What is your relationship status?: living with partner How often do you talk on the phone with friends or family?: three or more times per week How often do you get together with friends or relatives?: once per week How often do you attend zoroastrianism or yarsani services?: decline to answer Do you belong to any clubs or organized social groups?: no Panel score (0-1 are the most socially isolated patients): 2 What type of physical activity do you participate in: walking Duration: < 15 minutes/day Frequency: 1-2 times per week Geovanna/Catholic: Advent Special geovanna needs: No Seatbelt use: always Helmet use: Yes Helmet use: always Drive intox or ride w/intox 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 Date GA/Weeks # Preg Succ Route Wgt Sex Labor Lgth Anesth esia Location Prov Complic 03/17/17 37 No Yes vaginal 6 lb 2 oz Female 12 [place] [facility] [place]/03/18 8 No No 05/18/19 36 No Yes vaginal 6 lb 7 oz Female [facility] [place] Delivery Date: 03/17/17 Last Updated by: Akilah Albarran CNM IOL at [facility] [place] for pre-eclampsia and BMI, on Mag, epidural. [place] Delivery Date: 07/03/18 Last Updated by: Akilah Albarran CNM SAB at [facility] with D and C Delivery Date: 05/18/19 Last Updated by: Akilah Albarran CNM Referred to [facility] [place] from [facility] due to BMI. IOL @ [facility] [place] for severe pre-eclampsia, Mag, miso x2 then labor went fast, [place] Meds Allergies and Home Medications Allergies Allergy/AdvReac Type Severity Reaction Status Date / Time codeine phosphate Allergy Intermediate Skin Rash Verified 10/13/23 10:28 [From Tylenol-Codeine #3] hydrocodone Allergy Intermediate Nausea, Verified 10/13/23 10:28 rash Home Medications Medication Instructions Recorded Confirmed Type aspirin 81 mg tablet,delayed 81 mg PO DAILY #90 tabs 05/05/23 10/13/23 Rx release blood sugar diagnostic (FreeStyle #100 ea 05/05/23 10/13/23 Rx Lite Strips) blood-glucose meter (FreeStyle #1 ea 05/05/23 10/13/23 Rx Lite Meter kit) lancets 28 gauge (FreeStyle #100 ea 05/05/23 10/13/23 Rx Lancets) vitamin no.180-ferrous 1 tab PO DAILY #90 tabs 05/05/23 10/13/23 Rx fumarate 27 mg-folic acid 1 mg tablet ( Plus Vitamin-Mineral) cholecalciferol (vitamin D3) 125 125 mcg PO DAILY 05/20/23 10/13/23 History mcg (5,000 unit) capsule cyanocobalamin (vitamin B-12) 2,000 mcg PO DAILY 05/20/23 10/13/23 History 1,000 mcg capsule magnesium 250 mg tablet 250 mg PO DAILY 07/04/23 10/13/23 History docusate sodium 100 mg capsule 100 mg PO BID #60 caps 08/17/23 10/13/23 Rx (Colace) magnesium citrate,mag oxide 250 mg 250 mg PO DAILY #30 caps 08/17/23 10/13/23 Rx capsule pantoprazole 40 mg tablet,delayed 40 mg PO DAILY #30 tabs 09/12/23 10/13/23 Rx release (Protonix) ondansetron 8 mg disintegrating 8 mg PO Q8H #90 tabs 10/04/23 10/13/23 Rx tablet ondansetron 8 mg disintegrating 8 mg PO Q8H PRN 10/04/23 10/13/23 History tablet dextroamphetamine-amphetamine 20 20 mg PO BID #56 tabs 10/14/23 Rx mg tablet (Adderall) hydralazine 100 mg tablet 100 mg PO BID PRN for headache #10 10/18/23 Rx tabs tramadol 100 mg tablet 100 mg PO Q6H PRN pain #60 tabs 10/19/23 Rx Exam Physical Exam Vital signs: Temp Pulse Resp BP Pulse Ox 97.9 F 98 H 18 192/123 H 100 10/20/23 09:06 10/20/23 09:06 10/20/23 09:06 10/20/23 09:06 10/20/23 09:06 Detailed Labor and Delivery Exam Lama Score: Cervical Points Exam 0 1 2 3 Dilation Closed 1-2cm 3-4 cm 5-6cm Effacement 0-30% 40-50% 60-70% 80% Consistency Firm Medium Soft Station -3 -2 -1,0 +1,+2 Position Posterior Mid Anterior Results Abnormal Lab Findings: Abnormal Labs 10/20/23 09:00 RBC 3.85 L Hgb 10.6 L Hct 33.0 L RDW 18.5 H Risk Assessment Risk for Shoulder Dystocia Historical/Initial OB: POSITIVE FOR: Pre- BMI>30; NEGATIVE FOR: Pelvic Abnormality, Previous Shoulder Dystocia or Previous Macrosomia Risk for Pre-Eclampsia Date Initiated/Initials: pt to start @ 12 wks, jk Yes, if one or more: POSTIVE FOR: Hx Pre-E/Gest HTN and Chronic HTN; NEGATIVE FOR: Multiple Gestation, Pre-gestational DM, Renal Disease, Systemic Lupus or APA Syndrome Yes, if 2 or more: POSITIVE FOR: BMI>30; NEGATIVE FOR: Nulliparity, Age>= 35 yrs, >10yr btwn pregnancies, ethinicty, Mother/Sister w/ Pre-E or Previous IUGR Risk for Post- Hemorrhage Initial: NEGATIVE FOR: Multiple Gestation, Previous PPH, Known Clotting Deficiency, Grand Multiparity or Anticoagulation
[2023-10-20 09:36] LABS: ALT 21 U/L (14-59); AST 17 U/L (15-37); Albumin 2.7 g/dL (3.4-5.0); Alkaline Phosphatase 110 U/L (46-116); BUN 8 mg/dL (7-18); Bilirubin, Total 0.27 mg/dL (0.2-1.0); CREATININE 0.7 mg/dL (0.55-1.02); Calcium 8.4 mg/dL (8.5-10.1); Chloride 104 mmol/L (98-107); Estimated GFR 122.25 (mL/min/1.73m2); Glucose 134 mg/dL (74-106); Potassium 3.3 mmol/L (3.5-5.1); Sodium 138 mmol/L (136-145)
[2023-10-20] MEDS: Betamet Acet/Betamet Na Ph Inj. 30 MG/5 ML 12 MG IM (09:42)
[2023-10-20 09:49] LABS: COVID-19 PCR Negative (Negative)
--- NOTE | 2023-10-20 10:09 | OBCE_ITS ---
Date of service: 10/20/23 Time of Service: 10:09 Assessment and Plan Assessment and plan (1) History of pre-eclampsia in prior , currently : Status: Acute (2) Gestational hypertension: Status: Acute Assessment and plan: Pt evaluated and plan made in conjuntion with Sinai Schreiber CNM Pt received 1 dose of 20mg IV labetalol with improvement in the BPs to normal range. Magnesium sulfate started for seizure prevention given her severe range BPs and h/o PEC. Labs drawn and were normal including protein creatinine ratio. Pt received betamethasone for lung maturity. Bedside sono confirmed cephalic presentation. GBS swab collected and sent with her. Pt to be transferred to [facility] [place] - She should be treated en route with 20mg of Labetalol IV for BP >160/110 if persistently elevated with a repeat BP 10min after the first. History of Present Illness History of Present Illness Chief Complaint: Severe headache Narrative: Pt came in this am due to reporting a persistent headache the past 3 days. She was seen 2 days ago with a normal BP. Yesterday she was vomiting all day and the headache worsened. She is no longer as nauseous today but her headache persists. No visual sxms. She does report mild upper abdominal discomfort today. No ctxs, loss of fluid or bleeding. She has been feeling good movement. Review of Systems Constitutional Constitutional: Reports system reviewed and no additional complaints, except as documented Genitourinary Genitourinary: Reports system reviewed and no additional complaints, except as documented Musculoskeletal Comments: No regular contractions PFSH All Active Problems (Updated 10/20/23 @ 10:16 by Anamika Gandhi MD) Gestational hypertension (Acute) Anemia affecting (Acute) Flank pain in patient (Acute) Maternal varicella, non-immune (Acute) Attention deficit hyperactivity disorder (ADHD) (Acute) BMI 35.0-35.9,adult (Acute) History of pre-eclampsia in prior , currently (Acute) (Acute) Insomnia (Acute) Anxiety (Chronic 02/27/14) Medical History (Updated 10/20/23 @ 10:16 by Anamika Gandhi MD) History of dumping syndrome Dental abscess GERD (gastroesophageal reflux disease) Endoscopy 10/05/19 History of migraine Nonintractable headache (03/04/17) Diarrhea (01/17/17) After cholecystectomy Depressive disorder (02/27/14) Concussion (09/04/12) Surgical History (Updated 10/20/23 @ 10:16 by Anamika Gandhi MD) H/O gastric bypass exploration wound abscess umbilicus (11/19/15) Dr. Torres. umbilical infection drained, debrided and closed by secondary intention. 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 excision. Dr. Perry. Urachal sinus excsion. (06/11/15) Dr. Perry. Cholecystectomy (~06/2014) @ [facility], DR. TORRES. 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 Pets and animals: No Sexually active: Yes Do you think of yourself as: straight/heterosexual Current gender identity: female What is your relationship status?: living with partner How often do you talk on the phone with friends or family?: three or more times per week How often do you get together with friends or relatives?: once per week How often do you attend religious or christianity services?: decline to answer Do you belong to any clubs or organized social groups?: no Panel score (0-1 are the most socially isolated patients): 2 What type of physical activity do you participate in: walking Duration: < 15 minutes/day Frequency: 1-2 times per week Geovanna/Cheondoism: Baptism Special geovanna needs: No Seatbelt use: always Helmet use: Yes Helmet use: always Drive intox 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 Date GA/Weeks # Preg Succ Route Wgt Sex Labor Lgth Anesth esia Location Prov Complic 03/17/17 37 No Yes vaginal 6 lb 2 oz Female 12 regional D [facility] [place] 07/03/18 8 No No 05/18/19 36 No Yes vaginal 6 lb 7 oz Female [facility] [place] Delivery Date: 03/17/17 Last Updated by: Akilah Albarran CNM IOL at [facility] [place] for pre-eclampsia and BMI, on Mag, epidural. [place] Delivery Date: 07/03/18 Last Updated by: Akilah Albarran CNM SAB at [facility] with D and C Delivery Date: 05/18/19 Last Updated by: Akilah Albarran CNM Referred to [facility] [place] from [facility] due to BMI. IOL @ [facility] [place] for severe pre-eclampsia, Mag, miso x2 then labor went fast, [place] Exam Narrative Exam Narrative: Pt with puffy eyes, looks very tired Const General: cooperative, well developed and acute distress mild GI Other: Abdomen gravid, soft, mild RUQ tenderness to palpation Extrem Other: 1+clonus b/l Results Last Vital Signs Temp 97.9 F 10/20/23 09:06 Pulse 85 10/20/23 09:48 Resp 18 10/20/23 09:06 BP 113/66 10/20/23 09:48 Pulse Ox 100 10/20/23 09:06 Labs 10/20/23 09:00 10/20/23 09:00 Labs: Laboratory Results - last 24 hr 10/20/23 10/20/23 08:45 09:00 WBC 6.66 RBC 3.85 L Hgb 10.6 L Hct 33.0 L MCV 86 MCH 27.5 MCHC 32.1 RDW 18.5 H Plt Count 169 MPV 8.9 Sodium 138 Potassium 3.3 L Chloride 104 Carbon Dioxide 21.0 Anion Gap 13.0 H BUN 8 Creatinine 0.7 Est GFR (CKD-EPI 2020) 122.25 Glucose 134 H Calcium 8.4 L Total Bilirubin 0.27 AST 17 ALT 21 Alkaline Phosphatase 110 Total Protein 6.0 L Albumin 2.7 L Ur Random Creatinine 83.58 U Random Total Protein 13.8 U [place] Prot/Creat Ratio 0.16 COVID-19 Source Nasal/Nares SARS-CoV-2 (PCR) Negative Influenza Type A (PCR) Cancelled Influenza Type B (PCR) Cancelled RSV (PCR) Cancelled WW Pocus Exam Exam testing Date/Time of Exam: Date of exam: 10/20/2023 Time of exam: 10:23 am FARHAD Calculator 2 Estimated Delivery Date Method Current WG Current Estimate 11/30/23 Ultrasound #1 34w 1d Other Estimates 11/18/23 LMP (Certain) 35w 6d 11/26/23 Ultrasound #2 34w 5d position Gestational age (weeks): 34 Presentation: Vertex Coding for Transabdominal exam: Complete exam
--- NOTE | 2023-10-20 12:55 | W.OBNST ---
Date of service: 10/20/23 Time of Service: 10:30 NST Evaluation Reason for NST Reasons for Nonstress Test: GESTATIONAL HYPERTENSION Gestational Age Gestational Age in Weeks and Days: 34 Weeks and 1Days Test and Monitor Explained Test/Monitor Explained: Test Explained, Monitor Explained and Patient Verbalized Understanding Vital Signs Blood Pressure: 192/123 Pulse: 85 Temperature: 98.2 F NST Information Date on Monitor: 10/20/23 Time on Monitor: 08:45 Date off Monitor: 10/20/23 Time off Monitor: 10:33 Total Time on Monitor: 108 NST Interventions: IV Fluids, Notify Provider and Other Contraction Frequency: 0 NST Evaluation Patient States Movement: Present FHR Baseline: 135 Variability: Moderate 6-25 bpm Decelerations: None NST Results: Questionable NST Results Other: Pt admitted and transferred to [facility] [place] [place], HR category one throughout Note Ultrasound Done: Other (see separate note by Dr. Gandhi with POCUS results). NST Note Note: NST is reactive and reassuring. See separate documentation H&P. YAYA NST Reviewed and Verified by: Akilah Schreiber
== END 2023-10-20 10:50 ==
LOC: BCD 07:20 → OBS 08:21
PROVIDERS: PCP Nurse Practitioner Family; Visit Provider Advanced Practice Midwife
DX: O13.3 Gestational [pregnancy-induced] hypertension without significant proteinuria, third trimester (principal); O09.293 Supervision of pregnancy with other poor reproductive or obstetric history, third trimester; Z3A.34 34 weeks gestation of pregnancy
CPT/HCPCS: 59025; 76815; 36415; 80053; 85027; 87635; 87637; 82565; 84156; 87081; J0702; J1920; J3475

== ENCOUNTER 2024-06-20 01:22 | Outpatient (CLI) | payer MEDICAID, SELFPAY ==
--- NOTE | 2024-06-20 | DI.CT_ITS ---
Exam(s) CT NECK W EXAM: CT NECK W INDICATION: Localized swelling, mass, lump in neck, R22.1. COMPARISON: CT CT HEAD WO from 06/20/2024 TECHNIQUE: FINDINGS: VISUALIZED PARANASAL SINUSES: Unremarkable. NASOPHARYNX: Unremarkable ORODENTAL: Unremarkable. OROPHARYNX: Unremarkable. No masses evident. HYPOPHARYNX: Unremarkable. Valleculae and epiglottis and aryepiglottic folds appear normal. VOCAL CORDS: Unremarkable. No masses evident. Subglottic airway appears unremarkable. THYROID GLAND: Unremarkable. Normal size and no obvious nodules. SALIVARY GLANDS: Unremarkable. No significant findings in the parotid and submandibular glands. LYMPH NODES: There is no adenopathy evident in the neck and supraclavicular regions. OTHER: VISUALIZED LUNG APICES: No significant findings. IMPRESSION: 1. No significant findings on this contrast infused CT scan of the soft tissues of the neck. RADIATION DOSE DELIVERED: 1,192.54mGy.cm Total DLP DATA REPOSITORY: All CT scans at this facility are submitted to the National Radiology Data Registry (NRDR) Dose Index Registry (DIR) with the [employer] (ACR). RADIATION OPTIMIZATION: All CT scans at this facility use at least one of these dose optimization te chniques: automated exposure control; mA and/or kV adjustment per patient size (includes targeted exa ms where dose is matched to clinical indication); or iterative reconstruction.
--- NOTE | 2024-06-20 | DI.CT_ITS ---
Exam(s) CT HEAD WO EXAM: CT HEAD WO CLINICAL HISTORY: Migraine wo status migrainosus, not intractable, unspecified type-G43.909. TECHNIQUE: Imaging Protocol: Axial computed tomography images with coronal and sagittal reformatted images were created and reviewed COMPARISON: No exams were available for comparison FINDINGS: There are no skull fractures. There is no fluid in the visualized paranasal sinuses. There is no evidence of intracranial hemorrhage, mass effect, or shift of midline structures. There are no extra-axial fluid collections. The ventricles are not enlarged or shifted and there is no blo od within the ventricular system nor within the basal cisterns. IMPRESSION: No acute intracranial findings on this noninfused CT scan of the brain. RADIATION DOSE DELIVERED: 1,192.54mGy.cm Total DLP DATA REPOSITORY: All CT scans at this facility are submitted to the National Radiology Data Registry (NRDR) Dose Index Registry (DIR) with the [employer] (ACR). RADIATION OPTIMIZATION: All CT scans at this facility use at least one of these dose optimization te chniques: automated exposure control; mA and/or kV adjustment per patient size (includes targeted exa ms where dose is matched to clinical indication); or iterative reconstruction.
[2024-06-20] MEDS: Normal Saline - Diluent 50 ML VIAL IJ (15:18)
[2024-06-20] MEDS: Omnipaque 350 MG/ML 100 ML BTL IJ (15:18)
== END 2024-06-20 01:42 ==
PROVIDERS: Visit Provider Nurse Practitioner Family
DX: G43.909 Migraine, unspecified, not intractable, without status migrainosus (principal); R22.1 Localized swelling, mass and lump, neck
CPT/HCPCS: 70491; 70450; J3490

== ENCOUNTER 2024-07-02 00:22 | Emergency (ER) | payer MEDICAID, SELFPAY ==
[2024-07-02] VITALS (34 sets, daily range): BP systolic 103–176; BP diastolic 54–137; PULSE 57–109; RESP 15–25; TEMP 35.8–36.8; O2SAT 100
--- NOTE | 2024-07-02 00:15 | RT.EKG_ITS ---
APPROVED REPORT Exam: Resting ECG Reason for Exam: feeling dizzy Patient Location: E HR:94 bpm ECG Measurements Heart Rate 94 AXIS WA 124 P 46 QRSd 89 QRS -21 QT 359 T 8 QTc 450 Conclusion Sinus rhythm...normal P axis, V-rate 60- 99 I have reviewed and interpreted ECG and agree with software generated interpretation.
--- NOTE | 2024-07-02 00:45 | DI.CT_ITS ---
Exam(s) CT BRAIN NECK CTA EXAM: CT BRAIN NECK CTA CLINICAL HISTORY: worst LOPEZ of life, right frontal. TECHNIQUE: Imaging Protocol: Axial CT angiography was performed with multi-slice acquisition and mu lti-planar and/or 3D reconstructions. CONTRAST MATERIAL: Intravenous: Omnipaque 350 Contrast volume:70 mL COMPARISON: CT CT NECK W from 06/20/[address] CERVICAL SPINE RECONS from 07/02/2024 FINDINGS: CTA Neck W: Aortic arch anatomy: The aortic arch anatomy is conventional and there is no significant stenosis at the origin of the great vessels off of the aortic arch. No intimal flap evident. Anterior circulation: Both common carotid arteries ascend with normal luminal diameters. At the level the carotid bulbs and proximal internal carotid arteries there is minimal plaque without hemodynamically significant stenosis evident. Posterior circulation: Both vertebral arteries originate in conventional fashion off of the subclavian arteries and there is no obvious stenosis at the origin of the vertebral arteries. Both vertebral arteries exhibit normal luminal diameters within the foramen transversarium. No significant stenosis, thrombosis, nor dissection of these vessels Both vertebral arteries contribute to the formation of the basilar artery at the skull base. CTA Brain W: Anterior circulation: Both internal carotid arteries are patent in the skull base-carotid canals as well as within the cave rnous sinuses. The supraclinoid aspects of the ICAs are patent. Both A1 segments are patent as are the anterior cer ebral arteries and there is no evidence of aneurysm at the level of the anterior communicating artery . Both middle cerebral arteries are patent with no evidence of significant stenosis nor intraluminal th rombus. There also no aneurysms of these vessels. Posterior circulation: The basilar artery ascends in the midline. Distally it gives off patent bilateral superior cerebella r arteries. Above this level the basilar artery terminates as patent bilateral posterior cerebral arteries. There is a posterior communicating artery on right side of the [id number]. There is no evidence of aneurysm at the tip of the basilar artery nor elsewhere in the [id number] is. CT BRAIN: There is no evidence of intracranial hemorrhage, mass effect, or shift of midline structures. There are no extra-axial fluid collections. Ventricles are not enlarged or shifted. There are no ring enh ancing lesions in the brain and no abnormal meningeal enhancement. Pituitary gland is small; confined to the inferior aspect of the sella turcica. IMPRESSION: 1. Patent carotid arteries in the neck. No hemodynamically significant stenosis. 2. Patent vertebral arteries. 3. Patent intracranial arteries. No evidence of aneurysm nor vascular malformation 4. Empty sella syndrome incidentally noted. RADIATION DOSE DELIVERED: 2,336.07mGy.cm Total DLP DATA REPOSITORY: All CT scans at this facility are submitted to the National Radiology Data Registry (NRDR) Dose Index Registry (DIR) with the [employer] (ACR). RADIATION OPTIMIZATION: All CT scans at this facility use at least one of these dose optimization te chniques: automated exposure control; mA and/or kV adjustment per patient size (includes targeted exa ms where dose is matched to clinical indication); or iterative reconstruction.
[2024-07-02 00:56] LABS: Abs Immature Grans 0.02 10^3/uL (0.0-0.06); Absolute Basophil Count 0.04 10^3/uL (0.0-0.2); Absolute Eosinophil Count 0.07 10^3/uL (0.0-0.7); Absolute Lymphocyte Count 2.51 10^3/uL (1.2-3.4); Absolute Monocyte Count 0.37 10^3/uL (0.1-0.8); Absolute Neutrophil Count 3.07 10^3/uL (1.2-6.7); Basophils % 0.7 %; Eosinophils % 1.2 %; HCT 37.5 % (36.0-46.0); HGB 12.2 g/dL (11.2-15.7); Immature Grans % 0.3 %; Lymphocytes % 41.3 %; MCH 27.3 pg (27.0-33.0); MCHC 32.5 % (32.0-36.0); MCV 84 fL (80-95); MPV 9.3 fL (8.0-11.0); Monocytes % 6.1 %; Neutrophils % 50.4 %; Platelet Count 193 10^3/uL (130-400); RBC 4.47 10^6/uL (3.93-5.22); RDW 13.3 % (11.7-14.6); WBC 6.08 10^3/uL (4.4-10.8)
[2024-07-02] MEDS: methylPREDNISolone SUCC 125 MG VIAL IVP (00:56)
[2024-07-02] MEDS: diphenhydrAMINE 50 MG/ML VIAL IVP (00:56)
[2024-07-02] MEDS: Lactated Ringers 1,000 ML 1000 ML IV (00:56)
[2024-07-02] MEDS: Prochlorperazine 10 MG/2 ML VIAL IVP (00:57)
--- NOTE | 2024-07-02 00:57 | ED.GENADUL_ITS ---
Discharge Plan Disposition Patient Disposition: Home Condition: Good Discharge Details Clinical Impression: Headache, migraine Primary Care Provider: Roberto Fernandes ED Provider: Jaret Akbar Home Meds and New Rx's Prescriptions: No Action cyanocobalamin (vitamin B-12) 1,000 mcg capsule 2,000 mcg PO DAILY cholecalciferol (vitamin D3) 125 mcg (5,000 unit) capsule 125 mcg PO DAILY mirtazapine 7.5 mg tablet 7.5 mg PO QHS Qty: 90 0RF docusate sodium [Colace] 100 mg capsule 100 mg PO BID Qty: 60 5RF triamcinolone acetonide 0.1 % cream 1 applic topical BID Qty: 80 2RF buspirone 10 mg tablet 10 mg PO BID Qty: 60 0RF dextroamphetamine-amphetamine [Adderall] 20 mg tablet 20 mg PO BID MDD 20mg Qty: 56 0RF Rx Instructions: Take 20mg in AM and 20mg in early afternoon. topiramate 25 mg tablet 50 mg PO HS Patient Comments: TAKE ONE TABLET BY MOUTH AT BEDTIME FOR 7 DAYS IF TOLERATED TAKE 2 TABLETS AT BEDTIME prochlorperazine maleate 10 mg tablet 10 mg PO TID PRN Patient Comments: TAKE ONE TABLET BY MOUTH THREE TIMES A DAY magnesium oxide 400 mg (241.3 mg magnesium) tablet 400 mg PO DAILY Patient Comments: TAKE ONE TABLET BY MOUTH EVERY DAY tramadol 100 mg tablet 50 mg PO BID Patient Comments: TAKE ONE TABLET BY MOUTH EVERY 12 HOURS Discharge Instructions Instructions: Headache, Adult ED Additional Instructions: At this time your CT imaging shows no evidence of significant bleed, tumor, or aneurysm. I suspect your symptoms are secondary to a migraine. Please stay well-hydrated, avoid caffeine and nitrates. Take Tylenol as needed for pain. If you notice any worsening of your symptoms, or any new symptoms such as vomiting, diarrhea, fever, chills, shortness of breath, chest pain, numbness, weakness, or fainting , please return immediately to the emergency department for reevaluation. Please follow up with your primary care provider as soon as possible for reassessment and reevaluation. As always, it was a pleasure participating in your medical care today. Referrals: Roberto Fernandes, CLINIC CHARGE NURSE [Primary Care Provider] - HPI General Date/Time Provider Initiated Documentation: 03/03/25 00:33 . HPI Narrative: This is a pleasant 29-year-old female with a past medical history of migraines, gastric bypass, Implanon device for control, cholecystectomy, who presents today for headache. Patient states that at 9 PM she had a sudden onset severe headache in the front right aspect of her head. It was severe and sharp in nature. It slowly got slightly better over the next hour or so but has otherwise continued throughout the evening. While she has had headaches before, she states that she has never had 1 that is felt like this, or has been so severe. This evening about an hour or so ago, while her headache was continuing she went to get a shower. She did have 2 episodes of syncope while trying to stand up and get in the shower. Her significant other was there with her, and caught her. The 2 episodes happened in succession. She does admit to having these syncopal episodes frequently with her headaches. She admits to mild vision changes which she describes as blurry vision. Her symptoms are made worse with light and loud noise. These appear to be consistent with her other headaches. She did take Tylenol/Excedrin earlier in the evening, but this is not improved her symptoms. She denies any numbness or tingling. No vomiting or diarrhea. No fever or chills. No neck pain or stiffness. Of note the patient did have a noncontrasted CT scan of her head about 5 days ago. No angiography though. Related Data Home Medications ?Medication ?Instructions ?Recorded ?Confirmed cholecalciferol (vitamin D3) 125 125 mcg PO DAILY 05/20/23 07/02/24 mcg (5,000 unit) capsule cyanocobalamin (vitamin B-12) 2,000 mcg PO DAILY 05/20/23 07/02/24 1,000 mcg capsule docusate sodium 100 mg capsule 100 mg PO BID #60 caps 08/17/23 07/02/24 (Colace) triamcinolone acetonide 0.1 % 1 applic topical BID #80 grams 03/19/24 07/02/24 topical cream mirtazapine 7.5 mg tablet 7.5 mg PO QHS #90 tabs 04/11/24 07/02/24 buspirone 10 mg tablet 10 mg PO BID #60 tabs 04/13/24 07/02/24 dextroamphetamine-amphetamine 20 20 mg PO BID #56 tabs 05/09/24 07/02/24 mg tablet (Adderall) magnesium oxide 400 mg (241.3 mg 400 mg PO DAILY 07/02/24 07/02/24 magnesium) tablet prochlorperazine maleate 10 mg 10 mg PO TID PRN 07/02/24 07/02/24 tablet topiramate 25 mg tablet 50 mg PO HS 07/02/24 07/02/24 tramadol 100 mg tablet 50 mg PO BID 07/02/24 07/02/24 Previous Rx's ?Medication ?Instructions ?Recorded docusate sodium 100 mg capsule 100 mg PO BID #60 caps 08/17/23 (Colace) triamcinolone acetonide 0.1 % 1 applic topical BID #80 grams 03/19/24 topical cream mirtazapine 7.5 mg tablet 7.5 mg PO QHS #90 tabs 04/11/24 buspirone 10 mg tablet 10 mg PO BID #60 tabs 04/13/24 dextroamphetamine-amphetamine 20 20 mg PO BID #56 tabs 05/09/24 mg tablet (Adderall) Allergies Allergy/AdvReac Type Severity Reaction Status Date / Time codeine phosphate (From Allergy Intermediate Skin Rash Verified 04/11/24 11:42 Tylenol-Codeine #3) hydrocodone Allergy Intermediate Nausea, Verified 04/11/24 11:42 rash General Stated Complaint: Dizzy/Sync BOGDAN: 3 Exam Narrative Exam Narrative: 1.Const: Well-nourished, Well-developed, appearing stated age 2.Eyes: PERRL, no conjunctival injection, and symmetrical lids. 3.ENT: Atraumatic external nose and ears. Dry MM. Neck: Symmetric, trachea midline, No thyromegaly. Patient demonstrates good movement of cervical neck. There is no nuchal rigidity, no nuchal tenderness. Patient is able to flex the neck without any difficulty or significant pain. Negative Kernig's and Brudzinski sign. 4.CVS: +S1/S2, Peripheral pulses 2+ and equal in all extremities. Brisk capillary refill in all extremities. 5.RESP: Unlabored respiratory effort. Clear to auscultation bilaterally. No wheezes rales or rhonchi 6.GI: Soft, Nontender/Nondistended, No hepatosplenomegaly. No guarding or rebound. 7.MSK: Normocephalic/Atraumatic, Extremities w/o deformity or ttp No cyanosis or clubbing, Normal movement of all extremities 8.Skin: Warm, Dry. No rashes or lesions. 9.Neuro: medical bill processor II-XII grossly intact. Sensation grossly intact, no focal neurologic deficits. All 6 cardinal planes of vision are fully intact. No evidence of rotatory or vertical nystagmus. The patient demonstrated a normal [id number], good dexterity. There was no evidence of dysdiadochokinesia. Patient was able to ambulate without difficulty. There was no wide-based gait. Romberg testing was normal. Kgcd-nd-xjci testing was normal. Sensation was intact bilaterally as well as muscle strength bilaterally for all extremities. Patient was able to verbalize butter cup with no slurring, or miss pronunciation. 10.Psych: (AAO) x3. Appropriate mood and affect Course Vital Signs Vital signs: Vital Signs Temperature 35.8 C L 07/02/24 00:24 Pulse 94 H 07/02/24 00:24 Respiratory Rate 18 07/02/24 00:24 Blood Pressure 160/104 H 07/02/24 00:24 Pulse Oximetry 100 07/02/24 00:24 Temperature 35.8 C L 07/02/24 00:24 Temperature Source Tympanic 07/02/24 00:24 Pulse 94 H 07/02/24 00:24 Respiratory Rate 16 07/02/24 00:29 Respiratory Effort Normal, Non-Labored 07/02/24 00:29 Respiratory Depth Normal 07/02/24 00:29 Respiratory Pattern Normal 07/02/24 00:29 Blood Pressure 160/104 H 07/02/24 00:24 Blood Pressure Position Sitting 07/02/24 00:24 Pulse Oximetry 100 07/02/24 00:24 Oxygen Delivery Method Room Air 07/02/24 00:24 Oxygen Flow Rate 0 07/02/24 00:24 Pain Level 10 07/02/24 00:42 Medical Decision Making This is a pleasant 29-year-old female with a past medical history of migraines, gastric bypass, Implanon device for control, cholecystectomy, who presents today for headache. Patient states that at 9 PM she had a sudden onset severe headache in the front right aspect of her head. It was severe and sharp in nature. It slowly got slightly better over the next hour or so but has otherwise continued throughout the evening. While she has had headaches before, she states that she has never had 1 that is felt like this, or has been so severe. This evening about an hour or so ago, while her headache was continuing she went to get a shower. She did have 2 episodes of syncope while trying to stand up and get in the shower. Her significant other was there with her, and caught her. The 2 episodes happened in succession. She does admit to having these syncopal episodes frequently with her headaches. She admits to mild vision changes which she describes as blurry vision. Her symptoms are made worse with light and loud noise. These appear to be consistent with her other headaches. She did take Tylenol/Excedrin earlier in the evening, but this is not improved her symptoms. She denies any numbness or tingling. No vomiting or diarrhea. No fever or chills. No neck pain or stiffness. Of note the patient did have a noncontrasted CT scan of her head about 5 days ago. No angiography though. Patient denies family or personal history of Mariela-Danlos syndrome, Marfan syndrome, or aneurysms. Physical exam demonstrates no nuchal rigidity or neck stiffness. Normal neurologic assessment. No dysdiadochokinesia or dysmetria. Notably dry mucous membranes. Differential includes chronic migraine. However the atypical components of this being a sudden onset, the worst that she has ever had, it certainly does raise current clinical's concern for aneurysm versus aneurysmal rupture. Less likely given no history of vascular pathology personally or in her family. She is within the 6-hour window for diagnostic evaluation with imaging. Symptoms appear inconsistent with meningitis with no neck stiffness or nuchal rigidity or fever. Patient is currently having menstrual bleeding, help syndrome or eclampsia is unlikely. Brain tumor unlikely given the recent imaging. We will treat with Solu-Medrol, Ofirmev, Compazine and Benadryl. Will rehydrate. I had a long discussion with her regarding the risks and benefits of further imaging, but definitely the benefits of CT angiography given the atypical nature of this episode of headaches. Through shared decision making process, we will move forward with angiography imaging of the head and neck to rule out bleed or aneurysm as we are within the 6-hour window. No indication for lumbar puncture at this time. Will treat the patient's pain, monitor closely and reassess. Additionally the patient has no chest pain or shortness of breath to suggest PE. EKG shows no dysrhythmia, epsilon wave or delta wave. I suspect the syncope was secondary to the headache rather than a cardiac event. 1:18 AM While getting up to go to CT imaging the patient had an episode of syncope. She was standing right next to the nurse, but then fell forward and hit her head. No evidence of significant trauma on exam. Will continue with imaging and pain control. Will evaluate for osseous abnormality post fall. 330 On reassessment patient's headache is notably improved symptoms are now gone completely. She feels well would like to go home. Repeat neurologic assessment shows no evidence of neurologic deficits. Laboratory workup is benign. EKG benign. Patient got up and ambulated well and had no episode of syncope. CT imaging shows no evidence of aneurysm, bleed, tumor or other abnormality. Symptoms at this time appear consistent with migraine headache. Symptoms inconsistent with aneurysmal bleed/rupture. No evidence of meningitis or tumor. Patient stable for discharge. I have extensively reviewed the treatment plan and discharge instructions with the patient and their family. I have addressed all patient concerns at this time. The patient and family was made aware of what symptoms to monitor for that would warrant a return to the emergency department. Discussed the plan with the patient and family, they demonstrate verbal understanding and agreement with our assessment and plan at this time. The documentation in this chart was dictated using [employer] dictation software. Please excuse any dictation errors. FINDINGS: ANTERIOR CIRCULATION: Right internal carotid artery: Intracranial segment is patent with no significant stenosis or occlusion. No aneurysm. Right middle cerebral artery: No occlusion or significant stenosis. No aneurysm. Right anterior cerebral artery: No occlusion or significant stenosis. No aneurysm. Left internal carotid artery: Intracranial segment is patent with no significant stenosis. No aneurysm. Left middle cerebral artery: No occlusion or significant stenosis. No aneurysm. Left anterior cerebral artery: No occlusion or significant stenosis. No aneurysm. POSTERIOR CIRCULATION: Right vertebral artery: No occlusion or significant stenosis. No aneurysm. Left vertebral artery: No occlusion or significant stenosis. No aneurysm. Basilar artery: No occlusion or significant stenosis. No aneurysm. Right posterior cerebral artery: The right P1 segment is mildly hypoplastic. Left posterior cerebral artery: No occlusion or significant stenosis. No aneurysm. Right posterior communicating artery: Right posterior communicating artery is patent. Left posterior communicating artery: The left posterior communicating artery is hypoplastic. HEAD: Brain: Empty sella is noted. No acute intracranial hemorrhage or infarct is identified. No mass effect. There is no midline shift. Cerebral ventricles: Normal. No ventriculomegaly. Bones: Unremarkable. No acute fracture. Paranasal sinuses: Visualized sinuses are normal. No fluid levels. Mastoid air cells: Visualized mastoids are normal. No mastoid effusion. Soft tissues: Unremarkable. IMPRESSION: 1. No large vessel occlusion or aneurysm. 2. Hypoplastic right P1 segment. 3. Empty sella. FINDINGS: Right common carotid artery: No stenosis. No dissection or occlusion. Right internal carotid artery: No stenosis of the extracranial segment. No dissection or occlusion. Right external carotid artery: No occlusion or stenosis of the origin. Left common carotid artery: No stenosis. No dissection or occlusion. Left internal carotid artery: No stenosis of the extracranial segment. No dissection or occlusion. Left external carotid artery: No occlusion or stenosis of the origin. Right vertebral artery: No stenosis. No dissection or occlusion. Left vertebral artery: No stenosis. No dissection or occlusion. Soft tissues: Normal. No significant soft tissue swelling. Bones/joints: No acute fracture. Mediastinal space: Soft tissue density is seen in the anterior mediastinum, suggesting residual thymic tissue. IMPRESSION: 1. No large vessel occlusion or aneurysm. 2. Soft tissue density in the anterior mediastinum, suggesting residual thymic tissue FINDINGS: Bones: There are no acute wedge compression fracture deformities. There are no focal bone lesions. There is normal vertebral body alignment. Intervertebral disc spaces are well- maintained. Lungs: Lung apices are normal. Soft tissues: There is minimal calcification of the anterior spinal ligament at C3-C4. IMPRESSION: 1. No fracture. 2. Minimal calcification of the anterior spinal ligament at C3-C4. Thank you for allowing us to participate in the care of your patient. Quality:SDOH Health Related Social Needs: No Data to Display PFSH All Active Problems (Updated 07/02/24 @ 01:58 by Jaret Akbar DO) Headache, migraine (Chronic) depression (Acute) Elevated liver enzymes (Acute) breast pain (Acute) Chronic pain (Chronic) Treated with Tramadol by Roberto Fernandes Mastitis (Acute) Hernia of anterior abdominal wall (Acute) Maternal varicella, non-immune (Acute) Attention deficit hyperactivity disorder (ADHD) (Acute) BMI 35.0-35.9,adult (Acute) Insomnia (Acute) Anxiety (Chronic 02/27/14) Medical History (Updated 07/02/24 @ 01:58 by Jaret Akbar DO) History of pre-eclampsia in prior , currently Gestational hypertension Flank pain in patient Anemia affecting History of dumping syndrome Dental abscess GERD (gastroesophageal reflux disease) Endoscopy 10/05/19 History of migraine Nonintractable headache (03/04/17) Diarrhea (01/17/17) After cholecystectomy Depressive disorder (02/27/14) Concussion (09/04/12) Surgical History (Updated 10/20/23 @ 10:16 by Anamika Gandhi MD) H/O gastric bypass exploration wound abscess umbilicus (11/19/15) Dr. Torres. umbilical infection drained, debrided and closed by secondary intention. 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 excision. Dr. Perry. Urachal sinus excsion. (06/11/15) Dr. Perry. Cholecystectomy (~06/2014) @ [facility], DR. TORRES. 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 Pets and animals: No Sexually active: Yes Do you think of yourself as: straight/heterosexual Current gender identity: female What is your relationship status?: living with partner How often do you talk on the phone with friends or family?: three or more times per week How often do you get together with friends or relatives?: once per week How often do you attend roman catholic or buddhism services?: decline to answer Do you belong to any clubs or organized social groups?: no Panel score (0-1 are the most socially isolated patients): 2 What type of physical activity do you participate in: walking Duration: < 15 minutes/day Frequency: 1-2 times per week Geovanna/Sikhism: Synagogue Special geovanna needs: No Seatbelt use: always Helmet use: Yes Helmet use: always Drive intox or ride w/intox city bus driver: No Do you feel safe at home: Yes Do you feel safe in your relationship?: Yes History History 4 Para 3 Hx # Term Pregnancies 1 Multiple births 0 Hx # Pregnancies 1 Ectopic pregnancies 0 AB induced 0 Hx Number of Living Children 3 AB spontaneous 1 Past Pregnancies Del. Date GA/Weeks # Preg Succ Route Wgt Sex Labor Lgth Anesth esia Location Prov Complic 03/17/17 37 No Yes vaginal 2778.253 g Female [address] [place] [address] 07/03/18 8 No No 05/18/19 36 No Yes vaginal 2920.001 g Female [facility] C 10/21/23 34 No Yes vaginal Female [facility] Delivery Date: 03/17/17 Last Updated by: Akilah Albarran CNM IOL at [facility] for pre-eclampsia and BMI, on Mag, epidural. [place] Delivery Date: 07/03/18 Last Updated by: Akilah Albarran CNM SAB at [facility] with D and C Delivery Date: 05/18/19 Last Updated by: Akilah Albarran CNM Referred to [facility] from [facility] due to BMI. IOL @ [facility] for severe pre-eclampsia, Mag, miso x2 then labor went fast, [place] Delivery Date: 10/21/23 Last Updated by: Traci Spangler LPN Patient w/Pre-eclampsia; severe features; Induced
[2024-07-02] MEDS: ACETAMINOPHEN 1,000 MG/100 ML BAG 400 MG IVPB (00:58)
[2024-07-02] MEDS: Omnipaque 350 MG/ML 100 ML BTL IJ (01:01)
[2024-07-02] MEDS: Normal Saline - Diluent 50 ML VIAL IJ (01:02)
[2024-07-02] MEDS: Normal Saline Flush 10 ML SYR IVP (01:02)
[2024-07-02 01:10] LABS: PTT Activated 25.7 sec (20.6-30.2); Prothrombin Time 10.1 sec (9.1-11.1)
[2024-07-02 01:12] LABS: ALT 25 U/L (14-59); AST 16 U/L (15-37); Alkaline Phosphatase 81 U/L (46-116); Anion Gap 9.5 mmol/L (3-11); BUN 10 mg/dL (7-18); Bilirubin, Total 0.42 mg/dL (0.2-1.0); CO2 26.5 mmol/L (21.0-32.0); CREATININE 0.8 mg/dL (0.55-1.02); Calcium 9.1 mg/dL (8.5-10.1); Chloride 106 mmol/L (98-107); Glucose 97 mg/dL (74-106); Potassium 3.5 mmol/L (3.5-5.1); Sodium 142 mmol/L (136-145); Total Protein 7.2 g/dL (6.4-8.2)
--- NOTE | 2024-07-02 01:15 | DI.CT_ITS ---
Exam(s) CT CERVICAL SPINE RECONS EXAM: CT CERVICAL SPINE RECONS CLINICAL HISTORY: fall, hit head. TECHNIQUE: Imaging Protocol: Axial computed tomography images with coronal and sagittal reformatted images were created and reviewed COMPARISON: CT CT BRAIN NECK CTA from 07/02/2024 FINDINGS: CERVICAL SPINE: There is no evidence of acute fracture. No significant prevertebral soft tissue swelling. No significant listhesis. No significant disc space narrowing. There is no significant facet arthropathy. No facet joint malalignment. Mild straightening of the cervical curvature noted which is either due to positioning or muscle spasm No significant osseous lesions evident. IMPRESSION: No evidence of cervical spine fracture, malalignment, nor acute compromise of the cervical spinal can al. There is some mild straightening of the cervical curvature which is either related to positioning or muscle spasm RADIATION DOSE DELIVERED: 2,336.07mGy.cm Total DLP DATA REPOSITORY: All CT scans at this facility are submitted to the National Radiology Data Registry (NRDR) Dose Index Registry (DIR) with the [employer] (ACR). RADIATION OPTIMIZATION: All CT scans at this facility use at least one of these dose optimization te chniques: automated exposure control; mA and/or kV adjustment per patient size (includes targeted exa ms where dose is matched to clinical indication); or iterative reconstruction.
[2024-07-02 01:19] LABS: COVID-19 PCR Negative (Negative); Influenza A PCR Negative (Negative); Influenza B PCR Negative (Negative); RSV PCR Negative (Negative)
[2024-07-02 01:31] LABS: Source Nasopharynx
[2024-07-02 02:02] LABS: Lab Add On Test DONE
[2024-07-02 02:17] LABS: Troponin I < 4 ng/L (<or=51)
--- NOTE | 2024-07-02 02:40 | DI.VRAD_ITS ---
PROCEDURE INFORMATION: Exam: CTA Head Without And With Contrast, Arteriography Exam date and time: 07/02/2024 1:18 AM Age: 29 years old Clinical indication: Pain and injury or trauma; Blunt trauma; Headache; Injury date: 06/04/24; Injury details: Fall with syncope; Worst LOPEZ of life, right frontal, syncope TECHNIQUE: Imaging protocol: Computed tomographic angiography of the head without and with contrast. Exam focused on the arteries. 3D rendering (Not supervised by radiologist): MIP and/or 3D reconstructed images were created by the technologist. Radiation optimization: All CT scans at this facility use at least one of these dose optimization techniques: automated exposure control; mA and/or kV adjustment per patient size (includes targeted exams where dose is matched to clinical indication); or iterative reconstruction. Contrast material: OMNIPAQUE 350; Contrast volume: 70 ml; Contrast route: INTRAVENOUS (IV); COMPARISON: CT HEAD WO 06/20/2024 3:03 PM FINDINGS: ANTERIOR CIRCULATION: Right internal carotid artery: Intracranial segment is patent with no significant stenosis or occlusion. No aneurysm. Right middle cerebral artery: No occlusion or significant stenosis. No aneurysm. Right anterior cerebral artery: No occlusion or significant stenosis. No aneurysm. Left internal carotid artery: Intracranial segment is patent with no significant stenosis. No aneurysm. Left middle cerebral artery: No occlusion or significant stenosis. No aneurysm. Left anterior cerebral artery: No occlusion or significant stenosis. No aneurysm. POSTERIOR CIRCULATION: Right vertebral artery: No occlusion or significant stenosis. No aneurysm. Left vertebral artery: No occlusion or significant stenosis. No aneurysm. Basilar artery: No occlusion or significant stenosis. No aneurysm. Right posterior cerebral artery: The right P1 segment is mildly hypoplastic. Left posterior cerebral artery: No occlusion or significant stenosis. No aneurysm. Right posterior communicating artery: Right posterior communicating artery is patent. Left posterior communicating artery: The left posterior communicating artery is hypoplastic. HEAD: Brain: Empty sella is noted. No acute intracranial hemorrhage or infarct is identified. No mass effect. There is no midline shift. Cerebral ventricles: Normal. No ventriculomegaly. Bones: Unremarkable. No acute fracture. Paranasal sinuses: Visualized sinuses are normal. No fluid levels. Mastoid air cells: Visualized mastoids are normal. No mastoid effusion. Soft tissues: Unremarkable. IMPRESSION: 1. No large vessel occlusion or aneurysm. 2. Hypoplastic right P1 segment. 3. Empty sella. PROCEDURE INFORMATION: Exam: CTA Neck Without And With Contrast Exam date and time: 07/02/2024 1:18 AM Age: 29 years old Clinical indication: Pain and injury or trauma; Blunt trauma; Headache; Injury date: 06/04/24; Injury details: Fall with syncope; Worst LOPEZ of life, right frontal, syncope TECHNIQUE: Imaging protocol: Computed tomographic angiography of the neck without and with contrast. Exam focused on the cervical segments of the vasculature. 3D rendering (Not supervised by radiologist): MIP and/or 3D reconstructed images were created by the technologist. Radiation optimization: All CT scans at this facility use at least one of these dose optimization techniques: automated exposure control; mA and/or kV adjustment per patient size (includes targeted exams where dose is matched to clinical indication); or iterative reconstruction. Contrast material: OMNIPAQUE 350; Contrast volume: 70 ml; Contrast route: INTRAVENOUS (IV); COMPARISON: CT NECK W 06/20/2024 3:03 PM FINDINGS: Right common carotid artery: No stenosis. No dissection or occlusion. Right internal carotid artery: No stenosis of the extracranial segment. No dissection or occlusion. Right external carotid artery: No occlusion or stenosis of the origin. Left common carotid artery: No stenosis. No dissection or occlusion. Left internal carotid artery: No stenosis of the extracranial segment. No dissection or occlusion. Left external carotid artery: No occlusion or stenosis of the origin. Right vertebral artery: No stenosis. No dissection or occlusion. Left vertebral artery: No stenosis. No dissection or occlusion. Soft tissues: Normal. No significant soft tissue swelling. Bones/joints: No acute fracture. Mediastinal space: Soft tissue density is seen in the anterior mediastinum, suggesting residual thymic tissue. IMPRESSION: 1. No large vessel occlusion or aneurysm. 2. Soft tissue density in the anterior mediastinum, suggesting residual thymic tissue. REFERENCES: NASCET CRITERIA. The degree of stenosis in the cervical segment of the internal carotid artery is based on NASCET criteria. Normal is no stenosis. Mild is less than 50% stenosis. Moderate is 50-69% stenosis. Severe is 70% to 99% stenosis. Total occlusion is no detectable patent lumen. Dictated and Authenticated by: Carlos Parisi MD. Orderin Naomie Raygoza MD
--- NOTE | 2024-07-02 02:49 | DI.VRAD_ITS ---
PROCEDURE INFORMATION: Exam: CT Cervical Spine Without Contrast Exam date and time: 07/02/2024 1:18 AM Age: 29 years old Clinical indication: Injury or trauma; Blunt trauma; Injury date: 06/04/24; Injury details: Fall w syncope TECHNIQUE: Imaging protocol: Computed tomography of the cervical spine without contrast. 3D rendering (Not supervised by radiologist): MIP and/or 3D reconstructed images were created by the technologist. Radiation optimization: All CT scans at this facility use at least one of these dose optimization techniques: automated exposure control; mA and/or kV adjustment per patient size (includes targeted exams where dose is matched to clinical indication); or iterative reconstruction. COMPARISON: CT CERVICAL SPINE RECONS 07/02/2024 1:18 AM FINDINGS: Bones: There are no acute wedge compression fracture deformities. There are no focal bone lesions. There is normal vertebral body alignment. Intervertebral disc spaces are well-maintained. Lungs: Lung apices are normal. Soft tissues: There is minimal calcification of the anterior spinal ligament at C3-C4. IMPRESSION: 1. No fracture. 2. Minimal calcification of the anterior spinal ligament at C3-C4. Dictated and Authenticated by: Carlos Parisi MD. Orderin Naomie Raygoza MD
== END 2024-07-02 03:35 | disposition home or self-care (01) ==
PROVIDERS: Emergency Provider Student in an Organized Health Care Education/Training Program; PCP Nurse Practitioner Family
DX: G43.909 Migraine, unspecified, not intractable, without status migrainosus (principal); R55 Syncope and collapse; E23.6 Other disorders of pituitary gland; Z98.84 Bariatric surgery status
CPT/HCPCS: 36415; 70496; 70498; 72125; 80053; 81025; 87637; 93005; 96365; 96375; 99285; 84484; 85025; 85610; 85730; 93010; J0131; J0780; J1200; J2919; J3490

== ENCOUNTER 2025-01-02 20:22 | Outpatient (CLI) | payer SELFPAY ==
[2025-01-02 14:41] LABS: Abs Immature Grans 0.01 10^3/uL (0.0-0.06); HCT 34.2 % (36.0-46.0); HGB 11.0 g/dL (11.2-15.7); Immature Grans % 0.2 %; MCH 28.0 pg (27.0-33.0); MCHC 32.2 % (32.0-36.0); MCV 87 fL (80-95); MPV 9.2 fL (8.0-11.0); Platelet Count 142 10^3/uL (130-400); RBC 3.93 10^6/uL (3.93-5.22); RDW 12.8 % (11.7-14.6); RDW-SD 40.7 fL; WBC 4.71 10^3/uL (4.4-10.8)
[2025-01-02 15:30] LABS: ALT 13 U/L (14-59); AST 11 U/L (15-37); Albumin 3.5 g/dL (3.4-5.0); Alkaline Phosphatase 70 U/L (46-116); Anion Gap 7.2 mmol/L (3-11); BUN 10 mg/dL (7-18); Bilirubin, Total 0.3 mg/dL (0.2-1.0); CO2 27.8 mmol/L (21.0-32.0); Calcium 8.3 mg/dL (8.5-10.1); Calculated LDL 67 mg/dL (<100); Chloride 105 mmol/L (98-107); Cholesterol 140 mg/dL (<200); Estimated GFR 126.09 (mL/min/1.73m2); Ferritin 7 ng/mL (8-252); Glucose 96 mg/dL (74-106); HDL Cholesterol 43 mg/dL (>or=50); Potassium 3.8 mmol/L (3.5-5.1); Sodium 140 mmol/L (136-145); Total Protein 6.1 g/dL (6.4-8.2); Triglyceride 153 mg/dL (<150); Vitamin D 25 Total 22 ng/mL (30-100)
[2025-01-02 15:36] LABS: HCG Qual (Serum) Negative
[2025-01-04 09:16] LABS: TSH (W/Ref FT4) 1.05 uIU/mL (0.36-3.74)
== END 2025-01-02 20:23 | disposition home or self-care (01) ==
LOC: LBO 20:23
PROVIDERS: Nurse Practitioner Adult Health; Obstetrics & Gynecology; PCP Nurse Practitioner Family; Visit Provider Nurse Practitioner Family
DX: E55.9 Vitamin D deficiency, unspecified (principal); O99.019 Anemia complicating pregnancy, unspecified trimester; R53.83 Other fatigue; O13.9 Gestational [pregnancy-induced] hypertension without significant proteinuria, unspecified trimester; N64.52 Nipple discharge; R51.9 Headache, unspecified
CPT/HCPCS: 36415; 80053; 80061; 82306; 82728; 84146; 84443; 84703; 85025

== ENCOUNTER 2025-01-04 05:34 | Outpatient (CLI) | payer SELFPAY ==
--- NOTE | 2025-01-04 06:45 | DI.RAD_ITS ---
Exam(s) RF BARIUM SWALLOW EXAM: RF BARIUM SWALLOW CLINICAL HISTORY: Dysphagia, GERD, K21.9, R13.10 TECHNIQUE: 2D and realtime digital imaging was performed. CONTRAST MATERIAL: Thick and thin barium and barium tablet were administered. COMPARISON: CT CT CERVICAL SPINE RECONS from 07/02/2024 FINDINGS: The PA and lateral chest films show normal heart size and clear lung brown. The lateral dynamo tender view of the neck is unremarkable. Esophagus: The patient swallowed barium without difficulty. Noevidence for mucosal erosions. Nofold thickening. No mass is visible. Nostricture. Motility: There is a normal primary stripping wave. No tertiary contractions were noted. There is no hiatal hernia. Nogastroesophageal reflux was observed during the exam. Gastric bypass noted. IMPRESSION: Normal barium swallow. Gastric bypass noted. RADIATION DOSE DELIVERED: marla Cloud=11.3 mGy
[2025-01-04] MEDS: Simethicone/Sod Bicarb/Cit Ac, 4 gram PACKET 1 PACKET PO (11:38)
[2025-01-04] MEDS: Barium Sulfate 700 MG TAB PO (11:39)
[2025-01-04] MEDS: Barium Sulfate 98% W/W 140 ML BTL PO (11:40)
[2025-01-04] MEDS: Barium Sulfate 60% W/V 355 ML BTL PO (11:40)
== END 2025-01-04 05:54 ==
PROVIDERS: PCP Nurse Practitioner Family; Visit Provider Nurse Practitioner Family
DX: K21.9 Gastro-esophageal reflux disease without esophagitis (principal)
CPT/HCPCS: 74221; J3490

== ENCOUNTER 2025-01-11 08:46 | Emergency (ER) | payer SELFPAY ==
[2025-01-11 08:54] VITALS: BP 120/58; PULSE 82; RESP 10; TEMP 36.5; O2SAT 98
--- NOTE | 2025-01-11 09:15 | DI.MRI_ITS ---
Exam(s) MR BRAIN WO EXAM: MR BRAIN WO CLINICAL HISTORY: headache, weakness TECHNIQUE: Multiplanar multisequence MRI of the brain was performed. COMPARISON: No exams were available for comparison FINDINGS: CEREBRAL PARENCHYMA: There is no evidence of intracranial hemorrhage, mass effect, or shift of midline structures. There are no extra-axial fluid collections. Ventricles are not enlarged or shifted. No evidence of cerebellar tonsillar ectopia. There is no significant focal signal abnormality in the cerebellar hemispheres nor within the elieser, midbrain, and thalami. There is no abnormal signal abnormality in the periventricular white matter. No evidence of demyelinating disease There is no significant focal signal abnormality evident on diffusion imaging to suggest acute ischemic event. PITUITARY GLAND: No mass nor parasellar abnormality. Normal posterior pituitary neurohypophysis T1 bright spot is noted. No obvious abnormality in the cavernous sinuses. FLOW VOIDS: The expected flow void are noted. No evidence of obvious aneurysm nor obvious vascular malformation. PARANASAL SINUSES: The visualized paranasal sinuses appear unremarkable. No obvious finding ORBITS: No obvious findings. IMPRESSION: No significant intracranial findings on this noninfused MRI scan of the brain. No evidence of demyelinating disease nor other abnormal white matter signal. Pituitary fossa appears unremarkable Called by myself to ER 01/11/2025 at 11:57 a.m. DATA REPOSITORY:
--- NOTE | 2025-01-11 09:30 | RT.EKG_ITS ---
APPROVED REPORT Exam: Resting ECG Reason for Exam: syncope Patient Location: E HR:52 bpm ECG Measurements Heart Rate 52 AXIS RI 119 P 50 QRSd 88 QRS -8 QT 451 T 11 QTc 421 Conclusion Sinus bradycardia...rate< 60
--- NOTE | 2025-01-11 09:34 | W.ED.GENAD ---
Discharge Plan Disposition Patient Disposition: Home Condition: Stable Discharge Details Clinical Impression: Headache, Generalized weakness, Loss of consciousness, Bradycardia, Anemia Primary Care Provider: Bridget Rhoades ED Provider: José Miguel Hunter Home Meds and New Rx's Prescriptions: Continued Nexplanon 68 mg implant 1 implant subdermal ONCE Rx Instructions: as a single dose omeprazole 20 mg capsule,delayed release(DR/EC) 20 mg PO DAILY Qty: 90 3RF methadone 10 mg/5 mL solution 60 mg PO DAILY Patient Comments: Nurtec ODT 75 mg tablet,disintegrating 75 mg PO ONCE PRN (Reason: migraine headache) Qty: 10 3RF Rx Instructions: As a single dose. No more than one dose in 24 hours. topiramate [Topamax] 25 mg tablet 25 mg PO QHS Qty: 30 3RF triamcinolone acetonide 0.1 % cream 1 applic topical BID Qty: 80 2RF prochlorperazine maleate 5 mg tablet 5 mg PO TID PRN (Reason: nausea and vomiting) Qty: 30 0RF docusate sodium [Colace] 100 mg capsule 100 mg PO BID Qty: 60 5RF ferrous sulfate 300 mg (60 mg iron)/5 mL liquid 60 mg PO Q OTHER DAY Qty: 500 3RF cholecalciferol (vitamin D3) 50 mcg (2,000 unit) capsule 2,000 unit PO DAILY Qty: 90 3RF Rx Instructions: Take 1 daily after the 8 weeks of the 50,000unit dose magnesium oxide 400 mg (241.3 mg magnesium) tablet 400 mg PO DAILY Patient Comments: TAKE ONE TABLET BY MOUTH EVERY DAY dextroamphetamine-amphetamine [Adderall XR] 30 mg capsule,extended release 24hr 30 mg PO BID MDD 30mg Discharge Instructions Instructions: Headache, Adult ED, Weakness ED Additional Instructions: Please follow-up with your primary care physician. Call today to arrange timely follow-up for early next week. Please rest at home over the next few days. Do not operate heavy machinery or drive a motor vehicle. Do not take a bath unattended. Do not use stairs unattended. Return to the emergency department immediately for any worsening or new concerning symptoms. Referrals: NEUROLOGY,[facility] [OTHER, Neurology] Bridget Rhoades NP [Primary Care Provider, Medicine] HPI General Mode of arrival: ambulatory. Date/Time Provider Initiated Documentation: 01/11/25 08:48. Limitations to Documentation: no limitations. Information obtained by: patient. HPI Narrative: HISTORY OF PRESENT ILLNESS 29-year-old female with migraines presenting with increased frequency of headaches and fatigue. Experiencing migraines for the past year with fainting episodes. Last week, fainted at work and hit her head. Since 01/06/2025, has been sleeping excessively, with memory issues and about 20 episodes of losing consciousness, eyes rolling, and shaking. Headaches daily for the past week, unable to work due to exhaustion. Medication for migraines effective until this week. Reports difficulty swallowing, blurry peripheral vision, no changes in smell, generalized weakness, and multiple head injuries over the past year. Extreme fatigue since 01/06/2025, only getting up to use the bathroom. PAST SURGICAL HISTORY: Gastric bypass. Related Data Home Medications ?Medication ?Instructions ?Recorded ?Confirmed triamcinolone acetonide 0.1 % 1 applic topical BID #80 grams 03/19/24 01/11/25 topical cream magnesium oxide 400 mg (241.3 mg 400 mg PO DAILY 07/02/24 01/11/25 magnesium) tablet etonogestrel 68 mg subdermal 1 implant subdermal ONCE 07/03/24 01/11/25 implant (Nexplanon) rimegepant 75 mg disintegrating 75 mg PO ONCE PRN migraine 08/09/24 01/11/25 tablet (Nurtec ODT) headache #10 tabs topiramate 25 mg tablet (Topamax) 25 mg PO QHS #30 tabs 08/09/24 01/11/25 prochlorperazine maleate 5 mg 5 mg PO TID PRN nausea and 12/11/24 01/11/25 tablet vomiting #30 tabs methadone 10 mg/5 mL oral solution 60 mg PO DAILY 01/02/25 01/11/25 omeprazole 20 mg capsule,delayed 20 mg PO DAILY #90 caps 01/02/25 01/11/25 release docusate sodium 100 mg capsule 100 mg PO BID #60 caps 01/03/25 01/11/25 (Colace) cholecalciferol (vitamin D3) 50 2,000 unit PO DAILY #90 caps 01/07/25 01/11/25 mcg (2,000 unit) capsule ferrous sulfate 300 mg (60 mg 60 mg PO Q OTHER DAY #500 mL 01/07/25 01/11/25 iron)/5 mL oral liquid dextroamphetamine-amphetamine ER 30 mg PO BID 01/11/25 01/11/25 30 mg 24hr capsule,extend release (Adderall XR) Previous Rx's ?Medication ?Instructions ?Recorded triamcinolone acetonide 0.1 % 1 applic topical BID #80 grams 03/19/24 topical cream rimegepant 75 mg disintegrating 75 mg PO ONCE PRN migraine 08/09/24 tablet (Nurtec ODT) headache #10 tabs topiramate 25 mg tablet (Topamax) 25 mg PO QHS #30 tabs 08/09/24 prochlorperazine maleate 5 mg 5 mg PO TID PRN nausea and 12/11/24 tablet vomiting #30 tabs omeprazole 20 mg capsule,delayed 20 mg PO DAILY #90 caps 01/02/25 release docusate sodium 100 mg capsule 100 mg PO BID #60 caps 01/03/25 (Colace) cholecalciferol (vitamin D3) 50 2,000 unit PO DAILY #90 caps 01/07/25 mcg (2,000 unit) capsule ferrous sulfate 300 mg (60 mg 60 mg PO Q OTHER DAY #500 mL 01/07/25 iron)/5 mL oral liquid Allergies Allergy/AdvReac Type Severity Reaction Status Date / Time codeine phosphate (From Allergy Intermediate Skin Rash Verified 01/11/25 08:59 Tylenol-Codeine #3) hydrocodone Allergy Intermediate Nausea, Verified 01/11/25 08:59 rash NSAIDS (Non-Steroidal AdvReac Intermediate Other (See Verified 01/11/25 08:59 Anti-Inflamma Comment) rizatriptan AdvReac Intermediate rash Verified 01/11/25 08:59 General Stated Complaint: Headache BOGDAN: 3 Review of Systems All systems reviewed & are unremarkable except as noted in HPI and below Exam Const General: cooperative and no acute distress HENHI Head: atraumatic Mouth: moist mucous membranes Eyes Conjunctivae: normal conjunctivae Sclera: normal sclerae EOM: EOM intact bilaterally Neck Neck: trachea midline and supple Resp Auscultation: clear to auscultation bilaterally, no rales, no rhonchi and no wheezes Cardio Rate: regular rate and not tachycardic Rhythm: regular rhythm GI Palpation: soft, not firm, no guarding, no masses, not rigid and nontender Skin General skin exam: no rashes or lesions noted Neuro General: patient alert, patient awake, patient oriented x3 and tone normal Cranial Nerves: CN's II-XI intact bilaterally Cognition: normal cognition Speech: speech normal Motor: strength 5/5 throughout Sensory Exam: no sensory deficits noted Extrem General: no edema Psych Appearance: grossly normal Mental Status: mental status grossly normal Speech and Movement: speech and movement normal Course Vital Signs Vital signs: Vital Signs Temperature 36.5 C 01/11/25 08:54 Pulse 82 01/11/25 08:54 Respiratory Rate 10 L 01/11/25 08:54 Blood Pressure 120/58 L 01/11/25 08:54 Pulse Oximetry 98 01/11/25 08:54 Temperature 36.5 C 01/11/25 08:54 Temperature Source Oral 01/11/25 08:54 Pulse 82 01/11/25 08:54 Respiratory Rate 10 L 01/11/25 08:54 Blood Pressure 120/58 L 01/11/25 08:54 Blood Pressure Position Sitting 01/11/25 08:54 Pulse Oximetry 98 01/11/25 08:54 Oxygen Delivery Method Room Air 01/11/25 08:54 Oxygen Flow Rate 0 01/11/25 08:54 Medical Decision Making ASSESSMENT AND PLAN Initial Assessment: 29-year-old female with migraines, headache, fainting, memory loss, and shaking episodes. Patient hemodynamically stable. Neurologically intact. Differential Diagnosis: - Seizures: Episodes of losing consciousness, shaking, and eye-rolling. EEG recommended. Follow up with neurology. - hypothyroidism - MS - Head trauma: Recent head injury. M - Chronic anemia: Labs indicate chronic anemia. Further evaluation with PCP. ED Course: - Blood work conducted. - Patient was given Ativan prior to MRI for anxiety/claustrophobia. - MRI of the brain was performed and reviewed and interpreted by radiology:No significant intracranial findings on this noninfused MRI scan of the brain. No evidence of demyelinating disease nor other abnormal white matter signal. Pituitary fossa appears unremarkable - EKG: Sinus bradycardia 52 bpm. - Labs reviewed, nondiagnostic except chronic anemia. TSH nl. Clinical Impression: - Headache - Seizure-like episodes - Chronic anemia Disposition: - Discharge: Home. Advised to avoid driving and operating heavy machinery until cleared. - Follow-Up: PCP next week for reassessment. Also follow-up with neurology next week. She is established with an [facility] neurology. Tick panel pending at time of discharge. This document was written with the assistance of MATTHEW Aleman. The patient consented to its use. Lab Data Labs: Laboratory Tests Range/Units 01/11/25 01/11/25 09:45 10:08 WBC (4.4-10.8) 10^3/uL 4.16 L RBC (3.93-5.22) 10^6/uL 3.90 L Hgb (11.2-15.7) g/dL 10.9 L Hct (36.0-46.0) % 34.5 L MCV (80-95) fL 89 MCH (27.0-33.0) pg 27.9 MCHC (32.0-36.0) % 31.6 L RDW (11.7-14.6) % 13.4 Plt Count (130-400) 10^3/uL 153 MPV (8.0-11.0) fL 8.8 Immature Gran % % 0.2 Neutrophils % % 53.8 Lymphocytes % % 35.1 Monocytes % % 7.5 Eosinophils % % 2.4 Basophils % % 1.0 Nucleated RBC % (0.0-0.3) % 0.0 Absolute Neutrophils (1.2-6.7) 10^3/uL 2.24 Absolute Lymphocytes (1.2-3.4) 10^3/uL 1.46 Absolute Monocytes (0.1-0.8) 10^3/uL 0.31 Absolute Eosinophils (0.0-0.7) 10^3/uL 0.10 Absolute Basophils (0.0-0.2) 10^3/uL 0.04 Sodium (136-145) mmol/L 141 Potassium (3.5-5.1) mmol/L 4.5 Chloride (98-107) mmol/L 108 H Carbon Dioxide (21.0-32.0) mmol/L 28.5 Anion Gap (3-11) mmol/L 4.5 BUN (7-18) mg/dL 9 Creatinine (0.55-1.02) mg/dL 0.7 Est GFR (CKD-EPI 2020) (mL/min/1.73m2) 121.49 Glucose (74-106) mg/dL 98 Calcium (8.5-10.1) mg/dL 8.3 L Magnesium (1.8-2.4) mg/dL 1.9 Total Bilirubin (0.2-1.0) mg/dL 0.3 AST (15-37) U/L 12 L ALT (14-59) U/L 14 Alkaline Phosphatase (46-116) U/L 62 Total Protein (6.4-8.2) g/dL 5.8 L Albumin (3.4-5.0) g/dL 3.3 L Urine Color (Yellow) Yellow Urine Clarity (Clear) Clear Urine pH (5-8) 5.5 Ur Specific [place] (1.005-1.025) 1.025 Urine Protein (Neg-Trace) mg/dL Negative Urine Ketones (Negative) mg/dL Negative Urine Blood (Negative) Negative Urine Nitrite (Negative) Negative Urine Bilirubin (Negative) Negative Urine Urobilinogen (Up to 0.2) mg/dL 0.2 Ur Leukocyte Esterase (Negative) Negative Urine Glucose (Negative) mg/dL Negative PFSH All Active Problems Anemia (Chronic) Bradycardia (Acute) Loss of consciousness (Acute) Generalized weakness (Acute) Headache (Acute) Iron deficiency anemia (Acute) Opioid use disorder (Chronic) Methadone through [facility] Galactorrhea (Acute) Vitamin D deficiency (Acute) Nipple discharge (Acute) Migraine headache without aura (Acute) Increased frequency of headaches (Acute) Migraine with aura (Acute) Breakthrough bleeding on Nexplanon (Acute) History of migraine (Acute) Nexplanon in place (Acute) depression (Acute) Elevated liver enzymes (Acute) Chronic pain (Chronic) Treated with Tramadol by Roberto Fernandes Hernia of anterior abdominal wall (Acute) Maternal varicella, non-immune (Acute) Attention deficit hyperactivity disorder (ADHD) (Chronic) BMI 35.0-35.9,adult (Acute) Insomnia (Acute) Anxiety (Chronic 02/27/14) Medical History Eczema Mastitis breast pain History of pre-eclampsia in prior , currently Gestational hypertension Flank pain in patient Anemia affecting History of dumping syndrome Dental abscess GERD (gastroesophageal reflux disease) Endoscopy 10/05/19 Nonintractable headache (03/04/17) Diarrhea (01/17/17) After cholecystectomy Depressive disorder (02/27/14) Concussion (09/04/12) Surgical History H/O gastric bypass exploration wound abscess umbilicus (11/19/15) Dr. Torres. umbilical infection drained, debrided and closed by secondary intention. 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 excision. Dr. Perry. Urachal sinus excsion. (06/11/15) Dr. Perry. Cholecystectomy (~06/2014) @ [facility], DR. TORRES. 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 Pets and animals: No Sexually active: Yes Do you think of yourself as: straight/heterosexual Current gender identity: female What is your relationship status?: living with partner How often do you talk on the phone with friends or family?: three or more times per week How often do you get together with friends or relatives?: once per week How often do you attend anabaptist or worship services?: decline to answer Do you belong to any clubs or organized social groups?: no Panel score (0-1 are the most socially isolated patients): 2 What type of physical activity do you participate in: walking Duration: < 15 minutes/day Frequency: 1-2 times per week Geovanna/Islam: Shinto Special geovanna needs: No Seatbelt use: always Helmet use: Yes Helmet use: always Drive intox or ride w/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 Date GA/Weeks # Preg Succ Route Wgt Sex Labor Lgth Anesthesia Location Prov Complic 03/17/17 37 No Yes vaginal 2778.253 g Female [address] [place] [address] 07/03/18 8 No No 05/18/19 36 No Yes vaginal 2920.001 g Female [facility] 10/21/23 34 No Yes vaginal Female [facility] Delivery Date: 03/17/17 Last Updated by: Akilah Albarran CNM IOL at [facility] for pre-eclampsia and BMI, on Mag, epidural. [place] Delivery Date: 07/03/18 Last Updated by: Akilah Albarran CNM SAB at [facility] [place] with D and C Delivery Date: 05/18/19 Last Updated by: Akilah Albarran CNM Referred to [facility] from [facility] due to BMI. IOL @ [facility] for severe pre-eclampsia, Mag, miso x2 then labor went fast, [place] Delivery Date: 10/21/23 Last Updated by: Traci Spangler LPN Patient w/Pre-eclampsia; severe features; Induced
[2025-01-11 09:55] LABS: Glucose Negative (Negative)
[2025-01-11 10:12] LABS: Abs Immature Grans 0.01 10^3/uL (0.0-0.06); HCT 34.5 % (36.0-46.0); HGB 10.9 g/dL (11.2-15.7); Immature Grans % 0.2 %; MCH 27.9 pg (27.0-33.0); MCHC 31.6 % (32.0-36.0); MCV 89 fL (80-95); MPV 8.8 fL (8.0-11.0); Platelet Count 153 10^3/uL (130-400); RBC 3.90 10^6/uL (3.93-5.22); RDW 13.4 % (11.7-14.6); RDW-SD 42.7 fL; WBC 4.16 10^3/uL (4.4-10.8)
[2025-01-11] MEDS: LORazepam 1 MG TAB PO (10:32)
[2025-01-11 10:34] LABS: ALT 14 U/L (14-59); AST 12 U/L (15-37); Albumin 3.3 g/dL (3.4-5.0); Alkaline Phosphatase 62 U/L (46-116); Anion Gap 4.5 mmol/L (3-11); BUN 9 mg/dL (7-18); Bilirubin, Total 0.3 mg/dL (0.2-1.0); CO2 28.5 mmol/L (21.0-32.0); Calcium 8.3 mg/dL (8.5-10.1); Chloride 108 mmol/L (98-107); Estimated GFR 121.49 (mL/min/1.73m2); Glucose 98 mg/dL (74-106); Magnesium 1.9 mg/dL (1.8-2.4); Potassium 4.5 mmol/L (3.5-5.1); Sodium 141 mmol/L (136-145); Total Protein 5.8 g/dL (6.4-8.2)
[2025-01-11 11:57] VITALS: BP 123/59; PULSE 63; O2SAT 97
[2025-01-11 12:35] VITALS: BP 146/84; PULSE 74; O2SAT 99
[2025-01-11 13:08] LABS: TSH (W/Ref FT4) 1.61 uIU/mL (0.36-3.74)
[2025-01-13 20:34] LABS: B. miyamotoi PCR Negative (Negative); Babesia divergens/MO-1 Negative (Negative); Ehrlichia muris eauclairensis Negative (Negative)
[2025-01-14 11:36] LABS: Lyme Ab w Rflx to Lyme Confirm Negative (Negative)
== END 2025-01-11 12:39 | disposition home or self-care (01) ==
PROVIDERS: Emergency Provider Student in an Organized Health Care Education/Training Program; PCP Nurse Practitioner Family
DX: R51.9 Headache, unspecified (principal); R53.1 Weakness; R00.1 Bradycardia, unspecified; D64.9 Anemia, unspecified; E23.6 Other disorders of pituitary gland; R40.20 Unspecified coma
CPT/HCPCS: 99284 ×2; 81025; 36415; 80053; 87798; 93005; 70551; 81003; 83735; 84443; 85025; 86618; 93010